=== PATIENT | male | born 1955 | race Asian ===

== ENCOUNTER 2016-10-28 14:32 | Emergency (ER) | payer OTHER ==
[~2016-10-28] VITALS: Ht 160 cm; Wt 61.8 kg
[~2016-10-28 14:32] MED LIST: CLR10 PO; CYCL0.05 OP; CZR50 PO; FLNIN/ NAE; LUTE20CA PO; METO25TA3 PO; MULT-506 PO; OMEP20CA59 PO; ZLF/50 PO
[2016-10-28 14:39] VITALS: TEMP 36.3; O2SAT 100
[2016-10-28] MEDS ORDERED: SODIUM CHLORIDE 0.9% 1000ML 1,000 ML IV SCH (14:42)
[2016-10-28] MEDS ORDERED: SODIUM CHLORIDE 0.9% 1000ML 1,000 ML IV STA (14:42)
[2016-10-28] MEDS ORDERED: SODIUM CHLORIDE 0.9% 500ML 500 ML IV STA (14:42)
[2016-10-28 14:52] VITALS: Ht 160 cm; Wt 61.8 kg
--- NOTE | 2016-10-28 14:59 | DIAGNOSTIC IMAGING REPORT ---
CHEST ONE VIEW PORTABLE HISTORY: Stroke symptoms. COMPARISON: Chest 09/18/2015. FINDINGS: The lungs are clear. Cardiac silhouette is normal in size. No pleural effusions. No pneumothorax. IMPRESSION: No acute process. Electronically signed by: Renard Menendez M.D. 10/28/2016 2:57 PM Dictated Date/Time: 10/28/2016 2:56 PM
--- NOTE | 2016-10-28 15:11 | EMERGENCY ROOM VISIT NOTE ---
History Report prepared by [place]: Anibal Leavitt Under the Supervision of: Dr. Alfredo Day M.D. 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 Per the patient's son, he was shovelling snow with his father and noticed he was face down on the snow. He is not sure if his father fell, and did not notice his father having difficulty shovelling the snow. He tried to help his father up but he could not support himself. He called his mom for her to come, and together they were able to help his father inside. The son notes that his father has progressive aphasia , but seems slower to respond now than at baseline. He did not have any one- sided weakness. The son states that his father has not been recently ill, has not vomited, and adds that it is not unusual for him to shovel snow. They traveled to [facility] yesterday by car, but have not recently travelled outside of the country. The patient is up to date on his tetanus shot. Per the nurse, EMS reported that the patient was sweaty, had a low systolic pressure, and had a poor radial pulse. He did not receive fluids by EMS. 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 Review of Systems See HPI for pertinent positives & negatives. A total of 10 systems reviewed and were otherwise negative. Past Medical & Surgical Medical Problems: (1) Anxiety (2) HTN (hypertension) (3) Hyperlipemia Family History No significant family history Social History Smoking Status: Former Smoker Marital Status: Housing Status: lives with family Occupation Status: employed Current/Historical Medications Scheduled Cyclosporine Oph 0.05% (Restasis Oph 0.05%), 2 DROPS OP DAILY Losartan Potassium (Losartan Potassium), 50 MG PO DAILY Lutein (Lutein), 20 MG PO DAILY Metoprolol Succinate (Toprol Xl), 25 MG PO DAILY Multivitamin (Multivitamin), 1 TABLET PO DAILY Omeprazole (Prilosec), 20 MG PO DAILY Sertraline HCl (Sertraline HCl), 50 MG PO DAILY Allergies Coded Allergies: Penicillins (Verified Allergy, Intermediate, RASH, 10/28/16) Shellfish (Verified Allergy, Intermediate, HIVES, 10/28/16) Physical Exam Vital Signs Date Time Temp Pulse Resp B/P Pulse Ox O2 Delivery O2 Flow Rate FiO2 10/28/16 18:20 65 18 128/68 100 10/28/16 17:45 63 18 137/62 96 Room Air 10/28/16 16:29 64 18 122/61 97 Room Air 10/28/16 15:18 58 16 131/58 98 Room Air 10/28/16 15:01 60 10/28/16 14:39 36.3 60 14 139/58 100 Room Air 10/28/16 14:39 100 Room Air Physical Exam GENERAL: Patient is in no acute distress. HEENT: No acute trauma, normocephalic atraumatic, mucous membranes moist, no nasal congestion, no scleral icterus. Pupils are equal, round, and reactive to light. NECK: No stridor, no adenopathy, no meningismus, trachea is midline. LUNGS: Clear to auscultation bilaterally, no wheeze, no rhonchi, breath sounds equal. HEART: Without murmurs gallops or rubs, regular rate and rhythm. ABDOMEN: Soft, nontender, bowel sounds positive, no hernias, no peritonitis. EXTREMITIES: No cyanosis or edema, full range of motion of all the joints without pain or difficulty, no signs for acute trauma. NEUROLOGIC: Awake, alert, moving all extremities equally, no obvious focal or motor deficits, no facial droop. Patient is nonverbal which is baseline. SKIN: No rash, no jaundice, no diaphoresis. Medical Decision & Procedures ER Provider Diagnostic Interpretation: X ray results and stated below per my interpretation and radiologist interpretation. Other radiology results and stated below per my review and radiologist interpretation: CHEST ONE VIEW PORTABLE FINDINGS: The lungs are clear. Cardiac silhouette is normal in size. No pleural effusions. No pneumothorax. IMPRESSION: No acute process. Electronically signed by: Renard Menendez M.D. 10/28/2016 2:57 PM Dictated Date/Time: 10/28/2016 2:[address] SCAN OF THE BRAIN WITHOUT IV CONTRAST FINDINGS: Brain parenchyma: There is asymmetric frontal lobe atrophy, which has significantly progressed from the sixth 2012 examination. There is only minimal microangiopathic change. There is no hemorrhage, mass effect, or evidence of acute territorial ischemia by CT criteria. Fernandez-white matter is preserved. No extra-axial fluid collection is seen. Ventricles, sulci, cisterns: Prominent secondary to involutional change. Intracranial vasculature: There is atherosclerotic calcification of the cavernous carotid arteries. Calvarium: Unremarkable. Sinuses and mastoids: There is mild mucosal thickening noted throughout the paranasal sinuses. The mastoid air cells are well pneumatized. Orbits: The bony orbits are grossly intact. IMPRESSION: 1. There is no hemorrhage, mass effect, or evidence of acute territorial ischemia by CT criteria. 2. There is asymmetric frontal lobe atrophy, which has significantly progressed from the 04/07/2012 examination. Nonemergent follow-up with neurology is recommended. Electronically signed by: Alfredo Pacheco M.D. 10/28/2016 3:20 PM Dictated Date/Time: 10/28/2016 3:12 PM Laboratory Results 10/28/16 14:39 Red Blood Count 4.56, Mean Corpuscular Volume 87.7, Mean Corpuscular Hemoglobin 30.7, Mean Corpuscular Hemoglobin Concent 35.0, Mean Platelet Volume 10.6, Neutrophils (%) (Auto) 44.1, Lymphocytes (%) (Auto) 42.1, Monocytes (%) (Auto) 8.5, Eosinophils (%) (Auto) 4.1, Basophils (%) (Auto) 0.6, Neutrophils # (Auto) 3.63, Lymphocytes # (Auto) 3.47, Monocytes # (Auto) 0.70, Eosinophils # (Auto) 0.34, Basophils # (Auto) 0.05 10/28/16 14:39 Test 10/28/16 14:39 10/28/16 15:00 10/28/16 16:40 10/28/16 17:10 White Blood Count 8.24 K/uL (4.8-10.8) Red Blood Count 4.56 M/uL (4.7-6.1) Hemoglobin 14.0 g/dL (14.0-18.0) Hematocrit 40.0 % (42-52) Mean Corpuscular Volume 87.7 fL (80-100) Mean Corpuscular Hemoglobin 30.7 pg (25-34) Mean Corpuscular Hemoglobin Concent 35.0 g/dl (32-36) Platelet Count 199 K/uL (130-400) Mean Platelet Volume 10.6 fL (7.4-10.4) Neutrophils (%) (Auto) 44.1 % Lymphocytes (%) (Auto) 42.1 % Monocytes (%) (Auto) 8.5 % Eosinophils (%) (Auto) 4.1 % Basophils (%) (Auto) 0.6 % Neutrophils # (Auto) 3.63 K/uL (1.4-6.5) Lymphocytes # (Auto) 3.47 K/uL (1.2-3.4) Monocytes # (Auto) 0.70 K/uL (0.11-0.59) Eosinophils # (Auto) 0.34 K/uL (0-0.5) Basophils # (Auto) 0.05 K/uL (0-0.2) RDW Standard Deviation 42.2 fL (36.4-46.3) RDW Coefficient of Variation 13.3 % (11.5-14.5) Immature Granulocyte % (Auto) 0.6 % Immature Granulocyte # (Auto) 0.05 K/uL (0.00-0.02) Prothrombin Time 10.5 SECONDS (9.0-12.0) Prothromb Time International Ratio 1.0 (0.9-1.1) Activated Partial Thromboplast Time 20.1 SECONDS (21.0-31.0) Partial Thromboplastin Ratio 0.8 Anion Gap 11.0 mmol/L (3-11) Est Creatinine Clear Calc Drug Dose 47.4 ml/min Estimated GFR () 67.8 Estimated GFR (Non- 58.5 BUN/Creatinine Ratio 12.8 (10-20) Calcium Level 9.0 mg/dl (8.5-10.1) Magnesium Level 2.1 mg/dl (1.8-2.4) Total Bilirubin 0.5 mg/dl (0.2-1) Direct Bilirubin 0.1 mg/dl (0-0.2) Aspartate Amino Transf (AST/SGOT) 20 U/L (15-37) Alanine Aminotransferase (ALT/SGPT) 26 U/L (12-78) Alkaline Phosphatase 58 U/L (45-117) Total Creatine Kinase 120 U/L (39-308) Creatine Kinase MB 1.6 ng/ml (0.5-3.6) Creatine Kinase MB Ratio 1.3 (0-3.0) Troponin I < 0.015 ng/ml (0-0.045) Total Protein 7.4 gm/dl (6.4-8.2) Albumin 4.1 gm/dl (3.4-5.0) Bedside Glucose 113 mg/dl (70-99) Urine Color YELLOW Urine Appearance CLEAR (CLEAR) Urine pH 6.5 (4.5-7.5) Urine Specific [place] 1.015 (1.000-1.030) Urine Protein TRACE (NEG) Urine Glucose (UA) NEG (NEG) Urine Ketones NEG (NEG) Urine Occult Blood NEG (NEG) Urine Nitrite NEG (NEG) Urine Bilirubin NEG (NEG) Urine Urobilinogen NEG (NEG) Urine Leukocyte Esterase NEG (NEG) Urine WBC (Auto) 1-5 /hpf (0-5) Urine RBC (Auto) 0-4 /hpf (0-4) Urine Hyaline Casts (Auto) 10-30 /lpf (0-5) Urine Epithelial Cells (Auto) >30 /lpf (0-5) Urine Bacteria (Auto) NEG (NEG) Urine Renal Epithelial Cells 0-5 /lpf (0-5) Urine Opiates Screen NEG (NEG) Urine Methadone, Qualitative NEG (NEG) Urine Barbiturates NEG (NEG) Urine Phencyclidine (PCP) Level NEG (NEG) Ur Amphetamine/Methamphetamine NEG (NEG) MDMA (Ecstasy) Screen NEG (NEG) Urine Benzodiazepines Screen NEG (NEG) Urine Cocaine Metabolite NEG (NEG) Urine Marijuana (THC) NEG (NEG) Bedside Troponin I 0.000 ng/ml (0-0.045) Laboratory results reviewed by me. Medications Administered Medications (Trade) Dose Ordered Sig/Nikita Route Start Time Stop Time Status Last Admin Dose Admin Sodium Chloride 500 ml @ 999 mls/hr Q31M STAT IV 10/28/16 14:42 10/28/16 15:12 DC 10/28/16 14:42 999 MLS/HR Sodium Chloride (Nss 1000ml) 1,000 ml @ 125 mls/hr Q8H STAT IV 10/28/16 14:42 10/28/16 19:15 DC 10/28/16 14:42 125 MLS/HR ED Course 1436: The patient was evaluated in room C10. A complete history and physical exam was performed. 1442: Ordered NSS 1,000 ml @ 125 mls/hr IV, NSS 500 ml @ 999 mls/hr IV, and NSS 1,000 ml @ 50 mls/hr IV. 1637: The nurses are working on getting a urine sample from the patient. 1654: I updated the patient. His family his happy is back at baseline. 1755: Nurses note he is back to baseline and did well on an ambulation trial. 1800: Reevaluated the patient. Discussed results and discharge instructions: He verbalized understanding and agreement. The patient is ready for discharge. Medical Decision Differentials include stroke, hypotension, dehydration, dysrhythmia, IL, anemia , electrolyte imbalance, and infection. There is no leukocytosis or concerning anemia. No significant electrolyte abnormality, kidney failure or hepatitis. EKG shows a sinus bradycardia, no acute ischemia. Cardiac enzyme testing 2 is not suggestive of acute cardiac injury. Chest x-ray shows no pneumonia or mediastinal widening. Brain CT shows atrophy, no acute bleed or mass effect. Urine tox is negative. Urinalysis does not show evidence for infection. On exam, the patient had no focal neurologic deficits. The patient received IV saline, his blood pressure has remained stable, he has no complaints or concerns. As per family he is back to baseline. The patient was able to walk in the emergency room at baseline without difficulty. The patient is doing well, he has had no recurrence of symptoms. The cause for the the patient's presentation is unclear although he may have just overdone it with the snow shoveling. The family feels this is likely what happened. The patient would like to be discharged home, this seems reasonable. He can return for worsening symptoms. Impression Primary Impression: Syncope Departure Information Dispostion Home / Self-Care Referrals Iglesia Wade M.D. (PCP) Additional Instructions rest fluids follow with your doctor this week do not overdo it with snow shoveling lab testing today was all ok return if worsening
[2016-10-28 15:18] LABS: BASO % 0.6 %; BASO ABS # 0.05 K/uL (0-0.2); COMPLETE YES; EOS % 4.1 %; IG% 0.6 %; LYMPH % 42.1 %; LYMPH ABS # 3.47 K/uL (1.2-3.4); MEAN CELL VOLUME 87.7 fL (80-100); MEAN CORPUSCULAR HEMOGLOBIN 30.7 pg (25-34); MEAN PLATELET VOLUME 10.6 fL (7.4-10.4); MONO % 8.5 %; NEUT % 44.1 %; PLATELET COUNT 199 K/uL (130-400); RED BLOOD COUNT 4.56 M/uL (4.7-6.1); WHITE BLOOD COUNT 8.24 K/uL (4.8-10.8)
--- NOTE | 2016-10-28 15:21 | DIAGNOSTIC IMAGING REPORT ---
CT SCAN OF THE BRAIN WITHOUT IV CONTRAST CLINICAL HISTORY: Generalized weakness. Stroke like symptoms. COMPARISON STUDY: CT of the brain dated 04/07/2012. TECHNIQUE: Unenhanced axial CT scan of the brain is performed from the vertex to the skull base. CT DOSE: 537.48 mGy.cm FINDINGS: Brain parenchyma: There is asymmetric frontal lobe atrophy, which has significantly progressed from the sixth 2012 examination. There is only minimal microangiopathic change. There is no hemorrhage, mass effect, or evidence of acute territorial ischemia by CT criteria. Fernandez-white matter is preserved. No extra-axial fluid collection is seen. Ventricles, sulci, cisterns: Prominent secondary to involutional change. Intracranial vasculature: There is atherosclerotic calcification of the cavernous carotid arteries. Calvarium: Unremarkable. Sinuses and mastoids: There is mild mucosal thickening noted throughout the paranasal sinuses. The mastoid air cells are well pneumatized. Orbits: The bony orbits are grossly intact. IMPRESSION: 1. There is no hemorrhage, mass effect, or evidence of acute territorial ischemia by CT criteria. 2. There is asymmetric frontal lobe atrophy, which has significantly progressed from the 04/07/2012 examination. Nonemergent follow-up with neurology is recommended. Electronically signed by: Alfredo Pacheco M.D. 10/28/2016 3:20 PM Dictated Date/Time: 10/28/2016 3:12 PM
[2016-10-28 15:28] LABS: PARTIAL THROMBOPLASTIN RATIO 0.8; PROTHROMBIN TIME (PATIENT) 10.5 SECONDS (9.0-12.0)
[2016-10-28 15:38] LABS: ALT/SGPT 26 U/L (12-78); AST/SGOT 20 U/L (15-37); BLOOD UREA NITROGEN 17 mg/dl (7-18); BUN/CREATININE RATIO 12.8 (10-20); CARBON DIOXIDE 27 mmol/L (21-32); CHLORIDE 105 mmol/L (98-107); GLUCOSE 105 mg/dl (70-99); MAGNESIUM 2.1 mg/dl (1.8-2.4); POTASSIUM 3.9 mmol/L (3.5-5.1); SODIUM 143 mmol/L (136-145)
[2016-10-28 15:43] LABS: ALKALINE PHOSPHATASE 58 U/L (45-117); CKMB/CK RATIO 1.3 (0-3.0)
[2016-10-28 17:02] LABS: URINE APPEARANCE CLEAR (CLEAR); URINE BILIRUBIN NEG (NEG); URINE COLOR YELLOW; URINE EPITHELIAL CELL AUTO >30 /lpf (0-5); URINE NITRITE NEG (NEG); URINE PH 6.5 (4.5-7.5); URINE SPECIFIC GRAVITY 1.015 (1.000-1.030); UROBILINOGEN NEG (NEG)
[2016-10-28 17:05] LABS: MANUAL MICROSCOPIC REQUIRED? NO; REVIEW REQ? YES
[2016-10-28 17:21] LABS: BENZODIAZEPINE, URINE NEG (NEG); COCAINE,URINE NEG (NEG); PHENCYCLIDINE, URINE NEG (NEG)
[2016-10-28 18:20] VITALS: BP 128/68; PULSE 65; O2SAT 100
== END 2016-10-28 18:21 | disposition home or self-care (01) ==
LOC: EDBD 14:32 → C.EDC 14:33
DX: R55 Syncope and collapse (principal); I10 Essential (primary) hypertension; Z79.899 Other long term (current) drug therapy; Z87.891 Personal history of nicotine dependence

== ENCOUNTER → 2017-06-17 | Outpatient (CLI) | payer OTHER ==
[~2017-06-17] MED LIST changes: -CLR10 PO; -FLNIN/ NAE
--- NOTE | 2017-06-18 06:25 | PAP/PSG TECHNICIAN REPORT ---
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 Name: LIOR BARRAGAN Interpreting Physician: Mehrdad Batista M.D. 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 Sex: Male Age: 61 StudyType: PSG Weight: 125 lbs Height: 61 years, Height 5' 3" Neck Circum: BMI: 22.14 Medications: Flonase 50 MCG/ACT, Cpzaar 50 mg, Aricept 5 mg, Zoloft 50 mg, Zyrtec 10 mg, Prilosec 20 mg, Patient History Study started on room air with no ETCO2 monitoring in room #6. 61 yr old male here tonight for a possible split psg. He has progressive dementia with loud snoring and witnessed apneas. He did not fill out an ESS. His neck circ=13.5inches. His son is staying in the room with him. Parameters Monitored NPSG: E1-M2, E2-M1, Fp1-M2, Fp2-M1, F3-M2, F4-M2, F4-M1, C3-M2, C4-M2, C4-M1, O1-M2, O2-M2, O2-M1, T3-M2, T4-M1, P3-M2, P4-M1, CHIN1, CHIN2, HR, EKG, Legs, PFLOW, SNOR, FLOW, CFLOW, Tidal Volume, THOR, ABDO, SpO2, PLTH, CPRESS, ETCO2 Wave, ETCO2, pH Sleep Architecture Sleep Stages Time at Lights Off 10:04:44 PM STAGES Time (min.) TST (%) Time at Lights On 5:23:14 AM Wake 165.0 -- Total Recording Time (TRT) 439.00 min. N1 64.5 24 Total Sleep Period (TSP) 309.5 min. N2 176.0 64 Total Sleep Time (TST) 273.5min. N3 8.0 3 Awake Time 165.5 min. REM 25.0 9 Wake after Sleep Onset 117.5 min. Sleep Efficiency (SE) 62 % Sleep Onset Latency (PAXTON) 47.5 min. Number of Stage 1 Shifts None Awakenings 28 Stage Changes 124 Number of REM periods 6 REM 25.0 9 REM Latency 92.5 min. NREM 248.5 91 Body Position Analysis Supine Right Left Side Prone Vertical Total Sleep Time (min.) 428.9 0.0 0.0 0.00 0.0 0.0 Total Sleep Time (%) 100% 0% 0% 0 0% N/A% Total Sleep Time REM (min.) 25.0 0.0 0.0 None 0.0 0.0 Total Sleep Time NREM (min.) 248.5 0.0 0.0 None 0.0 0.0 Intermittent Wake (min.) 155.4 9.6 0.0 None 0.0 0.0 Total Sleep Period (%) 100% None None None None None Arousals Myoclonus (PLM) * Events Count Index Events Count Index Spontaneous 31 7 Events Awake (PLMW) 321 116.7 Respiratory 39 10.1 Events Asleep w/ Arousal (PLMA) 31 6.8 PLM 31 7 Events Asleep w/o Arousal (PLMS) 158 34.7 Snoring 5 1 Total Asleep 189 41.5 Total 105 23 Total 510 70 Respiratory Analysis * CA OA MA CH H RERA Total Count 0 43 1 0 79 0 123 Index 0.0 9.4 0.2 0 17.3 0 27.0 Mean Duration 0.0 21.8 27.7 0.00 26.7 0.0 25.0 Longest Duration 0.0 33.9 27.7 0.00 27.7 0.0 57.2 Respiratory Event Summary Total Supine ~Supine Right Left Prone REM NREM Apneas Count 44 44 N/A N/A N/A N/A 10 34 Index 9.7 10 N/A N/A N/A N/A 24 8 Hypopneas (4% Desat) Count 79 79 N/A N/A N/A N/A 9 70 Index 17.3 17.3 N/A N/A N/A N/A 21.6 16.9 Apneas & All Hypopneas Count 123 123 N/A N/A N/A N/A 19 104 Index 27.0 27 N/A N/A N/A N/A 45.6 25.1 Respiratory Events (Car Icer+All Hyp+RERA) Count 123 123 N/A N/A N/A N/A 19 104 Index 27.0 27 N/A N/A N/A N/A 45.6 25.1 Respiratory Related Arousal Count 39 123 N/A N/A N/A N/A 1 45 Index 10.1 10 N/A N/A N/A N/A 2 11 Snoring Analysis Supine Right Left Prone REM NREM Total Snore duration 17.8 min Snores count 802 N/A N/A N/A 48 754 802 Snore mean duration 1.3 Sec Snores index 176 N/A N/A N/A 115.2 182.1 175.9 TST with snoring (%) 6.5% Desaturation Event Summary: Minimum %SpO2 Event Count Mean/Min/Max Duration(sec.) Desaturation Index % Time In Bed > 90 162 26.0 / 0.0 / 59.3 25.6 86.8 86 - 90 12 17.3 / 1.4 / 30.0 13.3 12.4 81 - 85 0 N/A 0.0 0.8 76 - 80 0 N/A 0.0 0.0 71 - 75 0 N/A 0.0 0.0 66 - 70 0 N/A 0.0 0.0 61 - 65 0 N/A 0.0 0.0 56 - 60 0 N/A 0.0 0.0 51 - 55 0 N/A 0.0 0.0 < 50 0 N/A 0.0 0.0 Total REM NREM Awake <50% 0.0 min. 0.0 min. 0.0 min. 0.0 min. 51 - 60% 0.0 min. 0.0 min. 0.0 min. 0.0 min. 61 - 70% 0.0 min. 0.0 min. 0.0 min. 0.0 min. 71 - 80% 0.1 min. 0.0 min. 0.1 min. 0.0 min. 81 - 90% 57.7 min. 5.1 min. 36.9 min. 15.7 min. 91 - 100% 379.6 min. 19.9 min. 211.5 min. 148.2 min. Average 92 92 92 92 Minimum SpO2 79 80 79 82 Desaturation Event Index 22.7 43.2 29.9 10.9 # Desat. 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 Cardiac arrhythmia and PLM's noted, please see print out No bruxism noted. Snoring was noted and scored as a 3 on a scale of 1 through 5. (0=no snoring, 5=snoring loud enough to be heard through a closed door or down the [address] way) He did not use the restroom during the night. He did not qualify for a split night study. The final report will be interpreted and signed by a sleep physician. The completed physician report will then be placed in the patient medical record. Therapy (cm H2O) 0 TIB (min.) 438.5 TST (min.) 273.5 Sleep Onset (min.) 47.5 REM Onset From Sleep (min.) 92.5 Sleep Efficiency % 62 Wakefulness (%) 38 Wakefulness (min.) 165.5 NREM 1 (%) 24 NREM 1 (min.) 64.5 NREM 2 (%) 64 NREM 2 (min.) 176.0 NREM 3 (%) 3 NREM 3 (min.) 8.0 REM (%) 9 REM (min.) 25.0 # Arousals 105 Arousal Index 23 # Snore 802 Snore Index 175.9 AHI 27.0 AHI Supine 27 AHI Non-Supine N/A NREM AHI 25.1 REM AHI 45.6 RDI 27.0 # Obstructive Apnea 43 # Central Apnea 0 # Mixed Apnea 1 # Hypopneas 79 RERAs 0 Total Respiratory Events 139 Time Below SpO2 89% (min.) 12.3 Mean NREM SpO2 (%) 92 Mean REM SpO2 (%) 92 Mean Sleep SpO2 (%) 92 Min NREM SpO2 (%) 79 Min REM SpO2 (%) 80 Position Supine (min.) 428.9 Position Non-supine (min.) 0.0 LM Index Sleep 41.5 LM Index NREM 40.8 LM Index REM 48.0 Mean Heart Rate (bpm) 52 Min Heart Rate (bpm) 33
--- NOTE | 2017-07-03 15:22 | POLYSOMNOGRAPH REPORT ---
REFERRING PERSON: Dr. Dewayne Batista. CLINICAL PSYCHOLOGY PROFESSOR: Susan Valdez. Mr. Kinsey is a 61-year-old male sent for a possible split night sleep study. He has a history of memory loss, loud snoring and witnessed apneas. His Plain Sleepiness Scale score on the evening of this study was not recorded. BMI is 22.14. His son is staying in the room with him tonight. Following the technical and digital specifications of the [employer] [employer] (AASM) a standard diagnostic polysomnogram was performed monitoring EEG, EOG, EMG (chin and leg deviations), oxygen saturation, body position, digital video, respiratory effort and airflow. The sleep Stage and event scoring was based on the AASM Manual for the Scoring of Sleep and Associated Events 2007 edition. Apneas are defined as a drop in the peak thermal sensor excursion by >90% of baseline for at least 10 seconds. Hypopneas were scored using the 4% oxygen desaturation rule (4A-[employer]ic[employer]) and a decrease in the nasal pressure excursions by >30% of baseline for at least 10 seconds. Respiratory effort-related arousal (RERA's) is defined as a sequence of breaths lasting at least 10 seconds characterized by increasing respiratory effort or flattening of the nasal pressure waveform leading to an arousal from sleep when the sequence of breaths does not meet criteria for an apnea or hypopnea. Apnea Hypopnea index (AHI) is defined as the number of apneas and hypopneas occurring in an hour of sleep. Respiratory disturbance index (RDI) is defined as the number of apneas, hypopneas, and RERA's occurring in an hour of sleep. Mr. Kinsey's total sleep period time was 309.5 minutes. Total sleep time was 273.5 minutes. Sleep efficiency was 62%. Latency to sleep onset was 47.5 minutes. Wake after sleep onset was 117.5 minutes. Total non-REM sleep time was 248.5 minutes. He spent 24% of that time in N1 sleep, 64% in N2 sleep and 3% in N3 sleep. REM latency was 92.5 minutes. Total REM sleep time was 25 minutes or 9% of total sleep time. There were 105 cortical arousals from sleep. 31 of these arousals were spontaneous, 39 were due to respiratory events, 31 due to periodic limb movements of sleep and 5 were due to snoring. There was 189 periodic limb movements noted on this test. Limb movement index was 41.5. Limb movement with arousal index was 6.8. There were no central, 43 obstructive and 1 mixed apnea. There were 79 hypopnea. Apnea-hypopnea index was 27.0 consistent with moderately severe sleep apnea. AHI and supine sleep was 27 and REM was 45.6. This patient slept almost supine the entire night. There were 802 snoring events recorded. Total sleep time with snoring was 6.5%. Mean saturation during sleep was 92% with desaturations of 79%. Saturations were less than 89% for 14.3 minutes of recorded time. There were PACs noted on EKG monitoring. Heart rate was low as 33 beats per minute to a high of 75 beats per minute during sleep. IMPRESSION AND PLAN: A 61-year-old male with evidence of moderately severe sleep apnea and significant nocturnal hypoxemia on this sleep study. 1. The patient would likely benefit from positive airway pressure therapy. He should return to sleep lab for a full night titration and then based on those results, be started on equipment at home. A download from his machine can be reviewed in 1 month both to check compliance as well as AHI and further pressure adjustments can occur at that time. 2. Should this patient be unwilling or unable to tolerate CPAP therapy, he could be referred to ear, nose and throat or oral surgery/dental medicine (if appropriate) to discuss alternative treatments for sleep disordered breathing.
== END | disposition home or self-care (01) ==
LOC: C.NEUR 21:00
PROVIDERS: ATTEND Family Medicine
DX: R06.81 Apnea, not elsewhere classified (principal); R06.83 Snoring; G47.33 Obstructive sleep apnea (adult) (pediatric)

== ENCOUNTER → 2017-08-24 | Outpatient (CLI) | payer OTHER ==
--- NOTE | 2017-08-25 05:01 | PAP/PSG TECHNICIAN REPORT ---
[facility] Oil Developer Polysomnogram Report Study name: None Report date: 08/25/2017 Study date: 08/24/2017 Referring Physician: Carolnie Maria Name: LIOR BARRAGAN Interpreting Physician: Elbert Brewer M.D. Date of : 1955 Oil Developer: SHANE Downing. Sex: Male Age: 61 StudyType: PSG PAP Weight: 125 lbs Height: 61 years, Height 5' 3" Neck Circum:13.5inches BMI: 22.14 Medications: Flonase 50mcg/act, Cozaar 50mg, Aricept 5mg, Zoloft 50mg, Zyrtec 10mg, Prilosec 20mg Patient History Study started on room air with 4cwp cpap in room #6 61 yr old male here tonight for a new titration study. His son is staying with him tonight because of his dementia. He had a diagnostic psg done here 06/17/17 that had an AHI of27. His neck circ=13.5inches. Parameters Monitored NPSG: E1-M2, E2-M1, Fp1-M2, Fp2-M1, F3-M2, F4-M2, F4-M1, C3-M2, C4-M2, C4-M1, O1-M2, O2-M2, O2-M1, T3-M2, T4-M1, P3-M2, P4-M1, CHIN1, CHIN2, HR, EKG, Legs, PFLOW, SNOR, FLOW, CFLOW, Tidal Volume, THOR, ABDO, SpO2, PLTH, CPRESS, ETCO2 Wave, ETCO2, pH Sleep Architecture Sleep Stages Time at Lights Off 9:51:02 PM STAGES Time (min.) TST (%) Time at Lights On 4:46:32 AM Wake 115.5 -- Total Recording Time (TRT) 415.50 min. N1 78.0 26 Total Sleep Period (TSP) 371.0 min. N2 135.5 45 Total Sleep Time (TST) 300.0min. N3 27.5 9 Awake Time 115.5 min. REM 59.0 20 Wake after Sleep Onset 99.0 min. Sleep Efficiency (SE) 72 % Sleep Onset Latency (PAXTON) 16.5 min. Number of Stage 1 Shifts None Awakenings 28 Stage Changes 171 Number of REM periods 7 REM 59.0 20 REM Latency 63.0 min. NREM 241.0 80 Body Position Analysis Supine Right Left Side Prone Vertical Total Sleep Time (min.) 361.0 36.0 0.0 36.00 0.0 0.0 Total Sleep Time (%) 88% 12% 0% 12 0% N/A% Total Sleep Time REM (min.) 59.0 0.0 0.0 None 0.0 0.0 Total Sleep Time NREM (min.) 205.0 36.0 0.0 None 0.0 0.0 Intermittent Wake (min.) 97.0 18.5 0.0 None 0.0 0.0 Total Sleep Period (%) 87% None None None None None Arousals Myoclonus (PLM) * Events Count Index Events Count Index Spontaneous 38 8 Events Awake (PLMW) 97 50.4 Respiratory 31 6.4 Events Asleep w/ Arousal (PLMA) 56 11.2 PLM 54 11 Events Asleep w/o Arousal (PLMS) 208 41.6 Snoring 2 0 Total Asleep 264 52.8 Total 125 25 Total 361 52 Respiratory Analysis * CA OA MA CH H RERA Total Count 2 27 0 0 19 3 48 Index 0.4 5.4 0.0 0 3.8 1 10.2 Mean Duration 16.5 21.0 0.0 0.00 28.4 30.7 24.2 Longest Duration 21.2 31.5 0.0 0.00 0.0 38.3 54.7 Respiratory Event Summary Total Supine ~Supine Right Left Prone REM NREM Apneas Count 29 29 0 0 N/A N/A 11 18 Index 5.8 7 0 0.0 N/A N/A 11 4 Hypopneas (4% Desat) Count 19 19 0 0 N/A N/A 6 13 Index 3.8 4.3 0 0.0 N/A N/A 6.1 3.2 Apneas & All Hypopneas Count 48 48 0 0 N/A N/A 17 31 Index 9.6 11 0 0 N/A N/A 17.3 7.7 Respiratory Events (Neuroscientist+All Hyp+RERA) Count 48 51 0 0 N/A N/A 17 31 Index 10.2 12 0 0.0 N/A N/A 18.3 8.2 Respiratory Related Arousal Count 31 51 0 0 N/A N/A 6 26 Index 6.4 7 0 0 N/A N/A 6 6 Snoring Analysis Supine Right Left Prone REM NREM Total Snore duration 3.5 min Snores count 157 4 N/A N/A 65 96 161 Snore mean duration 1.3 Sec Snores index 36 7 N/A N/A 66.1 23.9 32.2 TST with snoring (%) 1.2% Desaturation Event Summary: Minimum %SpO2 Event Count Mean/Min/Max Duration(sec.) Desaturation Index % Time In Bed > 90 27 27.4 / 5.5 / 55.5 4.2 99.3 86 - 90 0 N/A 0.0 0.6 81 - 85 0 N/A 0.0 0.1 76 - 80 0 N/A 0.0 0.0 71 - 75 0 N/A 0.0 0.0 66 - 70 0 N/A 0.0 0.0 61 - 65 0 N/A 0.0 0.0 56 - 60 0 N/A 0.0 0.0 51 - 55 0 N/A 0.0 0.0 < 50 0 N/A 0.0 0.0 Total REM NREM Awake <50% 0.0 min. 0.0 min. 0.0 min. 0.0 min. 51 - 60% 0.0 min. 0.0 min. 0.0 min. 0.0 min. 61 - 70% 0.0 min. 0.0 min. 0.0 min. 0.0 min. 71 - 80% 0.0 min. 0.0 min. 0.0 min. 0.0 min. 81 - 90% 2.6 min. 0.3 min. 1.8 min. 0.5 min. 91 - 100% 381.9 min. 50.2 min. 233.9 min. 97.7 min. Average 94 94 94 94 Minimum SpO2 81 90 86 81 Desaturation Event Index 3.9 7.1 4.7 1.6 # Desat. Events below 89% 1 N/A 1 N/A Time(%) with Saturation below 89% 0.2 0.0 0.0 0.1 Time(min.) with Saturation below 89% 0.6 0.0 0.1 0.5 Time (mins) REM (mins) NREM (mins) % of TST SpO2 Below 90% 12 2 N10 0.2 SpO2 Below 88% 0 0 0 0 Heart Rate Analysis Min (bpm) Max (bpm) Average (bpm) Awake 42 127 60 NREM 33 73 57 REM 43 127 54 Overall 33 127 56 Supplemental O2 Values Minimum O2 level: None Value Start Time End Time Oil Developer Comments Mr. Barragan slept in the right and supine positions. Cardiac arrhythmia and numerous PLM's noted, please see print outs. No bruxism noted. CPAP was initiated at +4 CMH2O and up-titrated to a level of +15 CMH2O. A medium Quattro Air full face mask by [employer] was used during titration. He did not use the restroom during the night. He did awaken around 4:15 am and started pulling off wires and wanted to end study. The final report will be interpreted and signed by a sleep physician. The completed physician report will then be placed in the patient medical record. Therapy Event: Therapy (cm H20) 4 5 6 7 8 9 10 12 14 15 Total Time at Pressure (min.) 104.1 56.7 37.1 56.2 30.6 8.7 2.1 54.2 12.8 53.1 TST at Pressure (min.) 73.1 45.7 26.1 25.2 30.6 8.2 2.1 53.0 10.9 25.1 # Periods 1 1 1 1 1 1 1 1 1 1 Sleep Onset (min.) 16.5 0.0 0.0 0.0 0.0 0.0 0.0 0.0 1.8 0.0 REM Onset (min.) 79.5 N/A N/A N/A 29.9 0.3 N/A 38.0 1.8 0.0 Sleep Efficiency % 70 80 70 44 100 94 100 97 85 47 Wakefulness (%) 29.8 19.4 29.6 55.1 0.0 5.8 0.0 2.1 14.5 52.8 Wakefulness (min.) 31.0 11.0 11.0 31.0 0.0 0.5 0.0 1.2 1.8 28.0 NREM 1 (%) 13.5 47.2 42.1 22.4 5.5 25.2 78.0 6.5 0.0 0.0 NREM 1 (min.) 14.0 26.8 15.6 12.6 1.7 2.2 1.6 3.5 0.0 0.0 NREM 2 (%) 44.8 33.4 28.3 22.4 42.2 0.0 22.0 61.9 0.0 0.0 NREM 2 (min.) 46.6 18.9 10.5 12.6 12.9 0.0 0.5 33.5 0.0 0.0 NREM 3 (%) 11.5 0.0 0.0 0.0 50.7 0.0 0.0 0.0 0.0 0.0 NREM 3 (min.) 12.0 0.0 0.0 0.0 15.5 0.0 0.0 0.0 0.0 0.0 REM (%) 0.5 0.0 0.0 0.0 1.6 69.0 0.0 29.5 85.5 47.2 REM (min.) 0.5 0.0 0.0 0.0 0.5 6.0 0.0 16.0 10.9 25.1 # Arousals 14 48 26 19 3 6 2 6 0 1 Arousal Index 11.5 63.0 59.7 45.2 5.9 44.0 57.5 6.8 0.0 2.4 # Snore 21 27 9 10 9 13 1 47 10 14 Snore Index 17.2 35.5 20.7 23.8 17.7 95.2 28.8 53.2 54.9 33.5 AHI 0.0 7.9 13.8 14.3 2.0 51.3 28.8 18.1 27.5 0.0 AHI Supine 0.0 7.9 13.8 14.3 2.0 51.3 28.8 18.1 27.5 0.0 AHI Non-Supine 0.0 N/A N/A N/A N/A N/A N/A N/A N/A N/A NREM AHI 0.0 7.9 13.8 14.3 2.0 82.2 28.8 13.0 N/A N/A REM AHI 0.0 N/A N/A N/A 0.0 40.0 N/A 30.0 27.5 0.0 RDI 1.6 7.9 13.8 14.3 3.9 51.3 28.8 18.1 27.5 0.0 # Obstructive 0 3 2 3 0 2 0 14 3 0 # Central Ap 0 0 0 1 1 0 0 0 0 0 # Mixed 0 0 0 0 0 0 0 0 0 0 # Hypopneas 0 3 4 2 0 5 1 2 2 0 RERAS 2 0 0 0 1 0 0 0 0 0 Total Respiratory Events 2 6 6 6 2 7 1 16 5 0 Time Below SpO2 89.00% (min.) 0.0 0.0 0.0 0.1 0.0 0.0 0.0 0.0 0.0 0.0 Mean NREM SpO2 (%) 94 94 95 93 94 94 95 94 N/A N/A Mean REM SpO2 (%) 94 N/A N/A N/A 94 94 N/A 94 95 94 Mean Sleep SpO2 (%) 94 94 95 93 94 94 95 94 95 94 Min NREM SpO2 (%) 92 89 90 86 91 89 92 89 N/A N/A Min REM SpO2 (%) 94 N/A N/A N/A 92 90 N/A 91 92 92 Position Supine (min.) 37.1 45.7 26.1 25.2 30.6 8.2 2.1 53.0 10.9 25.1 Position Non-supine (min.) 36.0 0.0 0.0 0.0 0.0 0.0 0.0 0.0 0.0 0.0 LM Index Sleep 51.7 134.0 94.2 14.3 5.9 22.0 0.0 23.8 65.9 31.1 LM Index NREM 52.1 134.0 94.2 14.3 6.0 27.4 0.0 24.3 N/A N/A LM Index REM 0.0 N/A N/A N/A 0.0 20.0 N/A 22.5 65.9 31.1 Mean Heart Rate (bpm) 57 59 59 58 54 56 58 55 54 52 Min Heart Rate (bpm) 54 51 33 52 51 50 53 48 51 43
--- NOTE | 2017-08-27 10:34 | POLYSOMNOGRAPH REPORT ---
CLINICAL DATA: A 61-year-old male with BMI of 22.14 referred by Caroline Maria for CPAP titration study. He does have dementia. His son stayed with him for the titration study. He had a sleep study done on 06/17/2017 which showed moderate EZE with an AHI of 27. SLEEP ARCHITECTURE: Total sleep period was 371 minutes. Total sleep time was 300 minutes divided between 241 minutes of non-REM sleep and 59 minutes of REM sleep. Sleep onset latency was 16.5 minutes. REM latency was 63 minutes. Sleep efficiency was 72%. Wake after sleep onset was 99 minutes. Sleep consisted of stage N1 26%, stage N2 45%, stage N3 9% and REM 20%. AROUSAL DATA: 125 arousals recorded for an index of 25 per hour. RESPIRATORY DATA: Moderate PLMD was noted. There were 264 limb movements during sleep noted for an index of 52.8 per hour with arousal index of 11.2 per hour. RESPIRATORY DATA: AHI was 9.6. There were 2 central and 27 obstructive apneic episodes. The longest duration of apnea was 31.5 seconds. There were 99 hypopneic episodes with a mean duration of 28.4 seconds. OXIMETRY DATA: No significant hypoxemia was seen. Oxygen maria victoria was 86% during non-REM sleep. Mean saturation was 94%. Time below 88% was less than 1 minute. EKG: Heart rates ranged from 33 to 127 beats per minute. Frequent PACs were noted throughout the night. QUALITY ASSURANCE ENGINEER'S COMMENTS AND TREATMENT SUMMARY: The patient slept in the right and supine positions. The patient used the medium Quattro Air full facemask by [employer]. He was titrated up to 15 cm of water pressure. At his final pressure setting, he slept for 25 minutes with an AHI of 0. At 4:15 a.m., he awoke and started pulling off the wires and wanted to end the study. IMPRESSION: Moderate sleep apnea corrected with CPAP at 15 cm water pressure, medium Quattro Air full facemask by [employer]. RECOMMENDATIONS: The patient could be started on the above-noted treatment regimen and seen back in followup within 90 days to document efficacy and compliance. [facility]
== END | disposition home or self-care (01) ==
LOC: C.NEUR 21:00
PROVIDERS: ATTEND Nurse Practitioner Family
DX: R06.81 Apnea, not elsewhere classified (principal); R06.83 Snoring; G47.33 Obstructive sleep apnea (adult) (pediatric)

== ENCOUNTER 2024-02-07 07:27 | Inpatient (IN) ==
--- OUTSIDE RECORDS SUMMARY | 2024-02-07 07:32 | External Medical Summary | Summary of Care ---
Author Name Unknown Organization [facility] Address [address] [facility] [place] [address] Phone [phone] Care Team Providers Care Air Twist Operator Name Role Phone Gregory Arreola DO Primary Care Provider Encounter Details Date Type Department Care Team (Late st Contact Info) Description 08/27/2023 Telephone Pulmonary Medicine, [facility] [address] [place] [phone] Caroline Maria CRNP [address] [place] [id number] Allergies Active Allergy Reactions Criticality Noted Date Comments Cat Dander Allergy test positive Medium 10/15/2011 Dust Allergy test positive Medium 10/15/2011 Penicillins 10/09/1997 rash Ragweed Allergy test positive Medium 10/15/2011 Shellfish 09/02/2006 hives documented as of this encounter (statuses as of 08/27/2023) Medications Medication Sig Dispensed Refills Start Date End Date Status MULTI-VITAMIN PO TABS None Entered 0 Active LUTEIN 20 MG PO TABS None Entered 0 Ac tive cetirizine (ZYRTEC) 10 MG Tablet Take 1 Tablet by mouth in the morning. 0 Active cycloSPORINE 0.05 % Ophthalmic Emulsion Instill 2 Drops into eye. 0 09/18/2015 Active Prevail Adult Brief Large Use as directed 32 Each 5 08/16/2020 Active Disposable Underpads 17"x24" Use as directed. 5 Each 5 08/16/2020 Active Fish Oil 500 MG Oral Capsule Take 1 Capsule by mouth in the morning. 0 Active Diclofenac Sodium 1 % External Gel (Voltaren)Indication s:Osteoarthritis of both knees, unspecified osteoarthritis type Apply topically to affected area 2 times a day as needed for Pain, Moderate. Apply to the affected area of the knees bilaterally twice daily as needed for pain. 350 g 3 04/18/2021 Active Rollator Ultra-LightIndicatio ns:Dementia associated with other underlying disease without behavioral disturbance (HCC),Dementia without behavioral disturbance, unspecified dementia type,Muscle rigidity,Ambulatory dysfunction rollator with seat 1 Each 0 04/28/2022 Active Carbidopa-Levodopa 25-100 MG Oral Tablet (Sinemet) Take 2 tablets three times daily. 180 Tablet 3 02/26/2023 Active Additional Information Patient taking differently: 1 Tablet Oral Daily(AM), Take 2 tablets three times daily., Reported on 08/13/2023 Metoprolol Tartrate 25 MG Oral Tablet (Lopressor) Take one-half tablet by mouth in the morning and one-half tablet before bedtime. 45 Tablet 7 05/19/2023 Active Losartan Potassium 50 MG Oral Tablet (Cozaar) Take 1 Tablet by mouth in the morning. 90 Tablet 3 05/19/2023 Active Atorvastatin Calcium 20 MG Oral Tablet (Lipitor) Take 1 Tablet by mouth in the morning. 90 Tablet 3 05/19/2023 Active Sertraline HCl 50 MG Oral Tablet (Zoloft) Take 1 Tablet by mouth in the morning. 90 Tablet 3 05/19/2023 Active Donepezil HCl 5 MG Oral Tablet (Aricept) Take 1 Tablet by mouth every night at bedtime. Take with largest meal of the day. 90 Tablet 3 05/19/2023 Active Omeprazole 20 MG Oral Capsule Delayed Release (PriLOSEC) Take 1 Capsule by mouth every night at bedtime. 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 Acute pharyngitis 11/06/2012 11/26/2012 Dysfunction of eustachian tube 11/06/2012 07/06/2017 Allergic rhinitis 11/06/2012 11/26/2012 Speech abnormality 10/15/2011 Overview: Primary Progressive Aphasia More specific code in use. Dyslipidemia, goal to be determined 10/04/2009 12/13/2016 Overview: Per Lipid Taxonomy. Backache 06/12/2009 11/26/2012 ADVANCE DIRECTIVE INFORMATION 05/18/2006 01/10/2020 Overview: Pt has booklet. Historical. ROTATOR CUFF SYND NOS 05/17/20042016 Allergic rhinitis 02/13/2004 01/10/2020 Overview: Acute. Conjunctivitis, allergic 02/13/2004 Shellfish allergy 02/13/2004 01/10/2020 Overview: crab, shrimp - hives Historical. Atopic dermatitis 02/13/2004 07/06/2017 CERVICAL DISC DEGEN 03/28/2003 07/06/20 17 Enthesopathy of knee 03/28/2003 014 Chronic sinusitis 07/06/2017 RHINITIS DUE TO POLLEN 11/26 PURE HYPERCHOLESTEROLEM 09/18 Overview: Per Lipid Taxonomy. documented as of this encounter (statuses as of 08/27/2023) Immunizations Name Administration Dates Next Due COVID-19 mRNA, LNP-s, No Pre serve, 2-Dose Series (Metaps) 01/17/2022,09/13/2021,07/19/2021,01/10,12/20/2020,2020 COVID-19, LNP-s, No Preserve , Melquiades-sucrose, Ages 12+ (Pfizer) 02/11/2022 HEP A - Hepatitis A (Adult > 18 yrs) 06/09/2008 Pneumococcal Conjugate Vacc, 13 Valent (Prevnar) 04/26/2019 Pneumococcal Polysaccharide PPV23 (Pneumovax) 08/07/2020 SEASONAL INFLUENZA, PF, 6 M & Above, IM , (FLULAVAL or FLUZONE) 07/28/2018,07/30/2017 Season Influenza, Quad, PF, Adjuvanted, 65+ Yrs, IM (FLUAD) 07/03/2020 Seasonal Influenza, Quadriva lent Hd (Fluzone Hd) 08/03/2023,07/30/2021 Seasonal Influenza, Quadriva lent, No Preserve, IM 07/18/2016 Seasonal Influenza, Split, I IV3, With Preserve, Inj 08/23/2014,06/23/2012,07/16/2011,07/24,07/24/2009 Seasonal Influenza, Trivalen t, Adjuvanted, 65+ yrs 08/23/2019 TDAP (age 10 and older)(Boostrix) 08/03/2023 TDAP (age 11 and older)(Adacel) 08/20/2010 Varicella Zoster Vaccine (Adult) 02/24/2014 Zoster Vaccine Recombinant (Shingrix) 10/16/2020 ,08/14/2020 documented as of this encounter Social History Tobacco Use Types Packs/Day Years Used Date Smoking Tobacco: Former Cigarettes 20 Q uit: 10/19/1991 Smokeless Tobacco: Never Comments:no passive smoke Alcohol Use Standard Drinks/Week Comments Yes 0 (1 standard drink = 0.6 oz pur e alcohol) very rare PHQ-2 Answer Date Recorded PHQ Adult Total Score 0 02/11/2022 Hunger Vital Sign Answer Date Recorded Within the past 12 months, y ou worried that your food would run out before you got the money to buy more. Never true 04/27/20 22 Within the past 12 months, t he food you bought just didn't last and you didn't have money to get more. Never true 04/27/2022 Sex and Gender Information Value Date Recorded Sex Assigned at Male 04/27/2022 2:45 PM EDT Gender Identity Male 04/27/2022 2:45 PM EDT Sexual Orientation Straight 04/27/2022 2: 45 PM EDT Job Start Date Occupation Industry Not on file Not on file Not on file documented as of this encounter Miscellaneous Notes * Telephone Encounter - Maegan Walsh OSA - 08/27/2023 1:34 PM EST CPAP supply order entered in . documented in this encounter Plan of Treatment Upcoming Encounters Date Type Department Care Team (Late st Contact Info) Description 11/02/2023 1:00 PM EST Office Visit Family Practice [facility] [address] [place] [id number] Teodora Enriquez CRNP [address] [place] [phone] 11/18/2023 4:00 PM EST Office Visit Sleep Disorders [facility] [address] [place] [phone] Caroline Maria CRNP [address] [place] [phone] 01/13/2024 12:20 PM EDT Office Visit Nutrition & Weight Management, [facility] [address] [place] [address] Teodora Dey PA-C [address] [place] [phone] 05/23/2024 12:20 PM EDT Office Visit Family Practice [facility] [address] [place] [phone] Gregory Arreola DO [address] [place] [phone] Health Maintenance Due Date Last Done Comments Albumin/Creatinine Ratio 1971 Depression Screening 02/11/2023 02/11/2022 COVID-19 Vaccine (2022- season) 2023 02/11/2022, 01/17/2022, 09/13/2021, Additional history exists GFR 08/03/2024 08/03/2023, 01/18, 02/04/2021, Additional history exists HbA1c 08/03/2024 08/03/2023, 01/18, 02/04/2021, Additional history exists Lipid Panel 02/11/2027 02/11/2022, 01/17, 07/03/2020, Additional history exists DTaP,Tdap,and Td Vaccines (3 - Td or Tdap) 08/03/2033 08/03/2023, 08/20/2010, 03/05/2001 COLONOSCOPY-EVERY 7 YRS AGES 18-100 Discontinued 09/23/2010, 06/19/2004 Pneumococcal Vaccine: 65+ Years Completed 08/07/2020, 04/26/2019 AAA Screening Completed 08/14/2020 Zoster Vaccines Completed 10/16/2020, 07/20, 02/24/2014 Influenza Vaccine (FLU shot) Completed 08/03/2023, 07/30/2021, 07/03/2020, Additional history exists GARDASIL-HPV IMMUNIZATION SERIES Aged Out No longer eligible based on patient's age to complete this topic Hepatitis B Aged Out No longer eligi ble based on patient's age to complete this topic MENINGOCOCCAL (MENACTRA/MENVEO) Aged Out No longer eligible based on patient's age to complete this topic documented as of this encounter Medical Devices Implanted Type Area Equipment Sales Specialist Device Identifier Shelf Expiration Date Model / Serial / Lot Lens Intraoc 27.5 - [id number] - [id number] Implanted:Qty: 1 on 07/07/2017 by Carlos Monterroso MD at [facility] Left: Eye [employer] 10/18/2018 [id number] / [id number] / Lens Intraoc 27.5 - [id number] - [id number] Implanted:Qty: 1 on 07/16/2017 by Carlos Monterroso MD at OR [facility] Right: Eye [employer] 07/18/2021 [id number] / [id number] / [id number] documented as of this encounter Advance Directives Documents on File Type Date Recorded Patient Rn Disease Management Expl anation Power of Press Tool Maker 06/28/2012 POWER OF A TTORNEY Latest Code Status on File Code Status Date Activated Date Inactivated Comments Full Code 07/16/2017 12:45 PM 07/16/2017 7:17 PM This order reflects the patients wishes and were consensually agreed upon. Code Status History Code Status Date Activated Date Inactivated Comments Full Code 07/07/2017 12:21 PM 07/07/2017 6:27 PM This order reflects the patients wishes and were consensually agreed upon. Care Teams Air Twist Operator Relationship Specialty Start Date End Date Gregory Arreola DO [address] [place] [id number] PCP - General Family Medicine 01/24/20 documented as of this encounter
--- OUTSIDE RECORDS SUMMARY | 2024-02-07 07:32 | External Medical Summary | Summary of Care ---
Author Name Unknown Organization [facility] [address] [address] Phone [phone] Care Team Providers Care Floral Designer Name Role Phone Gregory Arreola DO Primary Care Provider Reason for Visit * Reason Comments Weight Management The pt's family stat ed he is here for a follow up related to malnutrition Encounter Details Date Type Department Care Team (Late st Contact Info) Description 01/13/2024 12:20 PM EDT Office Visit Nutrition & Weight Management, [facility] [address] [place] [id number] Teodora Dey PA-C [address] [place] [id number] Moderate protein-calorie malnutrition (HCC)*; Esophageal dysmotility Allergies Active Allergy Reactions Criticality Noted Date Comments Cat Dander Allergy test positive Medium 10/15/2011 Dust Allergy test positive Medium 10/15/2011 Penicillins 10/09/1997 rash Ragweed Allergy test positive Medium 10/15/2011 Shellfish 09/02/2006 hives documented as of this encounter (statuses as of 01/13/2024) Medications Medication Sig Dispensed Refills Start Date End Date Status MULTI-VITAMIN PO TABS None Entered 0 Active LUTEIN 20 MG PO TABS None Entered 0 Active cetirizine (ZYRTEC) 10 MG Tablet Take 1 Tablet by mouth in the morning. 0 Active cycloSPORINE 0.05 % Ophthalmic Emulsion Instill 2 Drops into eye. 0 5 Active Prevail Adult Brief Large Use as directed 32 Each 5 0 Active Disposable Underpads 17"x24" Use as directed. 5 Each 5 0 Active Fish Oil 500 MG Oral Capsule Take 1 Capsule by mouth in the morning. 0 Active Diclofenac Sodium 1 % External Gel (Voltaren)Indicati ons:Osteoarthritis of both knees, unspecified osteoarthritis type Apply topically to affected area 2 times a day as needed for Pain, Moderate. Apply to the affected area of the knees bilaterally twice daily as needed for pain. 350 g 3 1 Active Rollator Ultra-LightIndicat ions:Dementia associated with other underlying disease without behavioral disturbance (HCC),Dementia without behavioral disturbance, unspecified dementia type,Muscle rigidity,Ambulator y dysfunction rollator with seat 1 Each 0 2 Active Carbidopa-Levodopa 25-100 MG Oral Tablet (Sinemet) Take 2 tablets three times daily. 180 Tablet 3 3 Active Additional Information Patient taking differently: 1 Tablet Oral Daily(AM), (No instructions reported), Reported on 11/09/2023 Metoprolol Tartrate 25 MG Oral Tablet (Lopressor) Take one-half tablet by mouth in the morning and one-half tablet before bedtime. 45 Tablet 7 3 Active Losartan Potassium 50 MG Oral Tablet (Cozaar) Take 1 Tablet by mouth in the morning. 90 Tablet 3 3 Active Atorvastatin Calcium 20 MG Oral Tablet (Lipitor) Take 1 Tablet by mouth every day 90 Tablet 3 3 Active Sertraline HCl 50 MG Oral Tablet (Zoloft) Take 1 Tablet by mouth in the morning. 90 Tablet 3 3 Active Donepezil HCl 5 MG Oral Tablet (Aricept) Take 1 Tablet by mouth every night at bedtime. Take with largest meal of the day. 90 Tablet 3 3 Active Gentamicin Sulfate 0.1 % External Ointment apply 1 application topically daily 30 g 0 11/06/202 3 Active Omeprazole 20 MG Oral Capsule Delayed Release (PriLOSEC) Take 1 Capsule by mouth every night at bedtime. 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, with anxiety Esophageal dysmotility 08/04/2023 Dementia without behavioral disturbance 09/18/20 Other dysphagia 09/18/2021 EZE (obstructive sleep apnea) 07/17/2017 Primary progressive aphasia 10/04/2015 Dyslipidemia, goal LDL below 160 05/31/2015 Reflux esophagitis 10/15/2011 Anxiety state 01/10/2010 HTN, goal below 140/90 08/13/2005 documented as of this encounter (statuses as of 01/13/2024) Resolved Problems Problem Noted Date Diagnosed Date Resolved Date Cough 09/18/2021 04/14/2022 Prediabetes 07/30/2020 09/03/2023 Overview: Per Prediabetes protocol Well adult exam 07/29/2018 01/10/2020 Overview: Acute. Acute pharyngitis 11/06/2012 11/26/2012 Dysfunction of eustachian tube 11/06/2012 07/06/2017 Allergic rhinitis 11/06/2012 11/26/2012 Speech abnormality 10/15/2011 0 Overview: Primary Progressive Aphasia More specific code [...] as of this encounter (statuses as of 01/13/2024) Immunizations Name Administration Dates Next Due COVID-19 mRNA, LNP-s, No Pre serve, 2-Dose Series ([employer]) 01/17/2022,09/13/2021,07/19/2021,01/10,12/20/2020,2020 COVID-19, LNP-s, No Preserve , Melquiades-sucrose, Ages 12+ ([employer]) 02/11/2022 HEP A - Hepatitis A (Adult > 18 yrs) 06/09/2008 Pneumococcal Conjugate Vacc, 13 Valent (Prevnar) 04/26/2019 Pneumococcal Polysaccharide PPV23 (Pneumovax) 08/07/2020 Season Influenza, Quad, PF, Adjuvanted, 65+ Yrs, IM (FLUAD) 07/03/2020 Seasonal Influenza, PF, 6 M & above, IM , (FluLaval or Fluzone) 07/28/2018,07/30/2017 Seasonal Influenza, Quadriva lent Hd (Fluzone Hd) [...] Used Date Smoking Tobacco: Former Cigarettes 20 0 10/19/1971 - 10/19/1991 Smokeless Tobacco: Never Comments:no passive smoke [...] on file documented as of this encounter Last Filed Vital Signs Vital Sign Reading Time Taken Comments Blood Pressure 112/62 01/13/2024 12:35 PM EDT Pulse 68 01/13/2024 12:35 PM EDT Temperature 36.6 C (97.9 F) 01/13/2024 1 2:35 PM EDT Respiratory Rate - - Oxygen Saturation - - Inhaled Oxygen Concentration - - Weight 49.4 kg (108 lb 12.8 oz) 024 12:35 PM EDT Height - - Body Mass Index 18.68 11/09/2023 11:51 AM EST documented in this encounter Progress Notes * Teodora Dey PA-C - 01/13/2024 12:33 PM EDT Images from the original note were not included. MALNUTRITION Referring Physician: PCP OFFICE CALLING Source of information: Patient and Family Member - son Available records reviewed: Recent provider visits, Imaging, and Labs Reason for Referral: dysphagia Zachery Kinsey is a 67 year old male with a past medical history for dementia and progressive aphasia, who presents [facility]. HPI: WEIGHT HISTORY: Initial visit 08/13/23 body weight 113 Weight today 108 4.6% body weight loss over 5 months Weight has remained stable over the last 2 months Wt Readings from Last 8 Encounters: 01/13/24 49.4 kg (108 lb 12.8 oz) 11/09/23 49.5 kg (109 lb 3.2 oz) 08/13/23 51.5 kg (113 lb 8 oz) 08/03/23 51.5 kg (113 lb 8 oz) 02/26/23 56.2 kg (124 lb) 11/25/22 58.1 kg (128 lb) 11/13/22 58.5 kg (129 lb) 04/28/22 58.6 kg (129 lb 4 oz) 01/13/2024 -in clinic follow up -weight down -5 pounds since last visit (4.6%) -here with animal care taker and family -gait/walking seems to be more shaky and unstable -eating has stayed about the same Had Swallowing study done 08/17/23 Study reviewed--- speech pathology findings and recommendations were not sent over-- will request Patient's reports that Avril is the speech pathologist and reviewed with them. He can keep doing what he is doing but caution with water as the thin liquids seem to be what he struggles with He is having one boost shake per day He has oatmeal, PB, in the morning Mac and cheese/ham for lunch Dinner like fish, okra, spinach, rice, etc He does well for about 1 hour of eating and then holds the food in his mouth He does well with the protein shake but sometimes seems to cough a little with water 08/13/23 Lowest body weight is 113 pounds in 2022 Highest body weight is 148 pounds in 2020 Usual BW: 140lbs Weight loss: 35lbs in >1yr %weight loss: 23.6% IBW: 131lbs %IBW: 86% Son lives with patient - provides history. He has had progressive slowing and deterioration. He used to follow with speech therapy at [facility] when using a speech aid, but since he no longer uses this, they have not been following with speech therapy. Son reports few choking episodes, most often with water. Reports that patient will often hold food or liquid in his mouth for a long period of time before swallowing it. Seems to forget that he has food in his mouth. Had COVID over the summer and lost about 10 lb during this time. Weight has been stable since then.He is able to get in 1 boost shake per day. Seems to eat meals when presented. Eats most of the meal. Still taking vitamins and medications orally. Son reports that he chews them up and swallows them. Does not typically swallow his medications whole. Past Medical History: Diagnosis Date Allergic rhinitis 02/13/2004 Atopic dermatitis 02/13/2004 Atrial premature beats History of PAT Chronic sinusitis Cough 09/18/2021 Dyslipidemia, goal LDL below 160 H. pylori duodenitis 2011 improved after antibiotic, had hyponatremia at that time that resolved Hypertension Reflux esophagitis 10/15/2011 ROTATOR CUFF SYND NOS 05/17/2004 Shellfish allergy 02/13/2004 Speech abnormality 10/15/2011 Primary Progressive Aphasia Past Surgical History: Procedure Laterality Date COLONOSCOPY 10/19/2003 repeat 10y COLONOSCOPY, DIAGNOSTIC (RECTUM) 09/23/2010 normal colon exam repeat in 7-10 yeras EGD, FLEXIBLE, DIAGNOSTIC 04/27/2012 UPPER GI ENDOSCOPY DIAGNOSTIC performed by Ahsan Ahuja MD at ENDOSCOPY [facility] EGD, FLEXIBLE, DIAGNOSTIC 04/02/2022 Abnormal esophageal motility / [facility] REMOVE CATARACT, INSERT LENS PROSTH Left 07/07/2017 left EXTRACAPSULAR CATARACT REMOVAL WITH INTRAOCULAR LENS performed by Carlos Monterroso MD at [facility] REMOVE CATARACT, INSERT LENS PROSTH Right 07/16/2017 right EXTRACAPSULAR CATARACT REMOVAL WITH INTRAOCULAR LENS performed by Carlos Monterroso MD at [facility] REPAIR INITIAL INGUINAL HERNIA REDUCIBLE AGE 5 OR MORE 10/19/1985 Inguinal Hernia Repair, Left Social History: Alcohol: None Tobacco Use: No Drug Use: No Marital status: Family History Problem Relation Age of Onset Gastro-intestinal disorder Father Dysentary Gastro-intestinal disorder Mother GERD Hypertension Brother Cancer Brother No h/o colon or prostate cancer COPD Brother EDUCATIONAL BARRIERS: The patient is nonverbal Review of patient's allergies indicates: Allergen Reactions Cats [Cat Dander] Allergy test positive Dust Allergy test positive Ragweed Allergy test positive Penicillins rash Shellfish hives Current Outpatient Medications Medication Sig Dispense Refill MULTI-VITAMIN PO TABS None Entered LUTEIN 20 MG PO TABS None Entered cetirizine (ZYRTEC) 10 MG Tablet Take 1 Tablet by mouth in the morning. cycloSPORINE 0.05 % Ophthalmic Emulsion Instill 2 Drops into eye. Prevail Adult Brief Large Use as directed 32 Each 5 Disposable Underpads 17"x24" Use as directed. 5 Each 5 Fish Oil 500 MG Oral Capsule Take 1 Capsule by mouth in the morning. Diclofenac Sodium 1 % External Gel (Voltaren) Apply topically to affected area 2 times a day as needed for Pain, Moderate. Apply to the affected area of the knees bilaterally twice daily as needed for pain. 350 g 3 Rollator Ultra-Light rollator with seat 1 Each 0 Carbidopa-Levodopa 25-100 MG Oral Tablet (Sinemet) Take 2 tablets three times daily. (Patient taking differently: Take 1 Tablet by mouth in the morning.) 180 Tablet 3 Metoprolol Tartrate 25 MG Oral Tablet (Lopressor) Take one-half tablet by mouth in the morning and one-half tablet before bedtime. 45 Tablet 7 Losartan Potassium 50 MG Oral Tablet (Cozaar) Take 1 Tablet by mouth in the morning. 90 Tablet 3 Atorvastatin Calcium 20 MG Oral Tablet (Lipitor) Take 1 Tablet by mouth every day 90 Tablet 3 Sertraline HCl 50 MG Oral Tablet (Zoloft) Take 1 Tablet by mouth in the morning. 90 Tablet 3 Donepezil HCl 5 MG Oral Tablet (Aricept) Take 1 Tablet by mouth every night at bedtime. Take with largest meal of the day. 90 Tablet 3 Omeprazole 20 MG Oral Capsule Delayed Release (PriLOSEC) Take 1 Capsule by mouth every night at bedtime. 1 hour before the first meal of the day (Patient not taking: Reported on 11/09/2023) 90 Capsule3 Gentamicin Sulfate 0.1 % External Ointment apply 1 application topically daily 30 g 0 No current facility-administered medications for this visit. REVIEW OF SYSTEMS: history obtained from and animal care taker -worsening stiffness of the right arm/hand and gait has become more unsteady -sometimes a little cough with water -no vomiting, no fevers PHYSICAL EXAM: BP 112/62 | Pulse 68 | Temp 36.6 C (97.9 F) | Wt 49.4 kg (108 lb 12.8 oz) | BMI 18.68 kg/m | BSA 1.49 m Constitutional: appears malnourished, no signs of apparent distress present, and patient is cooperative Head/Face: normal on inspection Eyes: conjunctivae clear ENT/Mouth: nasal mucosa is clear Neck: normal to inspection Respiratory: regular rate and effort of breathing Cardiovascular: normal rate IMAGING: EGD 04/02/22 - Abnormal esophageal motility. - Normal stomach. - Normal examined duodenum. - No specimens collected. Swallow study reviewed-- impression at top of note ASSESSMENT AND PLAN: Pharyngoesophageal dysphagia (Primary) - reviewed swallowing study ? Aspiration with thin barium -speech therapist note was not available at time of appointment-- will ask for records from [facility] - spoke with Avril-speech therapist and states they were told to keep the diet as is -discussed the possibility of PEG tube -weight is slowly declining but stable over the last week or two -if on review of speech therapist note and with what family reports-- if no significant aspiration or worry for aspiration and he is able to maintain nutrition with supplements and food-- PEG tube may be of limited benefit -family and animal care taker in agreement -will continue to monitor weight, oral intake and for worsening dysphagia/aspiration Esophageal dysmotility Primary progressive aphasia (HCC) Dementia without behavioral disturbance (HCC) Parkinsonism Overall progression of disease Discussed palliative care referral again and discussion of goals of care. Patient's doesn't want to do that right now but maybe at the next visit and when her son is here -discussed palliative medicine as an option MALNUTRITION: Mr. Kinsey is a 67 year old male with a past medical history listed above, who presents to the GI Nutrition department for weight management consult. Nutritional status is stable at this time. ----Continue current PO diet - add high calorie boost shake daily-- am for 2 shakes per day, try adding protein powder to oatmeal, mac and cheese, etc-- add in extra protein wherever possible --could try protein kumari. They report that the water is so plain he doesn't always want it. Again-- will need to review speech pathologist note and recommendations on thin liquids ----discussed possibility of PEG placement and goals of care --- would like to defer at this time ----pt has home health Pt appears to have advanced dementia/aphasia/parkinsons now including dysphagia and weight loss. Agree with recs as noted above but would also add that a discussion about the goals of care [place] [facility] should precede any PEG tube placement as this is unlikely to improve quality of life nor change progression of advanced neurologic pathology. The patient will return to the GI Nutrition department PRN-- would like to see what primary care team says at upcoming visit Time spent: 40 minutes were spent in the care of this patient. More than half of my time was spent counseling the patient or family. Teodora Dey PA-C, [facility] Nutrition and Weight Management [facility] documented in this encounter Nursing Notes * Lul Oconnor LPN - 01/13/2024 12:35 PM EDT Chief Complaint Patient presents with Weight Management The pt's family stated he is here for a follow up related to malnutrition documented in this encounter Plan of Treatment Upcoming Encounters Date Type Department Care Team (Late st Contact Info) Description 03/10/2024 3:30 PM EDT Office Visit [facility] Disorders Ctr [facility] [address] [place] [phone] Caroline Maria CRNP [address] [place] [phone] 05/23/2024 12:20 PM EDT Office Visit Family Practice [facility] [address] [place] [phone] Gregory Arreola DO [address] [place] [phone] Health Maintenance Due Date Last Done Comments Albumin/Creatinine Ratio 1973 Depression Screening 02/11/2023 02/11/2022 COVID-19 Vaccine (24 season) 2023 02/11/2022, 01/17/2022, 09/13/2021, Additional history [...] this encounter Medical Devices Implanted Type Area Clock And Watch Hands Painter Device Identifier Shelf Expiration Date Model / Serial / Lot Lens Intraoc 27.5 - [id number] - [id number] Implanted:Qty: 1 on 07/07/2017 by Carlos Monterroso MD at [facility] Left: Eye [employer] 10/18/2018 [id number] / [id number] / Lens Intraoc 27.5 - [id number] - [id number] Implanted:Qty: 1 on 07/16/2017 by Carlos Monterroso MD at [facility] Right: Eye [employer] 07/18/2021 [id number] / [id number] / [id number] documented as of this encounter Visit Diagnoses Diagnosis Moderate protein-calorie malnutrition (HCC)- Primary Malnutrition of moderate degree Esophageal dysmotility Dyskinesia of esophagus documented in this encounter Advance Directives Documents on File Type Date Recorded Patient Ginner Helper Expl anation Power of Supervisor Finish End 06/28/2012 POWER OF A TTORNEY Latest Code [...] and were consensually agreed upon. Care Teams Floral Designer Relationship Specialty Start Date End Date Gregory Arreola DO [address] [place] [phone] PCP - General Family Medicine 01/24/20 documented as of this encounter
--- OUTSIDE RECORDS SUMMARY | 2024-02-07 07:32 | External Medical Summary | Summary of Care ---
Author Name Unknown Organization [facility] Address [address] [place] [address] Phone [phone] Care Team Providers Care Draw Machine Operator Name Role Phone Gregory Arreola DO Primary Care Provider Reason for Visit * Reason Comments Return Visit 3 month rech Encounter Details Date Type Department Care Team (Late st Contact Info) Description 11/09/2023 11:40 AM EST Office Visit Family [facility] [address] [facility] [place] [address] Teodora Enriquez CRNP 132 [facility] [place] [address] Nasal septal ulcer*; Ambulatory dysfunction; Parkinsonism, unspecified Parkinsonism type; Dementia in other diseases classified elsewhere, unspecified severity, without behavioral disturbance, psychotic disturbance, mood disturbance, and anxiety (HCC); HTN, goal below 140/90; Dyslipidemia, goal LDL below 160; Gastroesophageal reflux disease with esophagitis, unspecified whether hemorrhage; Esophageal dysmotility; Underweight due to inadequate caloric intake Allergies Active Allergy Reactions Criticality Noted Date Comments Cat Dander Allergy test positive Medium 10/15/2011 Dust Allergy test positive Medium 10/15/2011 Penicillins 10/09/1997 rash Ragweed Allergy test positive Medium 10/15/2011 Shellfish 09/02/2006 hives documented as of this encounter (statuses as of 11/17/2023) Medications Medication Sig Dispensed Refills Start Date [...] Underpads 17"x24" Use as directed. 5 Each 08/16/2020 Active Fish Oil 500 MG Oral [...] by mouth every day 90 Tablet 3 05/19/2023 Active Sertraline HCl [...] the day 90 Capsule 3 05/19/2023 Active Additional Information Patient not taking.Reported on 11/09/2023 Gentamicin Sulfate 0.1 % External Ointment apply 1 application topically daily 30 g 0 08/24/2023 Active Mupirocin 2 % External Ointment (Bactroban)Indicatio ns:Nasal septal ulcer Apply topically to affected area 3 times a day for 14 days. To affected area for up to 14 days. 22 g 1 11/09/2023 Active documented as of this encounter (statuses as of 11/17/2023) Active Problems Problem Noted Date Diagnosed Date [...] behavioral disturbance 09/18/20 21 Other dysphagia 09/18/2021 EZE (obstructive sleep apnea) 07/17/2017 Primary progressive aphasia 10/04/2015 Dyslipidemia, goal LDL below 160 05/31/2015 Reflux esophagitis 10/15/2011 Anxiety state 01/10/2010 HTN, goal below 140/90 08/13/2005 documented as of this encounter (statuses as of 11/17/2023) Resolved Problems Problem Noted Date Diagnosed Date [...] as of this encounter (statuses as of 11/17/2023) Immunizations Name Administration Dates Next Due COVID-19 mRNA, LNP-s, No Pre serve, 2-Dose Series ([employer]) 01/17/2022,09/13/2021,07/19/2021,01/10,12/20/2020,2020 COVID-19, LNP-s, No Preserve , Melquiades-sucrose, Ages 12+ ([employer]) 02/11/2022 HEP A - Hepatitis A (Adult [...] Sign Reading Time Taken Comments Blood Pressure 110/58 11/09/2023 11:51 AM EST Pulse 51 11/09/2023 11:51 AM EST Temperature 36.1 C (96.9 F) 11/09/2023 11:[address] Respiratory Rate - - Oxygen Saturation 100% 11/09/2023 11:51 AM EST Inhaled Oxygen Concentration - - Weight 49.5 kg (109 lb 3.2 oz) 11/09/2023 11:51 AM EST Height 162.6 cm (5' 4") 11/09/2023 11:51 AM EST Body Mass Index 18.74 11/09/2023 11:51 AM EST documented in this encounter Progress Notes * Teodora Enriquez CRNP - 11/17/2023 9:57 AM EST Images from the original note were not included. History of Present Illness Zachery Kinsey is a 67 year old male that presents for Return Visit (3 month rech) HPI Here in follow up with , son. Has lost weight since last visit and seems overall weaker. Met with nutrition and trying to incorporate shakes into diet daily. Still managing ok at home but he is less active. Requires wheelchair more often. Pressure ulcer on nose has healed. Has some erythema at the opening on nares. is wondering what would be next if his PO intake continues to decline. Outpatient Medications Marked as Taking for the 11/09/23 encounter (Office Visit) with Teodora Enriquez CRNP Medication Sig Mupirocin 2 % External Ointment (Bactroban) Apply topically to affected area 3 times a day for 14 days. To affected area for up to 14 days. Gentamicin Sulfate 0.1 % External Ointment apply 1 application topically daily Atorvastatin Calcium 20 MG Oral Tablet (Lipitor) Take 1 Tablet by mouth every day Donepezil HCl 5 MG Oral Tablet (Aricept) Take 1 Tablet by mouth every night at bedtime. Take with largest meal of the day. Losartan Potassium 50 MG Oral Tablet (Cozaar) Take 1 Tablet by mouth in the morning. Metoprolol Tartrate 25 MG Oral Tablet (Lopressor) Take one-half tablet by mouth in the morning and one-half tablet before bedtime. Sertraline HCl 50 MG Oral Tablet (Zoloft) Take 1 Tablet by mouth in the morning. Rollator Ultra-Light rollator with seat Diclofenac Sodium 1 % External Gel (Voltaren) Apply topically to affected area 2 times a day as needed for Pain, Moderate. Apply to the affected area of the knees bilaterally twice daily as needed for pain. Fish Oil 500 MG Oral Capsule Take 1 Capsule by mouth in the morning. Disposable Underpads 17"x24" Use as directed. Prevail Adult Brief Large Use as directed cycloSPORINE 0.05 % Ophthalmic Emulsion Instill 2 Drops into eye. cetirizine (ZYRTEC) 10 MG Tablet Take 1 Tablet by mouth in the morning. LUTEIN 20 MG PO TABS None Entered MULTI-VITAMIN PO TABS None Entered Physical Exam Vitals: 11/09/23 1151 Temp: 36.1 C (96.9 F) Pulse: 51 SpO2: 100% BP: 110/58 BMI: 18.73 Physical Exam Vitals reviewed. Constitutional: General: He is not in acute distress. Comments: withdrawn HENT: Head: Normocephalic and atraumatic. Nose: No congestion or rhinorrhea. Comments: Small area of erythema R nose Mouth/Throat: Mouth: Mucous membranes are moist. Eyes: Conjunctiva/sclera: Conjunctivae normal. Pupils: Pupils are equal, round, and reactive to light. Cardiovascular: Rate and Rhythm: Bradycardia present. Heart sounds: Normal heart sounds. Pulmonary: Effort: No respiratory distress. Breath sounds: No wheezing, rhonchi or rales. Comments: Diminished breath sounds at bases bilaterally Abdominal: General: Abdomen is flat. There is no distension. Tenderness: There is no abdominal tenderness. Musculoskeletal: Right lower leg: No edema. Left lower leg: No edema. Skin: General: Skin is warm and dry. Capillary Refill: Capillary refill takes less than 2 seconds. Neurological: Mental Status: He is alert. Mental status is at baseline. Psychiatric: Comments: Withdrawn, aphasic Assessment and Plan Nasal septal ulcer - Mupirocin 2 % External Ointment (Bactroban); Apply topically to affected area 3 times a day for 14 days. To affected area for up to 14 days. Ambulatory dysfunction - DURABLE MEDICAL EQUIPMENT Underweight due to inadequate caloric intake Discussed role of palliative care in goals of care discussion -- family will consider Discussed possibility of feeding tube placement -- keep scheduled follow up with nutrition/GI to monitor weight/intake and discuss this procedure Parkinsonism, unspecified Parkinsonism type Discussed role of palliative care in goals of care discussion -- family will consider Dementia in other diseases classified elsewhere, unspecified severity, without behavioral disturbance, psychotic disturbance, mood disturbance, and anxiety (HCC) HTN, goal below 140/90 Dyslipidemia, goal LDL below 160 Gastroesophageal reflux disease with esophagitis, unspecified whether hemorrhage Esophageal dysmotility Able to tolerate some PO fluids/food per family with minimal coughing/gagging -- follow up if swallowing becomes more difficult or if s/s of pneumonia would develop -- acute mental status change, fever, s/s of systemic illness Wrap-Up Check-out note: Please reschedule sleep medicine follow up Time: I spent a total of 30-39 minutes (exact time 30 mins) on the date of service in preparation, delivery, and documentation of the care provided to Zachery Kinsey excluding any time spent in the performance of separately billed services. documented in this encounter Nursing Notes * Michelle Appiah LPN - 11/09/2023 11:44 AM EST The patient has been properly identified by confirmation of name and date of . Chief Complaint Patient presents with Return Visit 3 month rech Pt has lost some weight. Trying to incorporate more boost shakes in to his diet. BM every 2-3 days. Using the colace to help with BM, less straining. Eating very slow, the choking is better. Drinking from straw. More fatigue in the morning. Ambulating is weak-- has to be held to walk, losing balance. Unable to get up by himself. NO ambulatory devices being used right now, has roller walker at home. Back stiffness makes it difficult to walk. Did not get hospital bed due to monthly charges, got twin bed for him moved down stairs. Did not get stair lift due to moving him down stairs, Can re evaluate later if needed. They are still in need of personal wheel chair-- DME pended. They use [employer] for other DME (CPAP) documented in this encounter Plan of Treatment Upcoming Encounters Date Type Department Care Team (Late st Contact Info) Description 01/13/2024 12:20 PM EDT Office Visit Nutrition & Weight Management, [address] [place] [address] Teodora Dey PA-C [address] [place] [address] 03/10/2024 3:30 PM EDT Office Visit Sleep Disorders Ctr [facility] [address] [place] [phone] Caroline Maria CRNP [address] [place] [address] 05/23/2024 12:20 PM EDT Office Visit Family Practice [facility] [address] [place] [address] Gregory Arreola DO [address] [place] [address] Health Maintenance Due Date Last Done Comments Albumin/Creatinine Ratio 1971 Depression Screening 02/11/2023 02/11/2022 COVID-19 Vaccine (2022-24 season) 2023 02/11/2022, 01/17/2022, 09/13/2021, Additional history [...] this encounter Medical Devices Implanted Type Area Engraver Automatic Device Identifier Shelf Expiration Date Model / Serial / Lot Lens Intraoc 27.5 - [id number] - [id number] Implanted:Qty: 1 on 07/07/2017 by Carlos Monterroso MD at OR [facility] Left: Eye [employer] 10/18/2018 [id number] / [id number] / Lens Intraoc 27.5 - [id number] - [id number] Implanted:Qty: 1 on 07/16/2017 by Carlos Monterroso MD at OR [facility] Right: Eye [employer] 07/18/2021 [id number] / [id number] / [id number] documented as of this encounter Visit Diagnoses Diagnosis Nasal septal ulcer- Primary Other diseases of nasal cavity and sinuses Ambulatory dysfunction Parkinsonism, unspecified Parkinsonism type Dementia in other diseases classified elsewhere, unspecified severity, without behavioral disturbance, psychotic disturbance, mood disturbance, and anxiety (HCC) HTN, goal below 140/90 Unspecified essential hypertension Dyslipidemia, goal LDL below 160 Other and unspecified hyperlipidemia Gastroesophageal reflux disease with esophagitis, unspecified whether hemorrhage Esophageal dysmotility Dyskinesia of esophagus Underweight due to inadequate caloric intake documented in this encounter Advance Directives Documents on File Type Date Recorded Patient Oyster Tonger Expl anation Power of Neonatal Nurse Practitioner 06/28/2012 POWER OF A TTORNEY Latest Code [...] and were consensually agreed upon. Care Teams Draw Machine Operator Relationship Specialty Start Date End Date Gregory Arreola DO [address] [place] [address] PCP - General Family Medicine 01/24/20 documented as of this encounter
--- OUTSIDE RECORDS SUMMARY | 2024-02-07 07:32 | External Medical Summary | Summary of Care ---
Author Name Unknown Organization [facility] Address [address] [place] [address] Phone [phone] Care Team Providers Care Information Security Director Name Role Phone Gregory Arreola DO Primary Care Provider Reason for Visit * Reason Comments dysphagia Increased nasal drg and dysphagia since 01/19/2024. Cough x 6 days, shallow breathing noted per son, no audible wheezing per pt's and son Increase in weakness and decreased appetite. Home Covid test negative on 01/22/24. Encounter Details Date Type Department Care Team (Late st Contact Info) Description 01/25/2024 10:20 AM EDT [facility] [place] [address] Gregory Arreola DO [address] [place] [address] Acute cough*; Dementia in other diseases classified elsewhere, unspecified severity, without behavioral disturbance, psychotic disturbance, mood disturbance, and anxiety (HCC); Primary progressive aphasia (HCC); Pressure ulcer of other site, stage 3 (HCC); Anxiety state Allergies Active Allergy Reactions Criticality Noted Date Comments Cat Dander Allergy test positive Medium 10/15/2011 Dust Allergy test positive Medium 10/15/2011 Penicillins 10/09/1997 rash Ragweed Allergy test positive Medium 10/15/2011 Shellfish 09/02/2006 hives documented as of this encounter (statuses as of 01/25/2024) Medications Medication Sig Dispensed Refills Start Date [...] the day. 90 Tablet 3 05/19/2023 Active Gentamicin Sulfate 0.1 % External Ointment apply 1 application topically daily 30 g 0 08/24/2023 Active Moxifloxacin HCl 400 MG Oral Tablet (Avelox)Indications: Acute cough,Primary progressive aphasia (HCC) Take 1 Tablet by mouth in the morning. until gone.. 10 Tablet 0 01/25/2024 Active Clindamycin Palmitate HCl 75 MG/5ML Oral Solution Reconstituted ([facility] [facility])Indication s:Dementia in other diseases classified elsewhere, unspecified severity, without behavioral disturbance, psychotic disturbance, mood disturbance, and anxiety (HCC),Acute cough,Primary progressive aphasia (HCC) Take 20 mL by mouth in the morning and 20 mL at noon and 20 mL before bedtime. Do all this for 10 days. 600 mL 0 01/25/2024 Active documented as of this encounter (statuses as of 01/25/2024) Active Problems Problem Noted Date Diagnosed Date [...] 10/04/2015 Dyslipidemia, goal LDL below 160 05/31/2015 Anxiety state 01/10/2010 HTN, goal below 140/90 08/13/2005 documented as of this encounter (statuses as of 01/25/2024) Resolved Problems Problem Noted Date Diagnosed Date Resolved Date Cough 09/18/2021 04/14/2022 Prediabetes 07/30/2020 09/03/2023 Overview: Per Prediabetes protocol Well adult exam 07/29/2018 01/10/2020 Overview: Acute. Acute pharyngitis 11/06/2012 11/26/2012 Dysfunction of eustachian tube 11/06/2012 07/06/2017 Allergic rhinitis 11/06/2012 11/26/2012 Reflux esophagitis 10/15/2011 4 Overview: duplicate Speech abnormality 10/15/2011 0 Overview: Primary Progressive [...] as of this encounter (statuses as of 01/25/2024) Immunizations Name Administration Dates Next Due COVID-19 mRNA, LNP-s, No Pre serve, 2-Dose Series ([employer]) 01/17/2022,09/13/2021,07/19/2021,01/10,12/20/2020,2020 COVID-19, LNP-s, No Preserve , Melquiades-sucrose, Ages 12+ ([employer]) 02/11/2022 HEP A - Hepatitis A (Adult [...] 0 10/19/1971 - 10/19/1991 Smokeless Tobacco: Never Tobacco Cessation:Counseling Given: Not Answered Comments:no passive smoke Alcohol Use Standard Drinks/Week [...] Sign Reading Time Taken Comments Blood Pressure 122/70 01/25/2024 10:34 AM EDT Pulse 48 01/25/2024 10:34 AM EDT Temperature - - Respiratory Rate 20 01/25/2024 10:34 AM EDT Oxygen Saturation 90% 01/25/2024 10:34 AM EDT Inhaled Oxygen Concentration - - Weight 46 kg (101 lb 8 oz) 01/25/2024 10:34 AM E DT Height - - Body Mass Index 17.42 11/09/2023 11:51 AM EST documented in this encounter Progress Notes * Gregory Arreola, DO - 01/25/2024 10:26 AM EDT Images from the original note were not included. Assessment and Plan Acute cough Given proclivity for dysphagia And possible currently URI/likely viral Does run a risk of aspiration pneumonia Also seems that swallowing has been getting worse Some weight loss associated - needs ongoing discussion with Family regarding feeding tube vs palliative approach? - XR CHEST 2 VIEWS - Clindamycin Palmitate HCl 75 MG/5ML Oral Solution Reconstituted ([facility]); Take 20 mL by mouth in the morning and 20 mL at noon and 20 mL before bedtime. Do all this for 10 days. Dementia in other diseases classified elsewhere, unspecified severity, without behavioral disturbance, psychotic disturbance, mood disturbance, and anxiety (HCC) - XR CHEST 2 VIEWS - Clindamycin Palmitate HCl 75 MG/5ML Oral Solution Reconstituted ([facility] [facility]); Take 20 mL by mouth in the morning and 20 mL at noon and 20 mL before bedtime. Do all this for 10 days. Primary progressive aphasia (HCC) - Moxifloxacin HCl 400 MG Oral Tablet (Avelox); Take 1 Tablet by mouth in the morning. until gone.. - Clindamycin Palmitate HCl 75 MG/5ML Oral Solution Reconstituted ([facility] [facility]); Take 20 mL by mouth in the morning and 20 mL at noon and 20 mL before bedtime. Do all this for 10 days. Pressure ulcer of other site, stage 3 (HCC) Anxiety state History of Present Illness Zachery Kinsey is a 68 year old male that presents for dysphagia (Increased nasal drg and dysphagiasince 01/19/2024. Cough x 6 days, shallow breathing noted per son, no audible wheezing per pt's and son Increase in weakness and decreased appetite. Home Covid test negative on 01/22/24. ) Presents today for evalution More uRI sx? Cough and congestion Son also has some sx? No fever at home But eating less and less active Physical Exam Vitals: 01/25/24 1034 Pulse: 48 Resp: 20 SpO2: 90% BP: 122/70 Physical Exam Constitutional: Appearance: Normal appearance. HENT: Head: Normocephalic and atraumatic. Cardiovascular: Rate and Rhythm: Regular rhythm. Bradycardia present. Pulmonary: Effort: Pulmonary effort is normal. No respiratory distress. Breath sounds: No wheezing. Neurological: Mental Status: He is alert. Mental status is at baseline. Wrap-Up Time: Total time today was 40 minutes excluding any time spent in the performance of separately billed services. documented in this encounter Plan of Treatment Upcoming Encounters Date Type Department Care Team (Late st Contact Info) Description 03/10/2024 3:30 PM EDT Office Visit Sleep Disorders Ctr [facility] [address] [place] [phone] Caroline Maria CRNP [address] [place] [address] 05/23/2024 12:20 PM EDT Office Visit Family Practice [facility] [address] [place] [address] Gregory Arreola DO [address] [place] [phone] Pending Results Name Type Priority Associated Diagnoses Date /Time XR CHEST 2 VIEWS Medical Imaging STAT Dementia in other diseases classified elsewhere, unspecified severity, without behavioral disturbance, psychotic disturbance, mood disturbance, and anxiety (HCC) Acute cough 01/25/2024 11:29 AM EDT Health Maintenance Due Date Last Done Comments [...] this encounter Medical Devices Implanted Type Area Solar Sales Associate Device Identifier Shelf Expiration Date Model / Serial / Lot Lens Intraoc 27.5 - [id number] - [id number] Implanted:Qty: 1 on 07/07/2017 by Carlos Monterroso MD at OR [facility] Left: Eye [employer] 10/18/2018 [id number] / [id number] / Lens Intraoc 27.5 - [id number] - [id number] Implanted:Qty: 1 on 07/16/2017 by Carlos Monterroso MD at OR [facility] Right: Eye [employer] 07/18/2021 [id number] / [id number] / [id number] documented as of this encounter Visit Diagnoses Diagnosis Acute cough- Primary Dementia in other diseases classified elsewhere, unspecified severity, without behavioral disturbance, psychotic disturbance, mood disturbance, and anxiety (HCC) Primary progressive aphasia (HCC) Aphasia Pressure ulcer of other site, stage 3 (HCC) Anxiety state Anxiety state, unspecified documented in this encounter Advance Directives Documents on File Type Date Recorded Patient 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 Care Teams Information Security Director Relationship Specialty Start Date End Date Gregory Arreola DO [address] [place] [address] PCP - General Family Medicine 01/24/20 documented as of this encounter
--- OUTSIDE RECORDS SUMMARY | 2024-02-07 07:32 | External Medical Summary | Summary of Care ---
Author Name Unknown Organization [facility] Address [address] [facility] [address] Phone [phone] Care Team Providers Care Medical Instructor Name Role Phone Gregory Arreola DO Primary Care Provider Reason for Visit * Reason Onset Date Comments Order Request 11/17/2023 Encounter Details Date Type Department Care Team (Late st Contact Info) Description 11/17/2023 Telephone Family Practice [facility] [address] [facility] [place] [phone] Teodora Enriquez CRNP [address] [place] [phone] Order Request Allergies Active Allergy Reactions Criticality Noted Date [...] mRNA, LNP-s, No Pre serve, 2-Dose Series ([employer]) 01/17/2022,09/13/2021,07/19/2021,01/10,12/20/2020,2020 COVID-19, LNP-s, No Preserve , Melquiades-sucrose, [...] encounter Miscellaneous Notes * Telephone Encounter - Joy Marrero LPN - 11/17/2023 12:30 PM EST Order, demographics, insurance and last OV faxed to [facility]. * Telephone Encounter - Teodora Enriquez CRNP - 11/17/2023 8:40 AM EST DME for wheelchair placed at visit Please send to [facility] to facilitate it getting to appropriate DME supplier documented in this encounter Plan of Treatment Upcoming Encounters Date Type Department Care Team (Late st Contact Info) Description 01/13/2024 12:20 PM EDT Office Visit Nutrition & Weight Management, [facility] [address] [place] [address] Teodora Dey PA-C [address] [place] [address] 03/10/2024 3:30 PM EDT Office Visit Sleep Disorders Ctr [facility] [address] [place] [phone] Caroline Maria CRNP [address] [place] [address] 05/23/2024 12:20 PM EDT Office Visit Family Practice [facility] [address] [place] [address] Gregory Arreola, [address] [place] [address] Health Maintenance Due Date Last Done Comments Albumin/Creatinine Ratio 1973 Depression Screening 02/11/2023 02/11/2022 COVID-19 Vaccine ( season) 2023 02/11/2022, 01/17/2022, 09/13/2021, Additional history [...] this encounter Medical Devices Implanted Type Area Pole Framer Machine Device Identifier Shelf Expiration Date Model / Serial / Lot Lens Intraoc 27.5 - [id number] - [id number] Implanted:Qty: 1 on 07/07/2017 by Carlos Monterroso MD at OR [facility] Left: Eye [employer] 10/18/2018 [id number] / [id number] / Lens Intraoc 27.5 - [id number] - [id number] Implanted:Qty: 1 on 07/16/2017 by Carlos Monterroso MD at OR [facility] Right: Eye [employer] 07/18/2021 [id number] / [id number] / [id number] documented as of this encounter Advance Directives Documents on File Type Date Recorded Patient Friction Saw Operator Expl anation Power of Sales Account Director 06/28/2012 POWER OF A TTORNEY Latest Code [...] and were consensually agreed upon. Care Teams Medical Instructor Relationship Specialty Start Date End Date Gregory Arreola DO [facility] [place] [address] PCP - General Family Medicine 01/24/20 documented as of this encounter
--- OUTSIDE RECORDS SUMMARY | 2024-02-07 07:32 | External Medical Summary | Summary of Care ---
Author Name Unknown Organization [facility] Address [address] [facility] [place] [address] Phone [phone] Care Team Providers Care Supervisor Cooler Service Name Role Phone Gregory Arreola DO Primary Care Provider Encounter Details Date Type Department Care Team (Late st Contact Info) Description 08/24/2023 Telephone Pulmonary Medicine, [facility] [address] [place] [address] Caroline Maria CRNP [address] [place] [address] Allergies Active Allergy Reactions Criticality Noted Date Comments Cat Dander Allergy test positive Medium 10/15/2011 Dust Allergy test positive Medium 10/15/2011 Penicillins 10/09/1997 rash Ragweed Allergy test positive Medium 10/15/2011 Shellfish 09/02/2006 hives documented as of this encounter (statuses as of 08/26/2023) Medications Medication Sig Dispensed Refills Start Date [...] as of this encounter (statuses as of 08/26/2023) Active Problems Problem Noted Date Diagnosed Date [...] as of this encounter (statuses as of 08/26/2023) Resolved Problems Problem Noted Date Diagnosed Date [...] as of this encounter (statuses as of 08/26/2023) Immunizations Name Administration Dates Next Due COVID-19 mRNA, LNP-s, No Pre serve, 2-Dose Series ([facility]) 01/17/2022,09/13/2021,07/19/2021,01/10,12/20/2020,2020 COVID-19, LNP-s, No Preserve , Melquiades-sucrose, [...] encounter Miscellaneous Notes * Telephone Encounter - Ifrah Zapata OSA - 08/24/2023 4:06 PM EST Patient saw wound care and has an infection on top of nose. Pt cannot wear the face mask. Pt needs to know what else he can do or what other item he can wear for now? Please call to advice. [phone] [place], documented in this encounter Plan of Treatment Upcoming Encounters Date Type Department Care Team (Late st Contact Info) Description 11/02/2023 1:00 PM EST Office Visit Family Practice [facility] [address] [place] [address] Teodora Enriquez CRNP [address] [place] [address] 11/18/2023 4:00 PM EST Office Visit [facility] [address] [place] [phone] Caroline Maria CRNP [address] [place] [address] 01/13/2024 12:20 PM EDT Office Visit Nutrition & Weight Management, [facility] [address] [place] [address] Teodora Dey PA-C [address] [place] [address] 05/23/2024 12:20 PM EDT Office Visit Family Practice [facility] [address] [place] [address] Gregory Arreola DO [address] [place] [address] Health Maintenance Due Date Last Done Comments [...] this encounter Medical Devices Implanted Type Area Hardware Test Engineer Device Identifier Shelf Expiration Date Model / Serial / Lot Lens Intraoc 27.5 - [id number] - [id number] Implanted:Qty: 1 on 07/07/2017 by Carlos Monterroso MD at OR [facility] Left: Eye BAUSCH & LOMB 10/18/2018 [id number] / [id number] / Lens Intraoc 27.5 - [id number] - [id number] Implanted:Qty: 1 on 07/16/2017 by Carlos Monterroso MD at OR [facility] Right: Eye BAUSCH & LOMB 07/18/2021 [id number] / [id number] / [id number] documented as of this encounter Advance Directives Documents on File Type Date Recorded Patient Personalized Living Assistant Expl anation Power of Gastrointestinal Technician 06/28/2012 POWER OF A TTORNEY Latest Code [...] and were consensually agreed upon. Care Teams Supervisor Cooler Service Relationship Specialty Start Date End Date Gregory Arreola DO [address] [place] [address] PCP - General Family Medicine 01/24/20 documented as of this encounter
--- OUTSIDE RECORDS SUMMARY | 2024-02-07 07:32 | External Medical Summary | Summary of Care ---
Author Name Unknown Organization [facility] Address [address] [facility] [place] [address] Phone [phone] Care Team Providers Care Automatic Vulcanizing Lead Operator Name Role Phone Gregory Arreola DO Primary Care Provider Encounter Details Date Type Department Care Team (Late st Contact Info) Description 08/24/2023 Telephone Pulmonary Medicine, [facility] [address] [place] [address] Carloine Maria CRNP [address] [place] [address] Allergies Active Allergy Reactions Criticality Noted Date [...] mRNA, LNP-s, No Pre serve, 2-Dose Series ([employer]) 01/17/2022,09/13/2021,07/19/2021,01/10,12/20/2020,2020 COVID-19, LNP-s, No Preserve , Melquiades-sucrose, [...] wear for now? Please call to advice. [phone] [place], documented in this encounter Plan of Treatment Upcoming Encounters Date Type Department Care Team (Late st Contact Info) Description 11/02/2023 1:00 PM EST Office Visit Family Practice [facility] [address] [place] [address] Teodora Enriquez CRNP [address] [place] [address] 11/18/2023 4:00 PM EST Office Visit Sleep Disorders Ctr [facility] [address] [place] [phone] Caroline Maria CRNP [address] [place] [address] [address] 01/13/2024 12:20 PM EDT Office Visit Nutrition & Weight Management, [facility] [address] [place] [address] Teodora Dey PA-C [address] [place] [address] 05/23/2024 12:20 PM EDT Office Visit Family Practice [facility] [address] [place] [address] Gregory Arreola DO [address] [place] [address] Health Maintenance Due Date Last Done Comments [...] this encounter Medical Devices Implanted Type Area Plant Electrical Engineer Device Identifier Shelf Expiration Date Model / Serial / Lot Lens Intraoc 27.5 - [id number] - [id number] Implanted:Qty: 1 on 07/07/2017 by Carlos Monterroso MD at OR [facility] Left: Eye BAUSCH & LOMB 10/18/2018 [id number] / [id number] / Lens Intraoc 27.5 - [id number] - [id number] Implanted:Qty: 1 on 07/16/2017 by Carlos Monterroso MD at OR [facility] Right: Eye BAUSCH & LOMB 07/18/2021 [id number] / [id number] / [id number] documented as of this encounter Advance Directives Documents on File Type Date Recorded Patient Balance Wheel Hand Filer Expl anation Power of Machine Fancy Stitcher 06/28/2012 POWER OF A TTORNEY Latest Code [...] and were consensually agreed upon. Care Teams Automatic Vulcanizing Lead Operator Relationship Specialty Start Date End Date Gregory Arreola DO [address] [place] [address] PCP - General Family Medicine 01/24/20 documented as of this encounter
--- OUTSIDE RECORDS SUMMARY | 2024-02-07 07:32 | External Medical Summary | Summary of Care ---
Author Name Unknown Organization [facility] Address [address] [facility] [place] [address] Phone [phone] Care Team Providers Care Tube Building Machine Operator Name Role Phone Gregory Arreola DO Primary Care Provider Encounter Details Date Type Department Care Team (Late st Contact Info) Description 08/24/2023 Telephone Pulmonary Medicine, [facility] [address] [place] [address] Juan Schmidt CRNP [address] [place] [address] Allergies Active Allergy Reactions Criticality Noted Date [...] mRNA, LNP-s, No Pre serve, 2-Dose Series ([facility]) 01/17/2022,09/13/2021,07/19/2021,01/10,12/20/2020,2020 COVID-19, LNP-s, No Preserve , Melquiades-sucrose, Ages 12+ (Pfizer) 02/11/2022 HEP A - Hepatitis A (Adult > 18 yrs) 06/09/2008, 03/05/2001 Pneumococcal Conjugate Vacc, 13 Valent (Prevnar) 04/26/2019 [...] Influenza, Trivalen t, Adjuvanted, 65+ yrs 08/23/2019 TD - Tetanus/Diptheria (ADULT) 03/05/2001 TDAP (age 10 and older)(Boostrix) 08/03/2023 TDAP (age 11 and older)(Adacel) 08/20/2010 Typhoid Parenteral 03/05/2001 Varicella Zoster Vaccine (Adult) 02/24/2014 Zoster Vaccine [...] as of this encounter Miscellaneous Notes * Addendum Note - Juan Schmidt CRNP - 08/27/2023 1:08 PM ESTAddended by: JUAN SCHMIDT on: 08/27/2023 01:08 PM Modules accepted: Orders * Telephone Encounter - Juan Schmidt CRNP - 08/27/2023 1:04 PM EST Work with [facility] to see if a low profile FFM (vs nasal pillow with chin strap) can be tried. If CPAP is not worn: -Avoid sleeping on his back. -Consider sleeping with HOB elevated or in recliner. * Telephone Encounter - Ifrah Zapata OSA - 08/24/2023 4:06 PM EST Patient saw wound care and has an infection on top of nose. Pt cannot wear the face mask. Pt needs to know what else he can do or what other item he can wear for now? Please call to advice. [phone] [place], documented in this encounter Plan of Treatment Upcoming Encounters Date Type Department Care Team (Late st Contact Info) Description 11/02/2023 1:00 PM EST Office Visit [facility] [address] [place] [address] Teodora Enriquez CRNP [address] [place] [address] 11/18/2023 4:00 PM EST Office Visit Sleep Disorders Ctr [facility] [address] [place] [phone] Juan Schmidt CRNP [address] [place] [address] 01/13/2024 12:20 PM EDT Office Visit Nutrition & Weight Management, [facility] [address] [place] [address] Teodora Dey PA-C [address] [place] [address] 05/23/2024 12:20 PM EDT Office Visit [facility] [address] [place] [address] Gregory Arreola, [address] [place] [address] Health Maintenance Due Date Last Done Comments Albumin/Creatinine Ratio 1971 Depression Screening 02/11/2023 02/11/2022 COVID-19 Vaccine ( season) 2023 02/11/2022, 01/17/2022, 09/13/2021, Additional history exists GFR 08/03/2024 08/03/2023, 0403/2022, 02/04/2021, Additional history exists HbA1c 08/03/2024 08/03/2023, [...] this encounter Medical Devices Implanted Type Area Railroad Crossing Protection Maintainer Device Identifier Shelf Expiration Date Model / Serial / Lot Lens Intraoc 27.5 - [id number] - [id number] Implanted:Qty: 1 on 07/07/2017 by Carlos Monterroso MD at OR [facility] Left: Eye BAUSCH & LOMB 10/18/2018 [id number] / [id number] / Lens Intraoc 27.5 - [id number] - [id number] Implanted:Qty: 1 on 07/16/2017 by Carlos Monterroso MD at OR [facility] Right: Eye BAUSCH & LOMB 07/18/2021 [id number] / [id number] / [id number] documented as of this encounter Visit Diagnoses Diagnosis EZE (obstructive sleep apnea)- Primary Obstructive sleep apnea (adult) (pediatric) documented in this encounter Advance Directives Documents on File Type Date Recorded Patient Quality Review Trainer Expl anation Power of Skid Road Worker 06/28/2012 POWER OF A TTORNEY Latest Code [...] and were consensually agreed upon. Care Teams Tube Building Machine Operator Relationship Specialty Start Date End Date Gregory Arreola DO [address] [place] [address] PCP - General Family Medicine 01/24/20 documented as of this encounter
--- OUTSIDE RECORDS SUMMARY | 2024-02-07 07:32 | External Medical Summary | Summary of Care ---
Author Name Unknown Organization [facility] Address [address] [facility] [place] [address] Phone [phone] Care Team Providers Care Wrist Liner Name Role Phone Gregory Arreola DO Primary Care Provider Encounter Details Date Type Department Care Team (Late st Contact Info) Description 08/24/2023 Telephone Pulmonary Medicine, [facility] [address] [place] [address] Juan Schmidt CRNP [address] [place] [address] Allergies Active Allergy Reactions Criticality Noted Date Comments Cat Dander Allergy test positive Medium 10/15/2011 Dust Allergy test positive Medium 10/15/2011 Penicillins 10/09/1997 rash Ragweed Allergy test positive Medium 10/15/2011 Shellfish 09/02/2006 hives documented as of this encounter (statuses as of 08/28/2023) Medications Medication Sig Dispensed Refills Start Date [...] as of this encounter (statuses as of 08/28/2023) Active Problems Problem Noted Date Diagnosed Date [...] as of this encounter (statuses as of 08/28/2023) Resolved Problems Problem Noted Date Diagnosed Date [...] as of this encounter (statuses as of 08/28/2023) Immunizations Name Administration Dates Next Due COVID-19 mRNA, LNP-s, No Pre serve, 2-Dose Series ([employer]) 01/17/2022,09/13/2021,07/19/2021,01/10,12/20/2020,2020 COVID-19, LNP-s, No Preserve , Melquiades-sucrose, [...] encounter Miscellaneous Notes * Telephone Encounter - Klaudia Cross LPN - 08/28/2023 1:58 PM EST Pt will try nasal pillow and call if still having issues. Will also try elevating the HOB * Addendum Note - Juna Schmidt CRNP - 08/27/2023 1:08 PM ESTAddended by: JUAN SCHMIDT on: 08/27/2023 01:08 PM Modules accepted: Orders * Telephone Encounter - Juan Schmidt CRNP - 08/27/2023 1:04 PM EST Work with [facility] to see if a low profile FFM (vs nasal pillow with chin strap) can be tried. If CPAP is not worn: -Avoid sleeping on his back. -Consider sleeping with HOB elevated or in recliner. * Telephone Encounter - Ifrah Zapata EZE - 08/24/2023 4:06 PM EST Patient saw wound care and has an infection on top of nose. Pt cannot wear the face mask. Pt needs to know what else he can do or what other item he can wear for now? Please call to advice. [phone] [place], documented in this encounter Plan of Treatment Upcoming Encounters Date Type Department Care Team (Late st Contact Info) Description 11/02/2023 1:00 PM EST Office Visit [facility] [address] [place] [address] Teodora Enriquez CRNP [address] [place] [address] 11/18/2023 4:00 PM EST Office Visit Sleep Disorders Ctr [facility] [address] [place] [phone] Juan Schmidt CRNP [address] [place] [address] 01/13/2024 12:20 PM EDT Office Visit Nutrition & Weight Management, [facility] [address] [place] [address] Teodora Dey PA-C [address] [place] [address] 05/23/2024 12:20 PM EDT Office Visit [facility] [address] [place] [address] Gregory Arreola DO [address] [place] [address] Health Maintenance Due Date Last Done Comments [...] this encounter Medical Devices Implanted Type Area Boat Washer Device Identifier Shelf Expiration Date Model / Serial / Lot Lens Intraoc 27.5 - [id number] - [id number] Implanted:Qty: 1 on 07/07/2017 by Carlos Monterroso MD at OR [facility] Left: Eye BAUSCH & LOMB 10/18/2018 [id number] / [id number] / Lens Intraoc 27.5 - [id number] - [id number] Implanted:Qty: 1 on 07/16/2017 by Carlos Monterroso MD at OR [facility] Right: Eye BAUSCH & LOMB 07/18/2021 [id number] / [id number] / [id number] documented as of this encounter Visit Diagnoses Diagnosis EZE (obstructive sleep apnea)- Primary Obstructive sleep apnea (adult) (pediatric) documented in this encounter Advance Directives Documents on File Type Date Recorded Patient Supervisor Pullet Farm Expl anation Power of Newswriter 06/28/2012 POWER OF A TTORNEY Latest Code [...] and were consensually agreed upon. Care Teams Wrist Liner Relationship Specialty Start Date End Date Gregory Arreola DO [address] [place] [address] PCP - General Family Medicine 01/24/20 documented as of this encounter
--- OUTSIDE RECORDS SUMMARY | 2024-02-07 07:33 | External Medical Summary | Summary of Care ---
Author Name Unknown Organization [facility] Address [address] [place] [address] Phone [phone] Care Team Providers Care Chief Deputy Name Role Phone Gregory Arreola DO Primary Care Provider Reason for Visit * Reason Comments Weight Management Weight Loss Still eating by mohayden h. Foods needs to be chopped. Thicker liquids are better. Trying to get an ensure once a day. Ground meats. * Evaluate & Treat - Unlimited Visits (Within 10 days (routine)) - Authorized Specialty Diagnoses / Procedures Referred By Contact Referred To Contact GI NUTRITION/IM / Gastroenterology Diagnoses Underweight due to inadequate caloric intake Teodora Enriquez CRNP [address] [place] [address] Referral ID Status Reason Start Date Expiration Date Visits Requested Visits Authorized [id number] Authorized Specialty Services Required [phone] Encounter Details Date Type Department Care Team (Latest Contact Info) Description 08/13/2023 8:40 AM EDT Office Visit Nutrition & Weight Management, [facility] [address] [place] [address] Adrianne Ball PA-C [address] [place] [address] Pharyngoesophageal dysphagia*; Esophageal dysmotility; Primary progressive aphasia (HCC); Dementia without behavioral disturbance (HCC) Allergies Active Allergy Reactions Criticality Noted Date Comments Cat Dander Allergy test positive Medium 10/15/2011 Dust Allergy test positive Medium 10/15/2011 Penicillins 10/09/1997 rash Ragweed Allergy test positive Medium 10/15/2011 Shellfish 09/02/2006 hives documented as of this encounter (statuses as of 08/17/2023) Medications Medication Sig Dispensed Refills Start Date [...] the day 90 Capsule 3 05/19/2023 Active documented as of this encounter (statuses as of 08/17/2023) Active Problems Problem Noted Date Diagnosed Date [...] as of this encounter (statuses as of 08/17/2023) Resolved Problems Problem Noted Date Diagnosed Date [...] as of this encounter (statuses as of 08/17/2023) Immunizations Name Administration Dates Next Due COVID-19 mRNA, LNP-s, No Pre serve, 2-Dose Series (Pfizer) 01/17/2022,09/13/2021,07/19/2021,01/10,12/20/2020,2020 COVID-19, LNP-s, No Preserve , Melquiades-sucrose, [...] Sign Reading Time Taken Comments Blood Pressure 102/68 08/13/2023 8:41 AM EDT Pulse 76 08/13/2023 8:41 AM EDT Temperature - - Respiratory Rate - - Oxygen Saturation - - Inhaled Oxygen Concentration - - Weight 51.5 kg (113 lb 8 oz) 08/13/2023 8:41 AM EDT Height - - Body Mass Index 19.48 08/03/2023 11:54 AM EDT documented in this encounter Progress Notes * Adrianne Ball PA-C - 08/13/2023 8:52 AM EDT MALNUTRITION CONSULTATION Referring Physician: PCP OFFICE CALLING Source of information: Patient and Family Member - son Available records reviewed: Recent provider visits, Imaging, and Labs Reason for Referral: dysphagia Zachery Kinsey is a 67 year old male with a past medical history for dementia and progressive aphasia, who presents for [facility]. HPI: Son lives with patient - provides history. He has had progressive slowing and deterioration. He used to follow with speech therapy at [facility] when using a speech aid, but since [...] Does not typically swallow his medications whole. WEIGHT HISTORY: The patient's current body weight is Wt Readings from Last 1 Encounters: 08/13/23 51.5 kg (113 lb 8 oz) Lowest body weight is 113 pounds in 2022 Highest body weight is 148 pounds in 2019 Usual BW: 140lbs Weight loss: 35lbs in >1yr %weight loss: 23.6% IBW: 131lbs %IBW: 86% Wt Readings from Last 8 Encounters: 08/13/23 51.5 kg (113 lb 8 oz) 08/03/23 51.5 kg (113 lb 8 oz) 02/26/23 56.2 kg (124 lb) 11/25/22 58.1 kg (128 lb) 11/13/22 58.5 kg (129 lb) 04/28/22 58.6 kg (129 lb 4 oz) 10/28/21 62.8 kg (138 lb 8 oz) 09/18/21 64.9 kg (143 lb) Current Diet: Describes typical diet history/24 hr recall Breakfast: bowl oatmeal with blueberries, banana, PB powder, milk - morning medications Snacks: teacup of milk - doesn't always finish Lunch: salad, egg, parmeasean cheese, olive garden belizean dressing, avocados; and ramen noodles, 2-3 slices deli meat; 1/2 bottle Ensure Snacks: diced fruit OR SF jello parfait, 1/2 bottle Ensure Dinner: 1/3 plate of rice, sauteed veggies, chicken cowan Snacks: 1/2 cup plain yogurt with evening medications Drinks: water, flavored seltzer water Past Medical History: Diagnosis Date Allergic rhinitis [...] performed by Ahsan Ahuja MD at [facility] EGD, FLEXIBLE, DIAGNOSTIC 04/02/2022 Abnormal esophageal motility / [facility] REMOVE CATARACT, INSERT LENS PROSTH Left 07/07/2017 left EXTRACAPSULAR CATARACT REMOVAL WITH INTRAOCULAR LENS performed by Carlos Monterroso MD at OR [facility] REMOVE CATARACT, INSERT LENS PROSTH Right 07/16/2017 right EXTRACAPSULAR CATARACT REMOVAL WITH INTRAOCULAR LENS performed by Carlos Monterroso MD at OR [facility] REPAIR INITIAL INGUINAL HERNIA REDUCIBLE AGE 3 [...] 1 Tablet by mouth in the morning. Prevail Adult Brief Large Use as directed [...] 1 Tablet by mouth in the morning. Take 2 tablets three times daily..) 180 Tablet3 Metoprolol Tartrate 25 MG Oral Tablet (Lopressor) Take one-half tablet by mouth in the morning and one-half tablet before bedtime. 45 Tablet 7 Losartan Potassium 50 MG Oral Tablet (Cozaar) Take 1 Tablet by mouth in the morning. 90 Tablet 3 Atorvastatin Calcium 20 MG Oral Tablet (Lipitor) Take 1 Tablet by mouth in the morning. 90 Tablet 3 Sertraline HCl 50 MG [...] meal of the day 90 Capsule 3 cycloSPORINE 0.05 % Ophthalmic Emulsion Instill 2 Drops into eye. No current facility-administered medications for this visit. REVIEW OF SYSTEMS: history obtained from son Constitutional: reports fatigue Eyes: no complaints ENMT: denies congestion Respiratory: denies shortness of breath with moderate activity and denies wheezing Cardiovascular: denies chest pain GI: denies gastrointestinal complaints : dark urine Musculoskeletal: stiffness Skin: non healing wounds Neuro: reports dementia Psychiatric: denies anxiety, depression, or sleep pattern disturbance Endocrine: denies diabetes Allergy/Immun: denies allergy symptoms PHYSICAL EXAM: BP 102/68 | Pulse 76 | Wt 51.5 kg (113 lb 8 oz) | BMI 19.48 kg/m | BSA 1.53 m Constitutional: appears malnourished, no signs of apparent distress present, and patient is cooperative Head/Face: normal on inspection Eyes: conjunctivae clear ENT/Mouth: nasal mucosa is clear Neck: normal to inspection Respiratory: regular rate and effort of breathing Cardiovascular: regular rate and effort of breathing Abdomen: The abdomen is flat. Lymph Nodes: no palpable or visible regional lymphadenopathy Musculoskeletal: resting comfortably in wheelchair Skin: ulcer on nasal bridge Neuro: no involuntary movement Psychiatric/Mood/Affect: flat affect RECENT LABS: Last Hgb Lab Result: Last HCT Lab Result: Last Basic Metab Panel Lab Result: Results for orders placed or performed in visit on 02/11/22 BASIC METABOLIC PANEL Result Value Ref Range BUN 15 6 - 20 mg/dL Creatinine 1.1 0.6 - 1.2 mg/dL Estimated Glomerular Filtration Rate 71 >=60 mL/min Sodium 141 135 - 146 mmol/L Potassium 4.6 3.5 - 5.1 mmol/L Chloride 103 98 - 107 mmol/L CO2 25 22 - 32 mmol/L Anion Gap 13 7 - 15 mmol/L Glucose 84 70 - 120 mg/dL Calcium 9.5 8.4 - 10.2 mg/dL Last Magnesium Lab Result: Results for orders placed or performed in visit on 07/03/20 MAGNESIUM Result Value Ref Range Magnesium 2.7 (H) 1.5 - 2.6 mg/dL Last Phospherus Lab Result: Lab Results Component Value Date/Time PHOSPHORUS 3.9 12/06/1996 07:11 PM Last Iron Screen Lab Result: Results for orders placed or performed in visit on 08/03/23 IRON SCREEN, INCLUDING TIBC Result Value Ref Range Iron 80 45 - 176 ug/dL Iron Binding Capacity 334 250 - 425 ug/dL Transferrin Saturation Percent 24 15 - 55 % Last HEP Function Lab Panel: Results for orders placed or performed in visit on 05/26/12 HEP FUNCTION PANEL Result Value Ref Range Albumin 4.8 3.8 - 5.0 g/dL AST 27 10 - 50 U/L Alkaline Phosphatase 60 0 - 153 U/L ALT 15 10 - 50 U/L Bilirubin, Total 0.3 0.3 - 1.3 mg/dL Bilirubin, Direct 0.1 0 - 0.3 mg/dL Protein 7.2 6.0 - 8.3 g/dL Last Lipid Panel Lab Result: Results for orders placed or performed in visit on 10/07/17 LIPID PANEL Result Value Ref Range HOURS FASTING 12 hours Triglycerides 181 <200 mg/dL Cholesterol 214 (H) <200 mg/dL HDL Cholesterol 41 >39 mg/dL Cholesterol-HDL Ratio 5.2 LDL Cholesterol 137 (H) 0 - 129 mg/dL Results for orders placed or performed in visit on 02/11/22 LIPID PANEL WITH DIRECT LDL IF TG IS HIGH Result Value Ref Range Triglycerides 134 <=174 mg/dL Cholesterol 127 <200 mg/dL HDL Cholesterol 35 (L) >39 mg/dL Non-HDL Cholesterol 92 <=159 mg/dL LDL Cholesterol 65 <=129 mg/dL Last Vitamin D Lab Result: Last Zinc, Plasma Lab Result: Last PTH, Intact Lab Result: Results for orders placed or performed in visit on 05/26/12 PTH, INTACT Result Value Ref Range PTH 34 15 - 65 pg/mL Last Ionized Calcium Lab Result: Last Vitamin B12 Lab Result: Results for orders placed or performed in visit on 08/03/23 VITAMIN B12 Result Value Ref Range Vitamin B12 885 232 - 1,245 pg/mL Last Vitamin C Lab Result: Last Folic Acid Lab Result: Results for orders placed or performed in visit on 08/03/23 FOLIC ACID Result Value Ref Range Folic Acid >20.0 >4.5 ng/mL Last Copper Serum Lab Result: Last Selenium Level Lab Result: Last Manganese Lab Result: Last Vitamin A Lab Result: Last Vitamin E Lab Result: Last Hemoglobin A1C Lab Result: Results for orders placed or performed in visit on 08/03/23 HEMOGLOBIN A1C Result Value Ref Range Hemoglobin A1C 5.5 4.0 - 5.6 % Estimated Average Glucose 111 <126 mg/dL IMAGING: EGD 04/02/22 - Abnormal esophageal motility. - Normal stomach. - Normal examined duodenum. - No specimens collected. Available records reviewed: Not available ASSESSMENT AND PLAN: Pharyngoesophageal dysphagia (Primary) - FLUORO ESOPHAGRAM ENTIRE - SPEECH THERAPY,HOME,CREW LEAD Esophageal dysmotility Primary progressive aphasia (HCC) Dementia without behavioral disturbance (HCC) MALNUTRITION: Mr. Kinsey is a 67 year old male with a past medical history listed above, who presents to the GI Nutrition department for weight management consult. Nutritional status is stable at this time. ----Continue current PO diet - add high calorie boost shake daily ----Orders were communicated with the pharmacy and/or the patient and son ----will discuss possibility of PEG placement in the future- need goals of care discussion with family ----swallow study and speech therapy evaluation ordered today ----pt has home health referral active The patient will return to the GI Nutrition department in 4 month(s). Time spent: 60 minutes were spent in the care of this patient. More than half of my time was spent counseling the patient or family. Adrianne Ball PA-C [facility] I performed a chart review of the patient on 08/13/2023, including specifically the history and physical as well as assessment and plan as noted above and in more detail below. I have discussed the patient's management with the advanced practitioner. Please refer to their note for the documented findings and plan of care. Pt appears to have advanced dementia/aphasia/parkinsons now including dysphagia and weight loss. Agree with recs as noted above but would also add that a discussion about the goals of care care home should precede any PEG tube placement as this is unlikely to improve quality of life nor change progression of advanced neurologic pathology. Joy Mendoza, Associate Physician Nutrition and Weight Management Department documented in this encounter Nursing Notes * Jasmin Hubbard LPN - 08/13/2023 8:45 AM EDT Pt verified identity by last name and date. Chief Complaint Patient presents with Weight Management Weight Loss Still eating by mouth. Foods needs to be chopped. Thicker liquids are better. Trying to get an ensure once a day. Ground meats. ' documented in this encounter Miscellaneous Notes * Addendum Note - Rosita Keen RN - 08/17/2023 8:07 AM EDTAddended by: ROSITA KEEN on: 08/17/2023 08:07 AM Modules accepted: Orders documented in this encounter Plan of Treatment Upcoming Encounters Date Type Department Care Team (Late st Contact Info) Description 11/02/2023 1:00 PM EST Office Visit [facility] [address] [address] Teodora Enriquez CRNP [address] [place] [address] 11/18/2023 4:00 PM EST Office Visit Sleep Disorders Ctr [facility] [address] [phone] Caroline Maria CRNP [address] [place] [address] 01/13/2024 12:20 PM EDT Office Visit Nutrition & Weight Management, [facility] [address] [address] Teodora Dey PA-C [address] [place] [address] 05/23/2024 12:20 PM EDT Office Visit [facility] [address] [address] Gregory Arreola, [address] [place] [address] Scheduled Orders Name Type Priority Associated Diagnoses Orde r Schedule SPEECH THERAPY,HOME,CREW LEAD Procedures Routine Pharyngoesophageal dysphagia Ordered: 08/13/2023 Health Maintenance Due Date Last Done Comments [...] this encounter Medical Devices Implanted Type Area Tobacco Roller Device Identifier Shelf Expiration Date Model / Serial / Lot Lens Intraoc 27.5 - [id number] - [id number] Implanted:Qty: 1 on 07/07/2017 by Carlos Monterroso MD at OR [facility] Left: Eye [employer]OM[employer] 10/18/2018 [id number] / [id number] / Lens Intraoc 27.5 - [id number] - [id number] Implanted:Qty: 1 on 07/16/2017 by Carlos Monterroso MD at OR [facility] Right: Eye BAUSCH [employer] LOMB 07/18/2021 [id number] / [id number] / [id number] documented as of this encounter Visit Diagnoses Diagnosis Pharyngoesophageal dysphagia- Primary Dysphagia, pharyngoesophageal phase Esophageal dysmotility Dyskinesia of esophagus Primary progressive aphasia (HCC) Aphasia Dementia without behavioral disturbance (HCC) Dementia, unspecified, without behavioral disturbance documented in this encounter Advance Directives Documents on File Type Date Recorded 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 Care Teams Chief Deputy Relationship Specialty Start Date End Date Gregory Arreola DO [address] [place] [address] PCP - General Family Medicine 01/24/20 documented as of this encounter
--- OUTSIDE RECORDS SUMMARY | 2024-02-07 07:33 | External Medical Summary | Summary of Care ---
Author Name Unknown Organization [facility] Address [address] [place] [address] Phone [phone] Care Team Providers Care Letter Of Credit Clerk Name Role Phone Gregory Arreola DO Primary Care Provider Encounter Details Date Type Department Care Team (Late st Contact Info) Description 08/13/2023 Telephone Nutrition & Weight Management, [facility] [address] [place] [address] Talya Ball PA-C [address] [place] [address] Allergies Active Allergy Reactions Criticality Noted Date Comments Cat Dander Allergy test positive Medium 10/15/2011 Dust Allergy test positive Medium 10/15/2011 Penicillins 10/09/1997 rash Ragweed Allergy test positive Medium 10/15/2011 Shellfish 09/02/2006 hives documented as of this encounter (statuses as of 08/21/2023) Medications Medication Sig Dispensed Refills Start Date [...] as of this encounter (statuses as of 08/21/2023) Active Problems Problem Noted Date Diagnosed Date [...] as of this encounter (statuses as of 08/21/2023) Resolved Problems Problem Noted Date Diagnosed Date [...] as of this encounter (statuses as of 08/21/2023) Immunizations Name Administration Dates Next Due COVID-19 mRNA, LNP-s, No Pre serve, 2-Dose Series ([employer]) 01/17/2022,09/13/2021,07/19/2021,01/10,12/20/2020,2020 COVID-19, LNP-s, No Preserve , Melquiades-sucrose, [...] encounter Miscellaneous Notes * Telephone Encounter - Jasmin Hubbard LPN - 08/21/2023 9:36 AM EDT Called [place]. Left message with Speech dept for get speech path and video swallow study reports faxed over. * Telephone Encounter - Rosita Marquis RN - 08/17/2023 8:05 AM EDT [facility] calling in . Reports this patient is at their facility for a barium swallow. Questioning if thisshould be a video swallow. Verified it looks like the order was changed. Faxed video swallow order.They are going to try to have him have the video swallow this am since he is already there. Verified with talya. Canceled barium order. * Telephone Encounter - Jasmin Hubbard LPN - 08/14/2023 2:27 PM EDT Called [place] and left message to call back. * Telephone Encounter - Talya Ball PA-C - 08/13/2023 11:46 AM EDT I changed the order to video swallow. We are concerned about aspiration. He has home health. Does it need a different order for home speech therapy? * Telephone Encounter - Jasmin Hubbard LPN - 08/13/2023 11:36 AM EDT [facility] calling. Stating they are questioning the order. 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 They do not do the the home things. Pt curerntly scheduled for regular barium swallowing but this will not show the Pharyngeal part of things to see if he is aspirating. He would need to have a video flouroscopic study done if worried aspiration. If we are concerned about a swallowing problem only and not the aspiration then the barium swallow is fine and speech is not involved in that. If we want him to have home speech therapy, he would need to have home health for that. They do do in clinic speech therapy though. documented in this encounter Plan of Treatment Upcoming Encounters Date Type Department Care Team (Late st Contact Info) Description 11/02/2023 1:00 PM EST Office Visit Family Practice [facility] [address] [address] Teodora Enriquez CRNP [address] [address] 11/18/2023 4:00 PM EST Office Visit Sleep Disorders Ctr [facility] [address] [phone] Caroline Maria CRNP [address] [address] 01/13/2024 12:20 PM EDT Office Visit Nutrition & Weight Management, [facility] [address] [place] [address] Teodora Dey PA-C [address] [place] [address] 05/23/2024 12:20 PM EDT Office Visit Family Practice [facility] [address] [address] Gregory Arreola DO [address] [place] [address] Health Maintenance Due Date Last Done Comments [...] this encounter Medical Devices Implanted Type Area Aircraft Skin Burnisher Device Identifier Shelf Expiration Date Model / Serial / Lot Lens Intraoc 27.5 - [id number] - [id number] Implanted:Qty: 1 on 07/07/2017 by Carlos Monterroso MD at OR [facility] Left: Eye [employer]OM[employer] 10/18/2018 [id number] / [id number] / Lens Intraoc 27.5 - [id number] - [id number] Implanted:Qty: 1 on 07/16/2017 by Carlos oMnterroso MD at OR [facility] Right: Eye BAUSCH [employer] LOMB 07/18/2021 [id number] / [id number] / [id number] documented as of this encounter Procedures Procedure Name Priority Date/Time Associated Diagnosis Comments FLUORO SWALLOWING FUNCTION W VIDEO CINE Routine 08/17/2023 Esophageal dysmotility documented in this encounter Results * FLUORO SWALLOWING FUNCTION W VIDEO CINE (08/17/2023) Anatomical Region Laterality Modality Esoph, Neck Other 08/17/2023 Talya Hanna DIAZ-Kirit RAD FLUOROSCO PY documented in this encounter Visit Diagnoses Diagnosis Esophageal dysmotility- Primary Dyskinesia of esophagus documented in this encounter Advance Directives Documents on File Type Date Recorded Patient Emergency Specialist Expl anation Power of Healthcare Recruiter 06/28/2012 POWER OF A TTORNEY Latest Code [...] and were consensually agreed upon. Care Teams Letter Of Credit Clerk Relationship Specialty Start Date End Date Gregory Arreola DO [address] [address] PCP - General Family Medicine 01/24/20 documented as of this encounter
--- OUTSIDE RECORDS SUMMARY | 2024-02-07 07:33 | External Medical Summary | Summary of Care ---
Author Name Unknown Organization [facility] Address [address] [place] [address] Phone [phone] Care Team Providers Care Railway Patrol Officer Name Role Phone Gregory Arreola DO Primary Care Provider Encounter Details Date Type Department Care Team (Late st Contact Info) Description 08/13/2023 Telephone Nutrition & Weight Management, [facility] [address] [place] [address] Adrianne Ball PA-C [address] [place] [address] Allergies Active Allergy Reactions Criticality Noted Date Comments Cat Dander Allergy test positive Medium 10/15/2011 Dust Allergy test positive Medium 10/15/2011 Penicillins 10/09/1997 rash Ragweed Allergy test positive Medium 10/15/2011 Shellfish 09/02/2006 hives documented as of this encounter (statuses as of 08/13/2023) Medications Medication Sig Dispensed Refills Start Date [...] as of this encounter (statuses as of 08/13/2023) Active Problems Problem Noted Date Diagnosed Date [...] as of this encounter (statuses as of 08/13/2023) Resolved Problems Problem Noted Date Diagnosed Date [...] as of this encounter (statuses as of 08/13/2023) Immunizations Name Administration Dates Next Due COVID-19 mRNA, LNP-s, No Pre serve, 2-Dose Series ([employer]R) 01/17/2022,09/13/2021,07/19/2021,01/10,12/20/2020,2020 COVID-19, LNP-s, No Preserve , Melquiades-sucrose, [...] encounter Miscellaneous Notes * Telephone Encounter - Adrianne Ball PA-C - 08/13/2023 11:46 AM EDT I changed the order to video swallow. We are concerned about aspiration. He has home health. Does it need a different order for home speech therapy? * Telephone Encounter - Jasmin Hubbard LPN - 08/13/2023 11:36 AM EDT [facility] calling. Stating they are questioning the order. It says home cigar wrapper tender automatic. They do not do the the home [...] Description 11/02/2023 1:00 PM EST Office Visit [facility] [address] [facility] [place] [address] Teodora Enriquez CRNP [address] [place] [address] 11/18/2023 4:00 PM EST Office Visit Sleep Disorders Ctr [facility] [address] [facility] [place] [phone] Caroline Maria CRNP [address] [place] [address] 01/13/2024 12:20 PM EDT Office Visit Nutrition & Weight Management, [facility] [address] [address] Teodora Dey PA-C [address] [place] [address] 05/23/2024 12:20 PM EDT Office Visit [facility] [address] [address] Gregory Arreola, [address] [place] [address] Scheduled Orders Name Type Priority Associated Diagnoses Orde r Schedule FLUORO SWALLOWING FUNCTION W VIDEO CINE Medical Imaging Routine Esophageal dysmotility Ordered: 08/13/2023 Health Maintenance Due Date Last [...] this encounter Medical Devices Implanted Type Area Drying Room Operator Device Identifier Shelf Expiration Date Model / Serial / Lot Lens Intraoc 27.5 - [id number] - [id number] Implanted:Qty: 1 on 07/07/2017 by Carlos Monterroso MD at OR [facility] Left: Eye [employer]OM[employer] 10/18/2018 [id number] / [id number] / Lens Intraoc 27.5 - [id number] - [id number] Implanted:Qty: 1 on 07/16/2017 by Carlos Monterroso MD at OR [facility] Right: Eye BA[employer]CH [employer] LOMB 07/18/2021 [id number] / [id number] / [id number] documented as of this encounter Visit Diagnoses Diagnosis Esophageal dysmotility- Primary Dyskinesia of esophagus documented in this encounter Advance Directives Documents on File Type Date Recorded Patient Quality Control Analyst Expl anation Power of Global Cmo 06/28/2012 POWER OF A TTORNEY Latest Code [...] and were consensually agreed upon. Care Teams Railway Patrol Officer Relationship Specialty Start Date End Date Gregory Arreola DO [address] [address] PCP - General Family Medicine 01/24/20 documented as of this encounter
--- OUTSIDE RECORDS SUMMARY | 2024-02-07 07:33 | External Medical Summary | Summary of Care ---
Author Name Unknown Organization [facility] Address [address] [place] [address] Phone [phone] Care Team Providers Care Lawn Sprinkler Servicer Name Role Phone Gregory Arreola DO Primary Care Provider Encounter Details Date Type Department Care Team (Late st Contact Info) Description 08/13/2023 Telephone Nutrition & Weight Management, [facility] [address] [place] [address] Talya Ball PA-C [address] [place] [address] Allergies Active Allergy Reactions Criticality Noted Date [...] mRNA, LNP-s, No Pre serve, 2-Dose Series ([employer]) 01/17/2022,09/13/2021,07/19/2021,01/10,12/20/2020,2020 COVID-19, LNP-s, No Preserve , Melquiades-sucrose, [...] encounter Miscellaneous Notes * Telephone Encounter - Rosita Marquis RN [...] are questioning the order. 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 They do not do the the home [...] 1:00 PM EST Office Visit Family Practice [facility] [address] [address] Teodora Enriquez CRNP [address] [address] 11/18/2023 4:00 PM EST Office Visit [facility] Disorders [facility]tr [facility] [address] [phone] Caroline Maria CRNP [address] [place] [address] 01/13/2024 12:20 PM EDT Office Visit Nutrition & Weight Management, [facility] [address] [address] Teodora Dey PA-C [address] [place] [address] 05/23/2024 12:20 PM EDT Office Visit Family Practice [facility] [address] [place] [address] Gregory Arreola DO [address] [place] [address] Scheduled Orders Name Type Priority Associated Diagnoses [...] this encounter Medical Devices Implanted Type Area Cyber Reverse Engineer Device Identifier Shelf Expiration Date Model / Serial / Lot Lens Intraoc 27.5 - [id number] - [id number] Implanted:Qty: 1 on 07/07/2017 by Carlos Monterroso MD at OR [facility] Left: Eye BAUSCH & LOMB 10/18/2018 [id number] / [id number] / Lens Intraoc 27.5 - [id number] - [id number] Implanted:Qty: 1 on 07/16/2017 by Carlos Monterroso MD at OR [facility] Right: Eye BAUSCH & LOMB 07/18/2021 [id number] / [id number] / [id number] documented as of this encounter Visit Diagnoses Diagnosis Esophageal dysmotility- Primary Dyskinesia of esophagus documented in this encounter Advance Directives Documents on File Type Date Recorded 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 Care Teams Lawn Sprinkler Servicer Relationship Specialty Start Date End Date Gregory Arreola DO [address] [address] PCP - General Family Medicine 01/24/20 documented as of this encounter
--- OUTSIDE RECORDS SUMMARY | 2024-02-07 07:33 | External Medical Summary | Summary of Care ---
Author Name Unknown Organization [facility] Address [address] [place] [address] Phone [phone] Care Team Providers Care Dialysis Rn Name Role Phone Gregory Arreola DO Primary Care Provider Encounter Details Date Type Department Care Team (Late st Contact Info) Description 08/13/2023 Telephone Nutrition & Weight Management, [facility] [address] [place] [address] Talya Ball PA-C [address] [place] [address] Allergies Active Allergy Reactions Criticality Noted Date [...] mRNA, LNP-s, No Pre serve, 2-Dose Series ([employer]) 01/17/2022,09/13/2021,07/19/2021,01/10,12/20/2020,2020 COVID-19, LNP-s, No Preserve , Melquiades-sucrose, [...] Encounter - Jasmin Hubbard LPN - 08/21/2023 12:54 PM EDT Call received from [place]. Video swallow radiologist report in scanning. Called medical records * Telephone Encounter - Jasmin Hubbard LPN [...] Hubbard LPN - 08/13/2023 11:36 AM EDT [place] calling. Stating they are questioning the order. 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 They do not do the the home [...] 1:00 PM EST Office Visit Family Practice [facility] [address] [place] [address] Teodora Enriquez CRNP [address] [place] [address] 11/18/2023 4:00 PM EST Office Visit Sleep Disorders [facility]tr [facility] [address] [place] [phone] Caroline Maria CRNP [address] [place] [address] 01/13/2024 12:20 PM EDT Office Visit Nutrition & Weight Management, [facility] [address] [place] [address] Teodora Dey PA-C [address] [place] [address] 05/23/2024 12:20 PM EDT Office Visit Family Practice [facility] [address] [place] [address] Gregory Arreola DO [address] [place] [address] Health Maintenance Due Date Last Done Comments [...] this encounter Medical Devices Implanted Type Area Ocean Freight Agent Device Identifier Shelf Expiration Date Model / Serial / Lot Lens Intraoc 27.5 - [id number] - [id number] Implanted:Qty: 1 on 07/07/2017 by Carlos Monterroso MD at OR [facility] Left: Eye BAUSCH & LOMB 10/18/2018 [id number] / [id number] / Lens Intraoc 27.5 - [id number] - [id number] Implanted:Qty: 1 on 07/16/2017 by Carlos Monterroso MD at OR [facility] Right: Eye BAUSCH & LOMB 07/18/2021 [id number] / [id number] / [id number] documented as of this encounter Procedures Procedure Name Priority Date/Time Associated Diagnosis Comments FLUORO SWALLOWING FUNCTION W VIDEO CINE Routine 08/17/2023 Esophageal dysmotility documented in this encounter Results * FLUORO SWALLOWING FUNCTION W VIDEO CINE (08/17/2023) Anatomical Region Laterality Modality Esoph, Neck Other 08/17/2023 Talya Ball PA-C RAD FLUOROSCO PY documented in this encounter Visit Diagnoses Diagnosis Esophageal dysmotility- Primary Dyskinesia of esophagus documented in this encounter Advance Directives Documents on File Type Date Recorded Patient Pharmacy Analyst Expl anation Power of Supply Chain Associate 06/28/2012 POWER OF A TTORNEY Latest Code [...] and were consensually agreed upon. Care Teams Dialysis Rn Relationship Specialty Start Date End Date Gregory Arreola DO [address] [address] PCP - General Family Medicine 01/24/20 documented as of this encounter
--- OUTSIDE RECORDS SUMMARY | 2024-02-07 07:33 | External Medical Summary | Summary of Care ---
Author Name Unknown Organization [facility] Address [address] [facility] [place] [address] Phone [phone] Care Team Providers Care Monomer Recovery Operator Name Role Phone Gregory Arreola DO Primary Care Provider Encounter Details Date Type Department Care Team (Late st Contact Info) Description 08/24/2023 Telephone Pulmonary Medicine, [facility] [address] [place] [address] Caroline Maria CRNP [address] [place] [address] Allergies Active Allergy Reactions Criticality Noted Date Comments Cat Dander Allergy test positive Medium 10/15/2011 Dust Allergy test positive Medium 10/15/2011 Penicillins 10/09/1997 rash Ragweed Allergy test positive Medium 10/15/2011 Shellfish 09/02/2006 hives documented as of this encounter (statuses as of 08/24/2023) Medications Medication Sig Dispensed Refills Start Date [...] as of this encounter (statuses as of 08/24/2023) Active Problems Problem Noted Date Diagnosed Date [...] as of this encounter (statuses as of 08/24/2023) Resolved Problems Problem Noted Date Diagnosed Date [...] as of this encounter (statuses as of 08/24/2023) Immunizations Name Administration Dates Next Due COVID-19 mRNA, LNP-s, No Pre serve, 2-Dose Series ([employer]) 01/17/2022,09/13/2021,07/19/2021,01/10,12/20/2020,2020 COVID-19, LNP-s, No Preserve , Melquiades-sucrose, [...] wear for now? Please call to advice. [phone] [place], documented in this encounter Plan of Treatment Upcoming Encounters Date Type Department Care Team (Late st Contact Info) Description 11/02/2023 1:00 PM EST Office Visit Family Practice [facility] [address] [address] Teodora Enriquez CRNP [address] [address] 11/18/2023 4:00 PM EST Office Visit Sleep Disorders [facility]tr [facility] [address] [phone] Caroline Maria CRNP [address] [address] 01/13/2024 12:20 PM EDT Office Visit Nutrition & Weight Management, [facility] [address] [place] [address] Teodora Dey PA-C [address] [place] [address] 05/23/2024 12:20 PM EDT Office Visit Family Practice [facility] [address] [place] [address] Gregory Arreola DO [address] [place] [address] Health Maintenance Due Date Last Done Comments [...] this encounter Medical Devices Implanted Type Area Sewing Machine Tester Device Identifier Shelf Expiration Date Model / Serial / Lot Lens Intraoc 27.5 - [id number] - [id number] Implanted:Qty: 1 on 07/07/2017 by Carlos Monterroso MD at OR [facility] Left: Eye BAUSCH & LOMB 10/18/2018 [id number] / [id number] / Lens Intraoc 27.5 - [id number] - [id number] Implanted:Qty: 1 on 07/16/2017 by Carlos Monterroso MD at OR [facility] Right: Eye BAUSCH & LOMB 07/18/2021 [id number] / [id number] / [id number] documented as of this encounter Advance Directives Documents on File Type Date Recorded 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 Care Teams Monomer Recovery Operator Relationship Specialty Start Date End Date Gregory Arreola DO [address] [address] PCP - General Family Medicine 01/24/20 documented as of this encounter
--- OUTSIDE RECORDS SUMMARY | 2024-02-07 07:33 | External Medical Summary | Summary of Care ---
Author Name Unknown Organization [facility] Address [address] [place] [address] Phone [phone] Care Team Providers Care Cutter Plastics Rolls Name Role Phone Gregory Arreola DO Primary [...] intake Teodora Enriquez CRNP [address] [place] [address] Referral ID Status Reason Start Date Expiration Date Visits Requested Visits Authorized [id number] Authorized Specialty Services Required [phone] Encounter Details Date Type Department Care Team (Latest Contact Info) Description 08/13/2023 8:40 AM EDT Office Visit Nutrition & Weight Management, [facility] [address] [place] [address] Adrianne Ball PA-C [address] [place] [address] Pharyngoesophageal dysphagia*; Esophageal dysmotility; Primary progressive aphasia [...] mRNA, LNP-s, No Pre serve, 2-Dose Series ([employer] [place]) 01/17/2022,09/13/2021,07/19/2021,01/10,12/20/2020,2020 COVID-19, LNP-s, No Preserve , Melquiades-sucrose, [...] used to follow with speech therapy at [facility] when using a speech aid, but since [...] Lunch: salad, egg, parmeasean cheese, olive garden finnish dressing, avocados; and ramen noodles, 2-3 slices [...] by Ahsan Ahuja MD at [facility] EGD, FLEXIBLE, DIAGNOSTIC 04/02/2022 Abnormal esophageal motility / [facility] REMOVE CATARACT, INSERT LENS PROSTH Left 07/07/2017 left EXTRACAPSULAR CATARACT REMOVAL WITH INTRAOCULAR LENS performed by Carlos Monterroso MD at OR [facility] REMOVE CATARACT, INSERT LENS PROSTH Right 07/16/2017 right EXTRACAPSULAR CATARACT REMOVAL WITH INTRAOCULAR LENS performed by Carlos Monterroso MD at OR [facility] REPAIR INITIAL INGUINAL HERNIA REDUCIBLE AGE [...] (Primary) - FLUORO ESOPHAGRAM ENTIRE - SPEECH THERAPY,HOME,MAIL LIST LIBRARIAN Esophageal dysmotility Primary progressive aphasia (HCC) Dementia [...] the patient or family. Adrianne Ball PA-C [facility] for Nutrition and Weight Management I performed [...] a discussion about the goals of care prison should precede any PEG tube placement as this is unlikely to improve quality of life nor change progression of advanced neurologic pathology. Joy Mendoza DO Associate Physician Nutrition and Weight Management Department [...] Ground meats. ' documented in this encounter Plan of Treatment Upcoming Encounters Date Type Department Care Team (Late st Contact Info) Description 11/02/2023 1:00 PM EST Office Visit Family [facility] [address] [address] Teodora Enriquez CRNP [address] [address] 11/18/2023 4:00 PM EST Office Visit Sleep Disorders Ctr [facility] [address] [place] [phone] Caroline Maria CRNP [address] [place] [address] 01/13/2024 12:20 PM EDT Office Visit Nutrition & Weight Management, [facility] [address] [place] [address] Teodora Dey PA-C [address] [place] [address] 05/23/2024 12:20 PM EDT Office Visit Family Practice [facility] [address] [place] [address] Gregory Arreola DO [address] [place] [address] Scheduled Orders Name Type Priority Associated Diagnoses Orde r Schedule FLUORO ESOPHAGRAM ENTIRE Medical Imaging Routine Pharyngoesophageal dysphagia Ordered: 08/13/2023 SPEECH THERAPY,HOME,MAIL LIST LIBRARIAN Procedures Routine Pharyngoesophageal dysphagia Ordered: 08/13/2023 Health [...] this encounter Medical Devices Implanted Type Area Visual Merchandising Coordinator Device Identifier Shelf Expiration Date Model / Serial / Lot Lens Intraoc 27.5 - [id number] - [id number] Implanted:Qty: 1 on 07/07/2017 by Carlos Monterroso MD at OR [facility] Left: Eye BAUSCH & LOMB 10/18/2018 [id number] / [id number] / Lens Intraoc 27.5 - [id number] - [id number] Implanted:Qty: 1 on 07/16/2017 by Carlos Monterroso MD at OR [facility] Right: Eye BAUSCH & LOMB 07/18/2021 [id number] / [id number] / [id number] documented as of this encounter Visit Diagnoses Diagnosis Pharyngoesophageal dysphagia- Primary Dysphagia, pharyngoesophageal phase Esophageal dysmotility Dyskinesia of esophagus Primary progressive aphasia (HCC) Aphasia Dementia without behavioral disturbance (HCC) Dementia, unspecified, without behavioral disturbance documented in this encounter Advance Directives Documents on File Type Date Recorded Patient Church Business Administrator Expl anation Power of Bull Driver 06/28/2012 POWER OF A TTORNEY Latest Code [...] and were consensually agreed upon. Care Teams Cutter Plastics Rolls Relationship Specialty Start Date End Date Gregory Arreola DO [address] [address] PCP - General Family Medicine 01/24/20 documented as of this encounter
--- OUTSIDE RECORDS SUMMARY | 2024-02-07 07:33 | External Medical Summary | Summary of Care ---
Author Name Unknown Organization [facility] Address [address] [place] [address] Phone [phone] Care Team Providers Care Furniture Sales Consultant Name Role Phone Gregory Arreola DO Primary Care Provider Encounter Details Date Type Department Care Team (Late st Contact Info) Description 08/13/2023 Telephone Nutrition & Weight Management, [facility] [address] [place] [address] Adrianne Ball PA-C [address] [place] [address] Allergies Active Allergy Reactions Criticality Noted Date Comments Cat Dander Allergy test positive Medium 10/15/2011 Dust Allergy test positive Medium 10/15/2011 Penicillins 10/09/1997 rash Ragweed Allergy test positive Medium 10/15/2011 Shellfish 09/02/2006 hives documented as of this encounter (statuses as of 08/14/2023) Medications Medication Sig Dispensed Refills Start Date [...] as of this encounter (statuses as of 08/14/2023) Active Problems Problem Noted Date Diagnosed Date [...] as of this encounter (statuses as of 08/14/2023) Resolved Problems Problem Noted Date Diagnosed Date [...] as of this encounter (statuses as of 08/14/2023) Immunizations Name Administration Dates Next Due COVID-19 mRNA, LNP-s, No Pre serve, 2-Dose Series ([employer]) 01/17/2022,09/13/2021,07/19/2021,01/10,12/20/2020,2020 COVID-19, LNP-s, No Preserve , Melquiades-sucrose, [...] to call back. * Telephone Encounter - Adrianne Ball PA-C - 08/13/2023 11:46 AM EDT I changed the order to video swallow. We are concerned about aspiration. He has home health. Does it need a different order for home speech therapy? * Telephone Encounter - Jasmin Hubbard LPN - 08/13/2023 11:36 AM EDT [place] calling. Stating they are questioning the order. 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 They do not do the the [...] Description 11/02/2023 1:00 PM EST Office Visit [facility] [address] [address] Teodora Enriquez CRNP [address] [address] 11/18/2023 4:00 PM EST Office Visit Sleep Disorders Ctr [facility] [address] [phone] Caroline Maria CRNP [address] [place] [address] 01/13/2024 12:20 PM EDT Office Visit Nutrition & Weight Management, [facility] [address] [address] Teodora Dey PA-C [address] [address] 05/23/2024 12:20 PM EDT Office Visit [facility] [address] [address] Gregory Arreola, [address] [address] Scheduled Orders Name Type Priority Associated Diagnoses [...] this encounter Medical Devices Implanted Type Area Bicycle Messenger Device Identifier Shelf Expiration Date Model / Serial / Lot Lens Intraoc 27.5 - [id number] - [id number] Implanted:Qty: 1 on 07/07/2017 by Carlos Monterroso MD at OR [facility] Left: Eye BAUSCH & LOMB 10/18/2018 [id number] / [id number] / Lens Intraoc 27.5 - [id number] - [id number] Implanted:Qty: 1 on 07/16/2017 by Carlos Monterroso MD at OR [facility] Right: Eye BAUSCH & LOMB 07/18/2021 [id number] / [id number] / [id number] documented as of this encounter Visit Diagnoses Diagnosis Esophageal dysmotility- Primary Dyskinesia of esophagus documented in this encounter Advance Directives Documents on File Type Date Recorded Patient Sand Plant Attendant Expl anation Power of Envelope Maker 06/28/2012 POWER OF A TTORNEY Latest [...] and were consensually agreed upon. Care Teams Furniture Sales Consultant Relationship Specialty Start Date End Date Gregory Arreola DO [address] [place] [address] PCP - General Family Medicine 01/24/20 documented as of this encounter
--- NOTE | 2024-02-07 08:04 | Emergency Department Note ---
History of Present Illness General Chief complaint: Tachycardia Stated complaint: INCREASED HEART RATE Time Seen by Provider: 02/07/24 07:44 Source: family, RN notes reviewed and old records reviewed (08/03/23-outpatient primary care office note for follow-up care for his dementia) Mode of arrival: ambulatory Limitations: no limitations History of Present Illness This patient is 68-year-old male who has baseline dementia and is nonverbal since 2018 comes in after his family is worried about tachycardia and dehydration. He has not been doing well for the last 3 to 4 weeks they were worried he was aspirated and they saw their doctor about 2 weeks ago and everything looked okay at the time over the last week he is got worse with eating he is lost about 5 pounds in the last couple weeks. They have been using boost and trying to feed him that way but he stopped eating yesterday. He urinated this morning and it was yellow and not dark no fall or trauma he is on no blood thinners. He does not act like anything hurts him he does not act like he is any respiratory distress except for sometimes after eating he does cough and they were worried about aspiration. His stool was somewhat slimy his says yesterday and loose but no blood or melena Home Medications Medication Instructions Recorded Confirmed Type atorvastatin 20 mg tablet 20 mg PO QAM 03/28/22 02/07/24 History cetirizine 10 mg tablet 10 mg PO QAM 03/28/22 02/07/24 History cholecalciferol (vitamin D3) 25 25 mcg PO QAM 03/28/22 02/07/24 History mcg (1,000 unit) tablet (Vitamin D3) diclofenac sodium 1 % topical gel 2 g topical BID PRN knee pain 03/28/22 02/07/24 History donepezil 5 mg tablet 5 mg PO HS 03/28/22 02/07/24 History fluticasone propionate 50 2 spray intranasal QAM 03/28/22 02/07/24 History mcg/actuation nasal spray,suspension losartan 50 mg tablet 50 mg PO QAM 03/28/22 02/07/24 History lutein 20 mg tablet 20 mg PO QAM 03/28/22 02/07/24 History metoprolol tartrate 25 mg tablet 12.5 mg PO BID 03/28/22 02/07/24 History multivitamin 1 tab PO QAM 03/28/22 02/07/24 History omega 8-ilk-nhs-fish oil 120 500 cap PO QAM 03/28/22 02/07/24 History mg-180 mg-500 mg capsule (Fish Oil) sertraline 50 mg tablet 50 mg PO QAM 03/28/22 02/07/24 History gentamicin 0.1 % topical ointment 1 applic topical DAILY #15 grams 08/24/23 02/07/24 Rx carbidopa 25 mg-levodopa 100 mg 1 tab PO QAM 02/07/24 02/07/24 History tablet propylene glycol 0.6 % eye drops 1 drp ophthalmic (eye) BID 02/07/24 02/07/24 History (Systane Balance) Allergies Allergy/AdvReac Type Severity Reaction Status Date / Time Penicillins Allergy Intermediate RASH Verified 02/07/24 08:32 shellfish derived Allergy Intermediate HIVES Verified 02/07/24 08:32 Past Med/Surg History Medical History Reflux esophagitis Primary progressive aphasia Prediabetes no meds Dysphagia Dementia Sleep apnea cpap GERD (gastroesophageal reflux disease) Anxiety Hyperlipemia HTN (hypertension) Surgical History History of left inguinal hernia repair History of bilateral cataract extraction History of colonoscopy last 09/2010 History of esophagogastroduodenoscopy (EGD) last 04/2012 @ [facility] Family History Other No family history of adverse response to anesthesia Social History Smoking Status: Never smoker Second Hand Exposure: No; Do You Dip or Chew Tobacco: No; Hx Alcohol Use: No Hx Substance Use: No Preferred Language: Indonesian Communication Ability: Impaired Communication Ability Comment: can not sign own consents--either or son will need to sign consents Grounds Maintenance Supervisor Required: No Beliefs That Will Affect Care: None Current Living Situation: Spouse Current Living Situation Comment: lives with , son, sister in law, nephew--has caregiver during day Feels Safe at Home: Yes Assistive Devices: CPAP and Glasses Review of Systems Unobtainable due to cognitive status Physical Exam Vital Signs Vital Signs - 24 hr 02/07/24 07:34 02/07/24 08:23 02/07/24 08:28 Temperature 36.6 C Temperature Source Temporal Artery Scan Pulse Rate 100 H Pulse Rate [Right Finger] 86 88 Respiratory Rate 16 19 22 Respiratory Effort / Characteristics Non-Labored Non-Labored Non-Labored Spontaneous Respiratory Depth Normal Normal Normal Respiratory Pattern Regular Blood Pressure 137/80 Blood Pressure [Right Arm] 145/82 H 145/82 H Blood Pressure Mean 99 Blood Pressure Mean [Right Arm] 103 103 Blood Pressure Position [Right Arm] Semi-fowlers Pulse Oximetry 97 98 99 Oxygen Delivery Method Room Air Room Air Room Air Sepsis Recent Fever Within 48 Hours No Sepsis New/Unexplained Change in Mental Status No Sepsis Action Taken by Nursing No Action Required 02/07/24 08:30 02/07/24 08:30 02/07/24 10:00 Temperature Temperature Source Pulse Rate Pulse Rate [Right Finger] 86 86 Respiratory Rate 18 18 Respiratory Effort / Characteristics Non-Labored Spontaneous Non-Labored Respiratory Depth Normal Normal Respiratory Pattern Regular Blood Pressure Blood Pressure [Right Arm] 129/74 146/76 H Blood Pressure Mean Blood Pressure Mean [Right Arm] 92 99 Blood Pressure Position [Right Arm] Semi-fowlers Pulse Oximetry 98 98 96 Oxygen Delivery Method Room Air Room Air Room Air Sepsis Recent Fever Within 48 Hours Sepsis New/Unexplained Change in Mental Status Sepsis Action Taken by Nursing General: Cachectic older male who is baseline nonverbal and appears in no acute distress, breathing comfortably on room air. HEENT: Normal cephalic atraumatic. Pupils are equal round and reactive to light. Extraocular movements are intact. Oropharynx is pink with moist mucous membranes. There are some mild redness to the left sclera without discharge. No swelling of the mouth lips or tongue. Neck: Supple with a midline trachea. No meningeal signs or stiffness, no JVD or bruits. No Stridor. Chest: Clear to auscultation bilaterally. No wheezes or rhonchi. No increased work of breathing. Heart: Regular rate and rhythm without murmurs or gallops. Abdomen: Soft nontender, nondistended without rebound guarding or rigidity. Extremities: No cyanosis clubbing or edema. No calf tenderness or assymetry Spine/Back. Non tender to palpation. No CVA tenderness Skin: Good turgor without rashes. Neurologic exam: He has baseline tremor which family says is unchanged she does seem to have tone and movement in all 4 extremities no facial asymmetry or droop Course Administered Medications Dextrose (D5w) 500 mls @ 80 mls/hr IV .Q6H15M FIDELIA Stop: 03/08/24 10:29 Last Admin: 02/07/24 12:02 Dose: 80 mls/hr Documented By: LMM Discontinued Medications Sodium Chloride (Nss) 1,000 mls @ 999 mls/hr IV .Q1H1M ONE Stop: 02/07/24 08:57 Last Infusion: 02/07/24 09:24 Dose: Infused Documented By: Admin: 02/07/24 08:23 Dose: 999 mls/hr Documented By: NRB Medical Decision Making Differential Diagnosis Dehydration, aspiration, tachycardia, sepsis, cardiac disease, anemia/GI bleed, electrolyte or metabolic abnormality, neurologic disease, pneumonia, pain Medical Records Attestation: I reviewed the patient's medical records. Home Medications Current Medication List: was personally reviewed by me Laboratory Data Attestation: I reviewed the patient's lab results. 02/07/24 08:18 02/07/24 08:18 Lab Results 02/07/24 02/07/24 Range/Units 08:18 10:19 WBC 9.20 (4.8-10.8) K/ul RBC 4.44 L (4.70-6.10) M/uL Hgb 13.2 L (14.0-18.0) g/dl Hct 42.2 (42.0-52.0) % MCV 95.0 (80.0-100.0) fL MCH 29.7 (25.0-34.0) pg MCHC 31.3 L (32.0-36.0) g/dL RDW Std Deviation 44.0 (36.4-46.3) fL RDW Coeff of Gisselle 12.7 (11.5-14.5) % Plt Count 218 (130-400) K/uL MPV 10.4 (9.4-12.4) fL Immature Gran % (Auto) 0.4 % Neut % (Auto) 74.5 % Lymph % (Auto) 15.5 % [place] % (Auto) 8.0 % Eos % (Auto) 0.9 % Baso % (Auto) 0.7 % Neut # (Auto) 6.85 H (1.40-6.50) K/uL Lymph # (Auto) 1.43 (1.20-3.40) K/uL [place] # (Auto) 0.74 H (0.11-0.59) K/uL Eos # (Auto) 0.08 (0.00-0.50) K/uL Baso # (Auto) 0.06 (0.00-0.20) K/uL Immature Gran # (Auto) 0.04 (0.01-0.20) K/uL Sodium 154 H (136-145) mmol/L Potassium 4.5 (3.5-5.1) mmol/L Chloride 120 H (98-107) mmol/L Carbon Dioxide 26 (21-32) mmol/L Anion Gap 8 (3-11) BUN 64 H (6-23) mg/dl Creatinine 1.90 H (0.6-1.4) mg/dl Est Cr Clr Drug Dosing 23.3 ml/min Est GFR ( Amer) 40.5 ml/min Est GFR (Non-Af Amer) 34.9 ml/min BUN/Creatinine Ratio 33.7 H (10-20) Glucose 107 H (70-99(Fasting)) mg/dl Lactate 1.6 (0.4-2.0) mmol/L Calcium 10.3 (8.6-10.3) mg/dl Magnesium 2.9 H (1.7-2.4) mg/dl Total Bilirubin 0.8 (0.2-1.0) mg/dl Direct Bilirubin 0.1 (0-0.2) mg/dl AST 30 (13-39) U/L ALT 18 (7-52) U/L Alkaline Phosphatase 56 (34-104) U/L Troponin I High Sens 57.0 H* 47.3 H (0-20) pg/ml Total Protein 8.5 H (6.0-8.3) gm/dl Albumin 4.4 (3.4-5.0) gm/dl Procalcitonin 0.08 (0-0.5) ng/ml Adenovirus (PCR) Not Detected (NotDetected) B. pertussis DNA (PCR) Not Detected (NotDetected) B.parapertussis DNA PCR Not Detected (NotDetected) C. pneumoniae DNA (PCR) Not Detected (NotDetected) Coronavirus OC43 (PCR) Not Detected (NotDetected) Coronavirus HKU1 (PCR) Not Detected (NotDetected) Coronavirus 229E (PCR) Not Detected (NotDetected) SARS-CoV-2 (PCR) Not Detected (NotDetected) Coronavirus NL63 (PCR) Not Detected (NotDetected) Human Metapneumovir PCR Not Detected (NotDetected) Influenza Type A (PCR) Not Detected (NotDetected) Influenza Type B (PCR) Not Detected (NotDetected) M. pneumoniae (PCR) Not Detected (NotDetected) Parainfluenza 1 (PCR) Not Detected (NotDetected) Parainfluenza 2 (PCR) Not Detected (NotDetected) Parainfluenza 3 (PCR) Not Detected (NotDetected) Parainfluenza 4 (PCR) Not Detected (NotDetected) RSV (PCR) Not Detected (NotDetected) Entero/Rhino (PCR) Not Detected (NotDetected) Imaging Data Attestation: I personally reviewed and interpreted this imaging study as follows: My Impression: Chest x-ray-no acute infiltrate, failure, pneumothorax seen. Radiologist's Impression: Chest X-Ray 02/07/24 07:57 XR chest 1V portable CLINICAL HISTORY: Sepsis COMPARISON STUDY: Chest CT February 02, 2015. Chest radiograph October 28, 2016. FINDINGS: Lung volumes are normal. Lungs are clear. There is no pneumothorax or pleural effusion. Cardiac size is normal. Mediastinal contours are normal. There is no evidence for pulmonary edema. IMPRESSION: No acute cardiopulmonary findings. ACT 112: Negative or not required by law. Electronically signed by: Jax Olmedo M.D. 02/07/2024 8:26 AM ECG Data Attestation: I personally reviewed and interpreted this ECG as follows: Indication: + chest pain Rate (beats per minute): 89 Rhythm: + normal sinus and + other (Poor baseline) ECG Intervals/blocks: + Normal QRS, + Normal QT and + Normal TX ECG [facility]: + Normal ECG ST segments: + Nonspecific ST abnormalities ECG Findings: no PACs or no PVCs Comparison ECG Date: from (10/28/16) Change: no significant change MDM Narrative This patient is 68-year-old male has a history of dementia comes in with weight loss, tachycardia and not eating as much is normal. His vitals look okay here he is not severely tachycardic. His differential will be broad as he is noncommunicative there is been no fall. Full sepsis type workup was done and he was placed on a harness tier EKG shows no definite ischemic changes or ectopy. He was hydrated with 1 L IV normal saline bolus. He was reassessed frequently. He has remained hemodynamically stable. His workup does not suggest sepsis/infection. His initial troponin is moderately elevated however the second 1 was slightly lower. His EKG does not suggest ischemic changes. His BUN and creatinine are elevated compared to baseline and I think this is most likely prerenal. His sodium is also elevated at 154. He has been hydrated with IV normal saline will will need further treatment and workup in the hospital. I have discussed the case with Dr. Del Valle in consultation he saw the patient in the ER and will admit/observe the patient for further inpatient treatment and evaluation. The patient's family is happy with this plan Continuous cardiac monitoring: Orders placed in EMR for continuous harness tier call upon my evaluation, he was noted to be in normal sinus rhythm with a rate of 95 Impression & Plan Acute dehydration, Weakness, Hypernatremia, Adult failure to thrive, Dementia Discharge Plan Visit Data Chief Complaint: Tachycardia Stated Complaint: INCREASED HEART RATE ED Provider: Anibal Mathew Discharge Problem: Acute dehydration, Weakness, Hypernatremia, Adult failure to thrive, Dementia Discharge Instructions Interventions: ED Discharge Assessment Last Done: 02/07/24 13:12 Discharge Problem: Dementia Qualifiers: Dementia type: unspecified type Dementia severity: unspecified severity D ementia behavioral or psychological symptom: unspecified whether behavioral, psychotic, or mood disturbance or anxiety Qualified Code(s): F03.90 - Unspecified dementia, unspecified severity, without behavioral disturbance, psychotic disturbance, mood disturbance, and anxiety
[2024-02-07] MEDS: SODIUM CHLORIDE 0.9% 1,000 ML IV ONE (08:23)
--- NOTE | 2024-02-07 08:28 | XRay Report ---
XR chest 1V portable CLINICAL HISTORY: Sepsis COMPARISON STUDY: Chest CT February 02, 2015. Chest radiograph October 28, 2016. FINDINGS: Lung volumes are normal. Lungs are clear. There is no pneumothorax or pleural effusion. Car diac size is normal. Mediastinal contours are normal. There is no evidence for pulmonary edema. IMPRESSION: No acute cardiopulmonary findings. ACT 112: Negative or not required by law. Electronically signed by: Jax Olmedo M.D. 02/07/2024 8:26 AM
[2024-02-07 08:43] LABS: Basophils # (auto) 0.06 K/uL (0.00-0.20); Basophils % (auto) 0.7 %; Eosinophils # (auto) 0.08 K/uL (0.00-0.50); Eosinophils % (auto) 0.9 %; Hematocrit (blood only) 42.2 % (42.0-52.0); Hemoglobin 13.2 g/dl (14.0-18.0); Immature Granulocytes # (auto) 0.04 K/uL (0.01-0.20); Immature Granulocytes % (auto) 0.4 %; Lymphocytes # (auto) 1.43 K/uL (1.20-3.40); Lymphocytes % (auto) 15.5 %; Mean Corpuscular Hemoglobin 29.7 pg (25.0-34.0); Mean Corpuscular Hgb Conc 31.3 g/dL (32.0-36.0); Mean Platelet Volume 10.4 fL (9.4-12.4); Monocytes # (auto) 0.74 K/uL (0.11-0.59); Neutrophils # (auto) 6.85 K/uL (1.40-6.50); Neutrophils % (auto) 74.5 %; Platelet Count 218 K/uL (130-400); RDW Coefficient of Variation 12.7 % (11.5-14.5); Red Blood Count 4.44 M/uL (4.70-6.10)
[2024-02-07 08:51] LABS: Albumin Level 4.4 gm/dl (3.4-5.0); BUN Creatinine Ratio 33.7 (10-20); Bilirubin Direct 0.1 mg/dl (0-0.2); Bilirubin,Total 0.8 mg/dl (0.2-1.0); Calcium 10.3 mg/dl (8.6-10.3); Creatinine Clr Calc Pharmacy 23.3 ml/min; Est GFR (African American) 40.5 ml/min; Est GFR (Non-African American) 34.9 ml/min; Magnesium 2.9 mg/dl (1.7-2.4); Potassium 4.5 mmol/L (3.5-5.1); Total Protein 8.5 gm/dl (6.0-8.3)
[2024-02-07 09:29] LABS: Adenovirus PCR Not Detected (NotDetected); Bordetella parapertussis PCR Not Detected (NotDetected); Bordetella pertussis PCR Not Detected (NotDetected); Chlamydia pneumoniae PCR Not Detected (NotDetected); Coronavirus 229E PCR Not Detected (NotDetected); Coronavirus CoV-2 (COVID19)PCR Not Detected (NotDetected); Coronavirus HKU1 PCR Not Detected (NotDetected); Coronavirus NL63 PCR Not Detected (NotDetected); Coronavirus OC43PCR Not Detected (NotDetected); Human Metapneumovirus PCR Not Detected (NotDetected); Influenza A PCR Not Detected (NotDetected); Influenza B PCR Not Detected (NotDetected); Mycoplasma pneumoniae PCR Not Detected (NotDetected); Parainfluenza Virus 1 PCR Not Detected (NotDetected); Parainfluenza Virus 2 PCR Not Detected (NotDetected); Parainfluenza Virus 3 PCR Not Detected (NotDetected); Parainfluenza Virus 4 PCR Not Detected (NotDetected); Respiratory Syncytial VirusPCR Not Detected (NotDetected); Rhinovirus/Enterovirus PCR Not Detected (NotDetected)
--- NOTE | 2024-02-07 09:38 | Communication Note ---
Date of Service: February 07, 2024 History obtained from chart review and interview with the patient Patient has a history of primary progressive aphasia, dementia, parkinsonism, hypertension, hyperlipidemia was brought to the hospital Recently saw primary care doctor 2 weeks back; was brought due to increasing weakness, decreased appetite and mild shortness of breath. Was prescribed clindamycin for possible pneumonia. Chest x-ray at that time did not show any infiltrates Family history; GI disorder in father and mother Social history; past smoker; quit over 30 years ago. Last endoscopy in March 2022; abnormal esophageal motility was seen.
--- NOTE | 2024-02-07 10:38 | History & Physical Report ---
Date of Service February 07, 2024 Assessment & Plan (1) Hypernatremia: (2) Adult failure to thrive: (3) Acute kidney injury: (4) Demand ischemia: Plan Patient is a 68-year-old male with past medical history of primary progressive aphasia, dementia, parkinsonism, hypertension, hyperlipidemia was brought to the hospital for concern of dehydration. On presentation to the ED, is normotensive, afebrile and saturating well on room air. CBC reviewed; no leukocytosis. BMP reveals sodium of 154, BUN/creatinine of 64/1.9(baseline of 1.0 in July 2022). High sensitive troponin 57 pg/ml. EKG on admission personally reviewed normal sinus rhythm, no significant ST or T wave changes. Chest x-ray personally reviewedno pneumonia Respiratory Viral panel negative Suspect that his progressive dementia/dysphagia led to decreased free water intake leading to GUERRERO/hypernatremia. Will start D5 at 80 cc/h. Rate of fluid to be titrated based on response. Will follow-up on blood cultures; no indication for antibiotic at this time. Obtain swallow evaluation, nutrition evaluation. N.p.o. for now till swallow evaluation Palliative care consulted for goals of care conversation. Patient has a terminal progressive illness(dementia), he requires assistance for all of his ADLs; he will likely have recurrence of dehydration/hypernatremia. It will be beneficial to clarify further goals of care (regarding feeding tube, CODE STATUS and possible hospice referral). Patient's son was agreeable for the consultation. Chronic conditions; Hypertensionhold losartan. Continue metoprolol Hyperlipidemiacontinue Lipitor Dementiacontinue donepezil Parkinson'scontinue Sinemet DNR/DNI DVT prophylaxis heparin I discussed plan of care with his son ( Ceci Kinsey). He is family physician in [place].Phone number [phone] Time spent evaluating patient, direct bedside care, chart review, placing orders, interpretation of diagnostic studies, discussion with consultants, patient, and family members, as well as other required patient management activities is 75-minutes Please note the above document was generated using voice recognition software. It may contain grammatical, syntax or spelling errors. Any formal questions or concerns about the content, text or information contained within the body of this dictation should be directly addressed to the provider for clarification History of Present Illness Chief Complaint: Adult failure to thrive Primary Care Provider: Gregory Arreola DO History obtained from chart review and interview with the patient's son at the bedside Patient has a history of primary progressive aphasia, dementia, parkinsonism, hypertension, hyperlipidemia was brought to the hospital for concern of dehydration. He was noted to be tachycardic overnight by his family. Patient has not been eating well for last few weeks; recently his appetite has significantly decreased in past 2 to 3 days. Patient has history of dementia; is nonverbal at baseline, requires assistance for all ADLs, mostly bedbound. He also has history of dysphagia which has progressively gotten worsen in the last few weeks. He was recently seen primary care doctor 2 weeks back; was brought due to increasing weakness, decreased appetite and mild shortness of breath. Was prescribed clindamycin for possible pneumonia; did not take as chest x-ray at that time did not show any infiltrates. No reported history of fever, chills, shortness of breath or any discomfort noted. Patient lives with his family (with his and younger son). He has caregivers as needed. Family history; GI disorder in father and mother Social history; past smoker; quit over 30 years ago. Last endoscopy in March 2022; abnormal esophageal motility was seen. On presentation to the ED, is normotensive, afebrile and saturating well on room air. CBC reviewed; no leukocytosis. BMP reveals sodium of 154, BUN/creatinine of 64/1.9(baseline of 1.0 in July 2022). High sensitive troponin 57 pg/ml. EKG on admission showed normal sinus rhythm, no significant ST or T wave changes. Chest x-rayno pneumonia Allergies Allergy/AdvReac Type Severity Reaction Status Date / Time Penicillins Allergy Intermediate RASH Verified 02/07/24 08:32 shellfish derived Allergy Intermediate HIVES Verified 02/07/24 08:32 Home Medications Medication Instructions Recorded Confirmed Type atorvastatin 20 mg tablet 20 mg PO QAM 03/28/22 02/07/24 History cetirizine 10 mg tablet 10 mg PO QAM 03/28/22 02/07/24 History cholecalciferol (vitamin D3) 25 25 mcg PO QAM 03/28/22 02/07/24 History mcg (1,000 unit) tablet (Vitamin D3) diclofenac sodium 1 % topical gel 2 g topical BID PRN knee pain 03/28/22 02/07/24 History donepezil 5 mg tablet 5 mg PO HS 03/28/22 02/07/24 History fluticasone propionate 50 2 spray intranasal QAM 03/28/22 02/07/24 History mcg/actuation nasal spray,suspension losartan 50 mg tablet 50 mg PO QAM 03/28/22 02/07/24 History lutein 20 mg tablet 20 mg PO QAM 03/28/22 02/07/24 History metoprolol tartrate 25 mg tablet 12.5 mg PO BID 03/28/22 02/07/24 History multivitamin 1 tab PO QAM 03/28/22 02/07/24 History omega 2-spt-eix-fish oil 120 500 cap PO QAM 03/28/22 02/07/24 History mg-180 mg-500 mg capsule (Fish Oil) sertraline 50 mg tablet 50 mg PO QAM 03/28/22 02/07/24 History gentamicin 0.1 % topical ointment 1 applic topical DAILY #15 grams 08/24/23 02/07/24 Rx carbidopa 25 mg-levodopa 100 mg 1 tab PO QAM 02/07/24 02/07/24 History tablet propylene glycol 0.6 % eye drops 1 drp ophthalmic (eye) BID 02/07/24 02/07/24 History (Systane Balance) Past Med/Surg History Medical History Reflux esophagitis Primary progressive aphasia Prediabetes no meds Dysphagia Dementia Sleep apnea cpap GERD (gastroesophageal reflux disease) Anxiety Hyperlipemia HTN (hypertension) Surgical History History of left inguinal hernia repair History of bilateral cataract extraction History of colonoscopy last 09/2010 History of esophagogastroduodenoscopy (EGD) last 04/2012 @ [facility] Family History Other No family history of adverse response to anesthesia Social History Smoking Status: Never smoker Second Hand Exposure: No; Do You Dip or Chew Tobacco: No; Hx Alcohol Use: No Hx Substance Use: No Preferred Language: Divehi Communication Ability: Impaired Communication Ability Comment: can not sign own consents--either or son will need to sign consents Pipe Racker Required: No Beliefs That Will Affect Care: None Current Living Situation: Spouse Current Living Situation Comment: lives with , son, sister in law, nephew--has caregiver during day Feels Safe at Home: Yes Assistive Devices: CPAP and Glasses Review of Systems Review of Systems: Unobtainable due to cognitive status Physical Exam Physical Exam: Constitutional: Awake, nonverbal. Does not appear to be in any distress Respiratory: Bilateral vesicular breath sound Cardiovascular: RRR, no murmur, no edema Vessels: no JVD or carotid bruit Chest: normal inspection of chest Abdomen: Soft, nontender Musculoskeletal: no cyanosis or clubbing, extremities motor strength 5/5 Skin: no rashes, warm and dry normal turgor Neurologic: PERRL, EOMI, accommodation nl, no face palsy. He does not follow commands. Tremors noted on left hand Results & Data Results & Data Vital Signs (Past 12 Hours) Vital Signs Temp Pulse Pulse Resp BP BP Pulse Ox 02/07/24 08:30 98 02/07/24 08:30 86 18 129/74 98 02/07/24 08:28 88 22 145/82 H 99 02/07/24 08:23 86 19 145/82 H 98 02/07/24 07:34 36.6 C 100 H 16 137/80 97 O2 Del Method 02/07/24 08:30 Room Air 02/07/24 08:30 Room Air 02/07/24 08:28 Room Air 02/07/24 08:23 Room Air 02/07/24 07:34 Room Air Code Status & VTE Plan VTE Prophylaxis Plan VTE Prophylaxis will be ordered: Yes
--- NOTE | 2024-02-07 11:39 | Ultrasound Report ---
RENAL ULTRASOUND CLINICAL HISTORY: Acute kidney injury. COMPARISON STUDY: None. TECHNIQUE: Sonography of the kidneys and the urinary bladder was performed. FINDINGS: The right kidney measures 8.7 cm in maximal dimension and the left measures 9.9 cm. Kidneys are mildly echogenic. There is no hydronephrosis. Both ureteral jets were identified. There is bladd er wall thickening. No renal calculi or masses are identified. Renal cortical thickness and size are normal. IMPRESSION: 1. No hydronephrosis. 2. Mild nonspecific bladder wall thickening. 3. Mild increased renal echogenicity. ACT 112: Negative or not required by law. Electronically signed by: Jax Olmedo M.D. 02/07/2024 11:38 AM
[2024-02-07] MEDS: DEXTROSE 5% 500 ML IV SCH (12:02)
[2024-02-07] MEDS ORDERED: POLYETHYLENE (MIRALAX) 17 GM PACK PO PRN (13:12)
[2024-02-07] MEDS ORDERED: ALUMINUM/MAGNESIUM SUSP 30 ML UDC PO PRN (13:12)
[2024-02-07] MEDS ORDERED: ACETAMINOPHEN 325 MG TAB PO PRN (13:12)
[2024-02-07 16:41] LABS: BUN Creatinine Ratio 35.7 (10-20); Calcium 9.3 mg/dl (8.6-10.3); Est GFR (African American) 57.1 ml/min; Est GFR (Non-African American) 49.3 ml/min; Potassium 4.1 mmol/L (3.5-5.1)
[2024-02-07] MEDS: HEPARIN SOD 5,000 UNIT/0.5 ML VIAL SQ SCH (19:18)
[2024-02-07] MEDS: METOPROLOL TARTRATE 25 MG TAB PO SCH (19:18)
[2024-02-07] MEDS: DONEPEZIL HCL 5 MG TAB PO SCH (19:18)
[2024-02-07] MEDS ORDERED: NON-FORMULARY MEDICATION (Propylene Glycol [Systane Balance] 0.6 % Drops) OP SCH (21:00)
[2024-02-08] MEDS: METOPROLOL TARTRATE 1 MG/ML VIAL IV STA (00:22)
[2024-02-08] MEDS: LORazepam 0.25 MG in SYRINGE 0.125 ML IV STA (00:32)
[2024-02-08] MEDS ORDERED: ACETAMINOPHEN 1,000 MG/100 ML VIAL IV PRN (04:26)
[2024-02-08] MEDS: METOPROLOL TARTRATE 1 MG/ML VIAL IV SCH (04:42)
[2024-02-08] MEDS: ACETAMINOPHEN 1000 MG/100 ML IV IV ONE (04:42)
[2024-02-08 05:17] LABS: Appearance Urine Turbid (Clear); Bacteria Urine Automated 4+ (None Seen); Bilirubin Urine Negative (Negative); Blood Urine 2+ (Negative); Color Urine Yellow; Epithelial Cell Urine Auto 0-2 /hpf (0-2); Glucose Urine UA Negative (Negative); Ketones Urine Negative (Negative); Leukocyte Esterase Urine 3+ (Negative); Nitrite Urine Positive (Negative); Protein Urine 1+ (Negative); Urobilinogen Urine Negative (Negative); WBC Urine Automated >50 /hpf (0-5); pH Urine 5.5 (4.5-7.5)
--- NOTE | 2024-02-08 05:57 | Electrocardiogram Report ---
Test Reason : Blood Pressure : / mmHG Vent. Rate : 089 BPM Atrial Rate : 089 BPM P-R Int : 126 ms QRS Dur : 068 ms QT Int : 342 ms P-R-T Axes : 096 066 028 degrees QTc Int : 416 ms Poor data quality, interpretation may be adversely affected Normal sinus rhythm Probably normal When compared with ECG of 28-OCT-2016 14:39, Vent. rate has increased BY 33 BPM Early repolarization is no longer Present Confirmed by Saman Norris ([id number]) on 02/08/2024 5:57:26 AM Referred By: Confirmed By:Saman Norris
[2024-02-08 06:50] LABS: Basophils # (auto) 0.03 K/uL (0.00-0.20); Basophils % (auto) 0.2 %; Eosinophils # (auto) 0.01 K/uL (0.00-0.50); Eosinophils % (auto) 0.1 %; Hematocrit (blood only) 33.8 % (42.0-52.0); Immature Granulocytes # (auto) 0.04 K/uL (0.01-0.20); Immature Granulocytes % (auto) 0.3 %; Lymphocytes # (auto) 1.06 K/uL (1.20-3.40); Lymphocytes % (auto) 8.6 %; Mean Corpuscular Hemoglobin 30.5 pg (25.0-34.0); Mean Corpuscular Hgb Conc 32.5 g/dL (32.0-36.0); Mean Corpuscular Volume 93.6 fL (80.0-100.0); Mean Platelet Volume 10.9 fL (9.4-12.4); Monocytes # (auto) 0.92 K/uL (0.11-0.59); Monocytes % (auto) 7.4 %; Neutrophils # (auto) 10.31 K/uL (1.40-6.50); Neutrophils % (auto) 83.4 %; Platelet Count 174 K/uL (130-400); RDW Coefficient of Variation 12.6 % (11.5-14.5); RDW Standard Deviation 43.7 fL (36.4-46.3); Red Blood Count 3.61 M/uL (4.70-6.10); White Blood Count 12.37 K/ul (4.8-10.8)
[2024-02-08 07:25] LABS: BUN Creatinine Ratio 27.3 (10-20); Calcium 9.2 mg/dl (8.6-10.3); Est GFR (African American) 57.1 ml/min; Est GFR (Non-African American) 49.3 ml/min; Magnesium 2.2 mg/dl (1.7-2.4)
[2024-02-08] MEDS ORDERED: NON-FORMULARY MEDICATION (Lutein 20 mg Tablet) PO SCH (09:00)
[2024-02-08] MEDS: CARBIDOPA/LEVODOPA 25/100MG TAB PO SCH (10:02)
[2024-02-08] MEDS: ATORVASTATIN 20 MG TAB PO SCH (10:02)
[2024-02-08] MEDS: CETIRIZINE HCL 10 MG TABLET PO SCH (10:03)
[2024-02-08] MEDS: CHOLECALCIFEROL 25 MCG (1000 UNITS) TAB PO SCH (10:03)
[2024-02-08] MEDS: SERTRALINE HCL 50 MG TABLET PO SCH (10:04)
[2024-02-08] MEDS: OMEGA-3 (PURIFIED FISH OIL) 1 GM CAP PO SCH (10:04)
[2024-02-08] MEDS: MULTIVITAMIN TAB PO SCH (10:04)
[2024-02-08] MEDS: cefTRIAXone SODIUM 1,000 MG in DEXTROSE 5 % MINI-B 50 ML IV SCH (10:12)
--- NOTE | 2024-02-08 11:07 | Hospitalist Progress Note ---
Date of Service February 08, 2024 Assessment & Plan (1) Hypernatremia: (2) Adult failure to thrive: (3) Acute kidney injury: (4) Demand ischemia: Plan Patient is a 68-year-old male with past medical history of primary progressive aphasia, dementia, parkinsonism, hypertension, hyperlipidemia was brought to the hospital for concern of dehydration. On presentation to the ED, is normotensive, afebrile and saturating well on room air. CBC minimal leukocytosis, BMP with hypernatremia sodium of 154, and GUERRERO creatinine of 1.9 Hypernatremia-due to dehydration/decreased fluid intake-sodium improving on D5W. 154->148. Will recheck later today. GUERRERO-prerenal due to dehydration. Creatinine improving from 1.9 on admission to 1.4. Continue IVF. Recheck in AM. Abnormal UA suggestive of UTI-on empiric ceftriaxone pending final culture results. Mild leukocytosis noted Progressive dementia/dysphagia-n.p.o. for now. 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 Palliative consulted for goals of care discussion HypertensionBP stable off of home losartan. Continue metoprolol. Hyperlipidemiacontinue Lipitor Dementiacontinue donepezil Parkinson'scontinue Sinemet DVT prophylaxis- sc heparin Disposition- TBD. continue current level of care. Continue IVF. Palliative evaluation pending. Updated family at bedside. Time spent-approximately 35 minutes Admission and Anticipated Discharge Date Admission Date: February 07, 2024 Subjective Patient was seen and examined at bedside in presence of family. He remains lethargic, not responding to verbal stimuli. Not in any distress and on room air. No fever, shortness of breath.. Review of Systems Review of Systems: Unobtainable due to reduced consciousness Physical Exam Physical Exam: General: Lying comfortably in bed, not in acute distress, on room air Chest: Clear breath sounds bilaterally, no wheezes or crackles CVS: Regular rate and rhythm, normal heart sounds, no murmur Abdomen: Soft, non tender, not distended, normal bowel sounds Neuro: Awake, nonverbal, not following commands Extremities: No edema Results & Data Results & Data Vital Signs (Past 12 Hours) Vital Signs Temp Pulse Pulse Resp BP BP Pulse Ox 02/08/24 07:42 36.6 C 70 16 115/64 98 02/08/24 05:47 37.7 C H 02/08/24 04:51 82 133/58 L 02/08/24 04:15 38.8 C H 102 H 20 148/74 H 94 02/08/24 00:34 87 141/68 H 02/08/24 00:28 88 152/68 H 02/07/24 23:25 37.2 C 117 H 18 182/77 H 99 O2 Del Method 02/08/24 07:42 Room Air, CPAP 02/08/24 05:47 02/08/24 04:51 02/08/24 04:15 Room Air, CPAP 02/08/24 00:34 02/08/24 00:28 02/07/24 23:25 Room Air, CPAP Laboratory Results Short CBC 02/08/24 Range/Units 05:25 WBC 12.37 H (4.8-10.8) K/ul Hgb 11.0 L (14.0-18.0) g/dl Hct 33.8 L (42.0-52.0) % Plt Count 174 (130-400) K/uL BMP 02/07/24 02/08/24 16:11 05:25 Sodium 153 H 148 H Potassium 4.1 4.0 Chloride 123 H 117 H Carbon Dioxide 26 23 BUN 51 H 39 H Creatinine 1.43 H D 1.43 H Glucose 114 H 125 H Calcium 9.3 9.2 Urine 02/07/24 Range/Units 04:30 Urine Color Yellow Urine Appearance Turbid A (Clear) Urine pH 5.5 (4.5-7.5) Ur Specific [place] 1.020 (1.000-1.030) Urine Protein 1+ H (Negative) Urine Glucose (UA) Negative (Negative)
[2024-02-08] MEDS ORDERED: hydrALAZINE HCL 20 MG/ML VIAL IV PRN (13:32)
[2024-02-08] MEDS: ACETAMINOPHEN 10MG/ML Custom 650 MG in EMPTY BAG 0 ML IV PRN (14:47)
[2024-02-08 15:28] LABS: BUN Creatinine Ratio 24.2 (10-20); Calcium 8.8 mg/dl (8.6-10.3); Creatinine Clr Calc Pharmacy 33.6 ml/min; Est GFR (African American) 62.9 ml/min; Est GFR (Non-African American) 54.3 ml/min; Potassium 3.8 mmol/L (3.5-5.1)
[2024-02-08] MEDS: D5W AND 1/2NSS 1,000 ML IV SCH (15:46)
[2024-02-08] MEDS: CEFEPIME 2,000 MG in SYRINGE 0 ML IV SCH (16:53)
--- NOTE | 2024-02-08 19:26 | Palliative Care Consultation ---
Date of Consultation February 08, 2024 Assessment & Plan (1) Weakness generalized: (2) Myoclonus: (3) Frontotemporal dementia: (4) Discussion about advance care planning held with family member: A very detailed and extensive 60min face to face ACP meeting with pt's Lakisha, son Kristopher and son Ceci who is a physician in [place] joining by Sarikaijeoma Bingham and his Lakisha are from [facility] by . 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 She is a corporate tax manager at [employer] where she has worked for over 23 years. Ceci is a family med physician and Kristopher is completing his Masters and applying to med school which he has placed on hold due to pt illness. Patient has been declining steadily for past few years, more dramatically over past one year and very sharp decline this past month with worsening aspiration events, little to no PO intake. They have a private caregiver who comes daily for 7-8 hours, allowing family to work during the day. They care for all his needs the rest of the time. We reviewed the following facts about dementia: * Dementia is a terminal illness. Aggressive medical treatment for residents with advanced dementia is often inappropriate for medical reasons, has a low rate of success, and can have negative outcomes that hasten functional decline and . ([place] Ger[employer]s Society Ethics Committee and Clinical Practice and Models of Care Committee. J Am Geriatr Soc. 2014 Aug;62(8):1590-3 and Primitivo SL, Salo JM, Norman SC, Alexi V. A national study of the location of for older persons with dementia. J Am Geriatr Soc 2005; 53(2):299-305 .) * Tube feeding in residents with advanced dementia does not increase survival. It does not prevent aspiration pneumonia, malnutrition or pressure ulcers. It does not reduce the risk of infections or improve functional status or comfort of the patient. (from: Kiet LEON, Shiela T Percutaneous endoscopic gastrostomy does not prolong survival in patients with dementia. Arch Content Coordinator Med 2003; 163(11):4018-3722 AND Ivone DE, Lindy JESSE, Gregorio Chan, Dru S, Den RS. High short-term mortality in hospitalized patients with advanced dementia - Lack of benefit of tube feeding. Arch Content Coordinator Med 2001; 161(4):594- 599.) * Simple strategies involving hands-on care by well-trained staff such as massage, oral hygiene, changes in diet, and hand-feeding -- can prevent infection and manage feeding problems without resort to tube-feeding. * Tube feeding does not prevent aspiration pneumonia and might actually increase its incidence, and does not prevent the consequences of malnutrition * Hand feeding can be provided until the beginning of the dying process when all physiological processes shut down, note that cognitively intact cancer patients indicate that dying residents do not feel hunger and thirst. * Voluntary refusal of food and liquids is often initiated by hospice patients and does not result in discomfort * The majority of older Americans whose underlying cause of is attributable to dementia on their certificate in nursing homes. State-level factors, including the availability of hospital and care home beds and the age of decedents in the population, explain, in part, the wide [id number] variability in the proportion of dementia-related deaths occurring in the hospital. * Older adults with dementia frequently receive acute care in their last year of life although Hospice care was more common for home/[facility] residents. Overall time in hospice remains short due to the underutilization of the hospice benefit for terminal dementia (Braulio MM, Neva JM, Guadarrama KM, Thomas DE, Candace PY. Dementia Care in the Last Year of Life: Experiences in a Community Practice and in Group Home Facilities. J Palliat Care. 2022;38( 2):135-142. doi:10.1177/[id number]) * Home Hospice is a valuable option for terminal dementia who desire to have peaceful EOL at home. Home hospice care for advanced dementia can improve symptom management and caregiver satisfaction, while decreasing caregiver burden, preventing hospitalizations and discontinuing unnecessary medications (Salvador GREENBERG, Bc R, Philip G, et al. Home hospice for older people with advanced dementia: a bar pilot project [published correction appears in Isr J Health Policy Res. 2019 Apr 18;8(1):56]. Isr J Health Policy Res. 2019;8(1):42. Published 2018February 21. doi:10.1186/x83729-516-0310-u) * If the plan if for SNF placement, I recommend hospice at SNF: Hospice is a valuable service for persons with advanced dementia, particularly in management of pain, continuous involvement of the primary physician, and avoidance of hospitalization. Social support provided to caregivers is also important given their high levels of depressive symptoms and anxiety. The goal of care for residents with advanced dementia is primarily maintenance of function and patient should not be transferred to an acute care setting because hospitalization results in decline of functional abilities that do not recover after discharge back into care home. If this is desired, then Care Mgt follow up is needed to determine if pt is eligible for hospice at SNF/deferred to CM and primary team. * Multiple organizations, including the [place] Academy of Hospice and Palliative Medicine and the [place] Geriatrics Society, have released statements endorsing the following approach to nutritional support in advanced dementia: Dont recommend percutaneous feeding tubes in patients with advanced dementia; instead, offer oral assisted feeding. * We discussed the goals of hospice as a patient service and the goals of care; we discussed EOL trajectories and transitions mónica the emotional impact of realizing mortality as a concrete reality from prior abstract considerations. Pt was reassured that no matter where they are along this trajectory, they are not alone - their medical team will remain by their side through their gonzalez urney. Discussed the pros/cons of accepting help when especially weakened and distressed by pain-which would also help provide relief/decrease caregiver burden/strain. * I provided education about the hospice benefit: an interdisciplinary program offered by nurses, nurses aides, social workers, chaplains and a medical staff services manager for patients with a terminal condition and a life expectancy of less than 6 months. This is covered by Medicare at 100%/no out of pocket expense to patient and all meds/supplies needed by patient for the reason they are on hospice are paid for/covered by hospice. The goal is assure quality of life of the patient in their home setting (home, care home, inpatient hospice setting) by providing symptoms management, psychosocial and spiritual support. However, they cannot offer 24 hours care and if the family is unable to provide that care, they will have to consider personal care with out of pocket cost vs. care home placement. We discussed the goals of hospice as a patient service and the goals of care; we discussed EOL trajectories and transitions mónica the emotional impact of realizing mortality as a concrete reality from prior abstract considerations. Pt was reassured that no matter where they are along this trajectory, they are not alone - their medical team will remain by their side through their journey. Discussed the pros/cons of accepting help when especially weakened and distressed by pain-which would also help provide relief/decrease caregiver burden/strain. * Lakisha and Kristopher are leaning toward home with hospice after this acute admission is treated. There is some reservation from Ceci who notes Lakisha was not agreeable to hospice during a recent family discussion they had a few days ago. She replied that she now better understands what hospice would entail and how they will provide caregiver support. She is clear in her desire to keep pt at home and continue being his caregiver. She is already looking into hiring a second private caregiver to extend daily hours of coverage to allow some breaks for her and Kristopher. Kristopher produced patient's Advance directive, which very clearly delineates desire for comfort driven care with no aggressive measures, no CPR, no surgery, no HD, no SHENG, no chemo etc. His Lakisha is SDM and his AD stipulates his SDM should abide by his wishes and no override them. This has been copied and sent for scanning. Ceci said there may be a role for SHENG at this time. I reviewed the AD and specifically read the directions re SHENG. We discussed pt completed his AD in 2011 when he had no problems with his cognition. He very thoughtfully considered his options and made selections aligning with his wishes, preferences and goals. in agreement, adding she did not feel she could in good janet override his wishes mónica now that his dementia is reaching later/terminal stages. (5) Palliative care by specialist: Met with family. Provided overview of Palliative Medicine, a subspecialty that provides specialized medical care for people living with a serious illness by offering a focus on quality of life. Palliative Medicine is often conflated with hospice: I advised patient/family that Palliative and hospice can be partners but we are not the same. It is important to understand the difference so that we may be informed, and not afraid. Palliative Medicine works to improve QOL through reduction of symptom burden/more control over their illness, for both the patient and family. Palliative medicine clinicians are board certified, specially-trained and another member of the patient's medical care team. We often provide an extra layer of support because our care is based on the needs of the patient, not the prognosis; as such, it's appropriate at any age/advancing stage of a serious illness and can be provided along with curative treatment. Palliative Medicine clinicians are also trained in advanced communication methodologies, to facilitate complex discussions about advanced illness planning, which are needed to help assure that the treatment choices match the patient's goals, aka delivering Goal Concordant care. Finally, we discussed that hospice is a visiting nurse service that focuses on care delivered at the very end of life for patients with terminal illness, with life expectancy less than 6 month. Plan * Continue tx for UTI * Kristopher and Ceci asking for imaging to rule out stroke, I have shared this with primary team. * Likely home with hospice when ready for dc, they are going to speak about this more as a family tonight and connect with friends/community to get reccs for hospice agency. Thank you for allowing us to participate in the ongoing care of this patient. Please don't hesitate to call or page with any additional concerns. Dr. Candace Denis DNP Director, Palliative Care History of Present Illness Reason for Consultation: goc, dementia, family requesting Attending Physician: Steven Clement MD History of Present Illness 68 yo gentleman with frontotemporal dementia worsening since 2018 when he became non verbal. Initial diagnosis a few years prior. 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 Pt is seen with his Lakisha and son Kristopher. He is not verbal He is intermittently opening eyes but cannot follow commands, blink on request or signal an affirmative answer. He has not acute resp distress He is resting in bed, glasses in place Allergies Allergy/AdvReac Type Severity Reaction Status Date / Time Penicillins Allergy Intermediate RASH Verified 02/07/24 08:32 shellfish derived Allergy Intermediate HIVES Verified 02/07/24 08:32 Home Medications Medication Instructions Recorded Confirmed Type atorvastatin 20 mg tablet 20 mg PO QAM 03/28/22 02/07/24 History cetirizine 10 mg tablet 10 mg PO QAM 03/28/22 02/07/24 History cholecalciferol (vitamin D3) 25 25 mcg PO QAM 03/28/22 02/07/24 History mcg (1,000 unit) tablet (Vitamin D3) diclofenac sodium 1 % topical gel 2 g topical BID PRN knee pain 03/28/22 02/07/24 History donepezil 5 mg tablet 5 mg PO HS 03/28/22 02/07/24 History fluticasone propionate 50 2 spray intranasal QAM 03/28/22 02/07/24 History mcg/actuation nasal spray,suspension losartan 50 mg tablet 50 mg PO QAM 03/28/22 02/07/24 History lutein 20 mg tablet 20 mg PO QAM 03/28/22 02/07/24 History metoprolol tartrate 25 mg tablet 12.5 mg PO BID 03/28/22 02/07/24 History multivitamin 1 tab PO QAM 03/28/22 02/07/24 History omega 8-bbe-hnu-fish oil 120 500 cap PO QAM 03/28/22 02/07/24 History mg-180 mg-500 mg capsule (Fish Oil) sertraline 50 mg tablet 50 mg PO QAM 03/28/22 02/07/24 History gentamicin 0.1 % topical ointment 1 applic topical DAILY #15 grams 08/24/2301/18 Rx carbidopa 25 mg-levodopa 100 mg 1 tab PO QAM 02/07/24 02/07/24 History tablet propylene glycol 0.6 % eye drops 1 drp ophthalmic (eye) BID 02/07/24 02/07/24 History (Systane Balance) Patient History Medical History (Updated 02/08/24 @ 19:38 by Candace Denis DNP) Palliative care by specialist Discussion about advance care planning held with family member Frontotemporal dementia Myoclonus Weakness generalized Reflux esophagitis Primary progressive aphasia Prediabetes no meds Dysphagia Dementia Sleep apnea cpap GERD (gastroesophageal reflux disease) Anxiety Hyperlipemia HTN (hypertension) Surgical History History of left inguinal hernia repair History of bilateral cataract extraction History of colonoscopy last 09/2010 History of esophagogastroduodenoscopy (EGD) last 04/2012 @ [facility] Family History Other No family history of adverse response to anesthesia Social History Smoking Status: Never smoker Second Hand Exposure: No; Do You Dip or Chew Tobacco: No; Hx Alcohol Use: No Hx Substance Use: No Preferred Language: Amharic Communication Ability: Unable Communication Ability Comment: can not sign own consents--either or son will need to sign consents 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 Current Living Situation: Spouse and Family Current Living Situation Comment: pt lives with his son and his . pt is nonverbal. Other Information That Helps Us Care for You: No Feels Safe at Home: Yes Safety Concerns: Feels Safe At This Time Assistive Devices: CPAP and Wheelchair Review of Systems Review of Systems: All systems reviewed & are unremarkable except as noted in Subjective Physical Exam Constitutional: + cachectic and + frail appearing Eyes: PERRL ENMT: Mouth: + dry oral mucous membranes Neck: trachea midline Respiratory: normal respiratory effort Auscultation: + diminished lung sounds Cardiovascular: Rate/Rhythm: regular rate and regular rhythm Gastrointestinal (Abdomen): Inspection/Auscultation: + scaphoid Percussion/Palpation: + guarding and abdomen soft Musculoskeletal: generalized weakness Skin: + turgor decreased, + skin tightening, + skin atrophy and + pallor Neurologic: non verbal Results & Data Vital Signs (Past 12 Hours) Vital Signs Temp Pulse Pulse Resp BP BP Pulse Ox 02/08/24 19:05 68 136/62 02/08/24 18:27 61 114/57 L 02/08/24 18:23 36.7 C 61 114/57 L 02/08/24 18:04 37.9 C H 72 16 102/59 L 97 02/08/24 15:53 38.6 C H 70 16 113/61 97 02/08/24 15:52 02/08/24 14:05 68 123/58 L 02/08/24 14:02 38.2 C H 68 16 123/58 L 96 02/08/24 13:58 69 02/08/24 12:02 37.9 C H 70 16 175/65 H 100 02/08/24 07:42 36.6 C 70 16 115/64 98 O2 Del Method 02/08/24 19:05 02/08/24 18:27 02/08/24 18:23 02/08/24 18:04 Room Air 02/08/24 15:53 Room Air 02/08/24 15:52 Room Air 02/08/24 14:05 02/08/24 14:02 Room Air 02/08/24 13:58 02/08/24 12:02 Room Air 02/08/24 07:42 Room Air, CPAP Laboratory Results Most recent lab results Calcium 8.8 mg/dl (8.6-10.3) 02/08/24 14:58 Magnesium 2.2 mg/dl (1.7-2.4) 02/08/24 05:25 Diagnostic Findings Chest X-Ray 02/07/24 07:57 XR chest 1V portable CLINICAL HISTORY: Sepsis COMPARISON STUDY: Chest CT February 02, 2015. Chest radiograph October 28, 2016. FINDINGS: Lung volumes are normal. Lungs are clear. There is no pneumothorax or pleural effusion. Cardiac size is normal. Mediastinal contours are normal. There is no evidence for pulmonary edema. IMPRESSION: No acute cardiopulmonary findings. ACT 112: Negative or not required by law. Electronically signed by: Jax Olmedo M.D. 02/07/2024 8:26 AM Renal Ultrasound 02/07/24 10:35 RENAL ULTRASOUND CLINICAL HISTORY: Acute kidney injury. COMPARISON STUDY: None. TECHNIQUE: Sonography of the kidneys and the urinary bladder was performed. FINDINGS: The right kidney measures 8.7 cm in maximal dimension and the left measures 9.9 cm. Kidneys are mildly echogenic. There is no hydronephrosis. Both ureteral jets were identified. There is bladder wall thickening. No renal calculi or masses are identified. Renal cortical thickness and size are normal. IMPRESSION: 1. No hydronephrosis. 2. Mild nonspecific bladder wall thickening. 3. Mild increased renal echogenicity. ACT 112: Negative or not required by law. Electronically signed by: Jax Olmedo M.D. 02/07/2024 11:38 AM PG Care Time/CCT Total # of Minutes Spent Total Time Spent with Patient: Total time spent is greater than 50% in coordination of care (as documented) at patient's floor/unit and/or counseling patient: I spent 120 minutes overall addressing this complex case: 15 min in medical data review/discussion with referring provi melody(s) and/or preparation for the visit 15 min in direct interaction with the patient/exam 60 min in Advance Care Planning/Goals of Care discussions as detailed above in note (must be >16min) 15 min in subsequent review and synthesis of assessment and plan 15 min communicating with other providers regarding the patient's case: nursing, primary Prolonged Care Time Prolonged Care Time: Yes Advanced Care Planning 37735 Advanced Care Planning 30 Min 44862 Advanced Care Planning Additional 30 [place] [address] IN/OBS CONSULT LVL 5,80M Patient Type New History Comprehensive Exam Comprehensive Medical Decision Making High Complexity Diagnoses Weakness generalized R53.1 Myoclonus G25.3 Frontotemporal dementia G31.09; F02.80 Discussion about advance care planning held with family member Z71.0 Palliative care by specialist Z51.5 Additional Codes Advanced Care Planning - 56955 Advanced Care Planning 30 Min: 67884 Advanced Care Planning 30 Min ([id number]) Advanced Care Planning - 56470 Advanced Care Planning Additional 30 Min: 80337 Advanced Care Planning Additional 30 Min ([id number]) Prolonged Care Time - Prolonged Care Time: Yes ([id number])
[2024-02-09 06:36] LABS: Hematocrit (blood only) 31.9 % (42.0-52.0); Hemoglobin 10.2 g/dl (14.0-18.0); Mean Corpuscular Hemoglobin 30.4 pg (25.0-34.0); Mean Corpuscular Volume 94.9 fL (80.0-100.0); Mean Platelet Volume 11.1 fL (9.4-12.4); Platelet Count 136 K/uL (130-400); RDW Coefficient of Variation 12.3 % (11.5-14.5); RDW Standard Deviation 42.8 fL (36.4-46.3); Red Blood Count 3.36 M/uL (4.70-6.10)
[2024-02-09 06:47] LABS: BUN Creatinine Ratio 19.8 (10-20); Calcium 8.6 mg/dl (8.6-10.3); Creatinine Clr Calc Pharmacy 36.6 ml/min; Est GFR (African American) 69.9 ml/min; Est GFR (Non-African American) 60.3 ml/min; Phosphorus 2.8 mg/dl (2.5-4.9); Potassium 3.6 mmol/L (3.5-5.1)
--- NOTE | 2024-02-09 11:46 | Hospitalist Progress Note ---
Date of Service February 09, 2024 Assessment & Plan (1) Hypernatremia: (2) Adult failure to thrive: (3) Acute kidney injury: (4) Demand ischemia: Plan Patient is a 68-year-old male with past medical history of primary progressive aphasia, dementia, parkinsonism, hypertension, hyperlipidemia was brought to the hospital for concern of dehydration. On presentation to the ED, is normotensive, afebrile and saturating well on room air. CBC minimal leukocytosis, BMP with hypernatremia sodium of 154, and GUERRERO creatinine of 1.9 Hypernatremia-due to dehydration/decreased fluid intake-sodium improving on D5W. 154->148->42. Hypernatremia resolved GUERRERO-prerenal due to dehydration. Creatinine improving from 1.9 on admission to 1.2. GUERRERO resolved with Ivf. Continue IVF. Avoid nephrotoxics. Renal ultrasound noted. UTI- Urine clx with GNB, remains on cefepime. Will follow final culture results. Blood culture negative. Follow on the fever and WBC trend. Progressive dementia/dysphagia- [facility] evaluation. Palliative following HypertensionBP stable off of home losartan. Continue metoprolol. Hyperlipidemiacontinue Lipitor Dementiacontinue donepezil Parkinson'scontinue Sinemet DVT prophylaxis- sc heparin Disposition- TBD. On iv ABx pending final urine clx results. Still with fever and on ivf. Palliative following for [facility] discussion. Family leaning towards home hospice. Updated family at bedside Time spent-approximately 35 minutes Admission and Anticipated Discharge Date Admission Date: February 07, 2024 Subjective Patient was seen and examined at bedside. He is awake with eyes open but not responding. Per caregiver of 2 years who was at bedside, he seems to be at baseline today. Still with intermittent fever. No acute distress. No respiratory distress. No vomiting. Does not seem to be in any pain or discomfort. Review of Systems Review of Systems: All systems reviewed & are unremarkable except as noted in Subjective Physical Exam Physical Exam: General: Lying comfortably in bed, not in acute distress, on room air Chest: Clear breath sounds bilaterally, no wheezes or crackles CVS: Regular rate and rhythm, normal heart sounds, no murmur Abdomen: Soft, non tender, not distended, normal bowel sounds Neuro: Awake, nonverbal, not following commands Extremities: No edema Results & Data Results & Data Vital Signs (Past 12 Hours) Vital Signs Temp Pulse Pulse Resp BP BP Pulse Ox 02/09/24 11:11 38.0 C H 70 20 128/53 L 98 02/09/24 08:00 63 02/09/24 07:41 36.8 C 61 18 131/57 L 96 02/09/24 06:18 61 145/55 H 02/09/24 03:53 37.2 C 56 L 18 130/56 L 100 02/09/24 00:57 64 114/50 L 02/08/24 23:42 37.8 C H 68 18 126/55 L 99 O2 Del Method 02/09/24 11:11 Room Air 02/09/24 08:00 02/09/24 07:41 Room Air 02/09/24 06:18 02/09/24 03:53 Room Air, CPAP 02/09/24 00:57 02/08/24 23:42 Room Air, CPAP Laboratory Results Short CBC 02/09/24 Range/Units 05:21 WBC 16.10 H (4.8-10.8) K/ul Hgb 10.2 L (14.0-18.0) g/dl Hct 31.9 L (42.0-52.0) % Plt Count 136 (130-400) K/uL BMP 02/08/24 02/09/24 14:58 05:21 Sodium 144 142 Potassium 3.8 3.6 Chloride 113 H 113 H Carbon Dioxide 23 23 BUN 32 H 24 H Creatinine 1.32 1.21 Glucose 137 H 151 H Calcium 8.8 8.6
--- NOTE | 2024-02-09 19:30 | Palliative Care Progress Note ---
Date of Service February 09, 2024 Assessment & Plan (1) Weakness generalized: (2) Myoclonus: (3) Adult failure to thrive: (4) Frontotemporal dementia: (5) Palliative care by specialist: Plan Patient appears to be somewhat improved today with a more awake appearance and improved ability to take p.o. His swallow does appear to be somewhat more coordinated today and per private caregiver at the bedside, he is consumed approximately 50% of his meals. Will continue treatment for his UTI. On my return visit this afternoon, his son and primary caregiver at the bedside. Family is still discussing the option of returning home with the addition of hospice noting that it would certainly give them more caregiving and caregiver resources and support. In addition, having a service to call 11/05 for urgent issues and being able to avoid returns to the hospital has a significant appeal to the family as patient is not easy to transport. It is unclear at this time how much of his mobility he will be able to regain and he has not yet been evaluated by physical therapy. Thank you for allowing us to participate in the ongoing care of this patient. Please don't hesitate to call or page with any additional concerns. Dr. Candace Denis DNP Director, Palliative Care Admission and Anticipated Discharge Date Admission Date: February 07, 2024 Subjective Patient is seen this morning and again this afternoon. Both times he appeared more awake and somewhat alert. On my return visit this afternoon, his son and primary caregiver were at the bedside. Both reports that he was able to take more p.o. today eating approximately 50% of everything offered and his swallow did seem to be a coordinated and reflexive swallow. They did not notice any sp uttering or coughing. They are encouraged that perhaps he is responding to the antibiotic and may return closer to his prior to baseline status. Review of Systems Review of Systems: Unobtainable due to cognitive status Physical Exam Constitutional: + cachectic and + frail appearing Patient is seen lying in bed, eyes open but he does not respond to verbal. There is minimal tracking. He is unable to blink in response to questions or indicate an affirmative or negative answer. He has bilateral contractures of the upper extremities. Eyes: PERRL ENMT: Mouth: + dry oral mucous membranes Neck: trachea midline Respiratory: normal respiratory effort Auscultation: + diminished lung sounds Cardiovascular: Rate/Rhythm: regular rate and regular rhythm Gastrointestinal (Abdomen): Inspection/Auscultation: + scaphoid Percussion/Palpation: + guarding and abdomen soft Musculoskeletal: generalized weakness Skin: + turgor decreased, + skin tightening, + skin atrophy and + pallor Neurologic: non verbal Results & Data Vital Signs (Past 12 Hours) Vital Signs Temp Pulse Pulse Resp BP BP Pulse Ox 02/09/24 18:17 69 161/56 H 02/09/24 18:00 71 170/71 H 02/09/24 15:41 37.5 C 74 18 133/61 99 02/09/24 15:11 64 02/09/24 13:33 63 158/68 H 02/09/24 13:08 69 116/53 L 02/09/24 13:06 69 116/53 L 02/09/24 11:11 38.0 C H 70 20 128/53 L 98 02/09/24 08:00 63 02/09/24 07:41 36.8 C 61 18 131/57 L 96 O2 Del Method 02/09/24 18:17 02/09/24 18:00 02/09/24 15:41 Room Air 02/09/24 15:11 02/09/24 13:33 02/09/24 13:08 02/09/24 13:06 02/09/24 11:11 Room Air 02/09/24 08:00 02/09/24 07:41 Room Air Laboratory Results Abnormal lab results 02/09/24 Range/Units 05:21 WBC 16.10 H (4.8-10.8) K/ul RBC 3.36 L (4.70-6.10) M/uL Hgb 10.2 L (14.0-18.0) g/dl Hct 31.9 L (42.0-52.0) % Chloride 113 H (98-107) mmol/L BUN 24 H (6-23) mg/dl Glucose 151 H (70-99(Fasting)) mg/dl Diagnostic Findings Chest X-Ray 02/07/24 07:57 XR chest 1V portable CLINICAL HISTORY: Sepsis COMPARISON STUDY: Chest CT February 02, 2015. Chest radiograph October 28, 2016. FINDINGS: Lung volumes are normal. Lungs are clear. There is no pneumothorax or pleural effusion. Cardiac size is normal. Mediastinal contours are normal. There is no evidence for pulmonary edema. IMPRESSION: No acute cardiopulmonary findings. ACT 112: Negative or not required by law. Electronically signed by: Jax Olmedo M.D. 02/07/2024 8:26 AM Renal Ultrasound 02/07/24 10:35 RENAL ULTRASOUND CLINICAL HISTORY: Acute kidney injury. COMPARISON STUDY: None. TECHNIQUE: Sonography of the kidneys and the urinary bladder was performed. FINDINGS: The right kidney measures 8.7 cm in maximal dimension and the left measures 9.9 cm. Kidneys are mildly echogenic. There is no hydronephrosis. Both ureteral jets were identified. There is bladder wall thickening. No renal calculi or masses are identified. Renal cortical thickness and size are normal. IMPRESSION: 1. No hydronephrosis. 2. Mild nonspecific bladder wall thickening. 3. Mild increased renal echogenicity. ACT 112: Negative or not required by law. Electronically signed by: Jax Olmedo M.D. 02/07/2024 11:38 AM PG Care Time/CCT Total # of Minutes Spent Total Time Spent with Patient: Total time spent is greater than 50% in coordination of care (as documented) at patient's floor/unit and/or counseling patient: I spent 50 minutes overall addressing this case: 10 min in medical data review/discussion with referring provider(s) and/or preparation for the visit 20 min in direct interaction with the patient/exam 00 min in Advance Care Planning/Goals of Care discussions as detailed above in note (must be >16min) 10 min in subsequent review and synthesis of assessment and plan 10 min communicating with other providers regarding the patient's case: C[place] [address] SUB INP/OBS CARE 3/50MIN Patient Type Established History Comprehensive Exam Comprehensive Medical Decision Making High Complexity Diagnoses Weakness generalized R53.1 Myoclonus G25.3 Adult failure to thrive R62.7 Frontotemporal dementia G31.09; F02.80 Palliative care by specialist Z51.5
[2024-02-09 21:56] LABS: Appearance Urine Cloudy (Clear); Bacteria Urine Automated None Seen (None Seen); Bilirubin Urine Negative (Negative); Blood Urine 1+ (Negative); Color Urine Yellow; Epithelial Cell Urine Auto 0-2 /hpf (0-2); Glucose Urine UA Negative (Negative); Ketones Urine Trace (Negative); Leukocyte Esterase Urine 2+ (Negative); Nitrite Urine Negative (Negative); Protein Urine 1+ (Negative); Specific Gravity Urine 1.029 (1.000-1.030); Urobilinogen Urine Negative (Negative); WBC Urine Automated >50 /hpf (0-5); pH Urine 5.5 (4.5-7.5)
[2024-02-10 07:23] LABS: Basophils # (auto) 0.04 K/uL (0.00-0.20); Basophils % (auto) 0.3 %; Eosinophils # (auto) 0.23 K/uL (0.00-0.50); Eosinophils % (auto) 1.8 %; Immature Granulocytes # (auto) 0.07 K/uL (0.01-0.20); Immature Granulocytes % (auto) 0.5 %; Lymphocytes # (auto) 1.55 K/uL (1.20-3.40); Lymphocytes % (auto) 11.8 %; Mean Corpuscular Hemoglobin 29.7 pg (25.0-34.0); Mean Corpuscular Hgb Conc 31.3 g/dL (32.0-36.0); Mean Platelet Volume 10.6 fL (9.4-12.4); Monocytes # (auto) 0.96 K/uL (0.11-0.59); Monocytes % (auto) 7.3 %; Neutrophils # (auto) 10.26 K/uL (1.40-6.50); Neutrophils % (auto) 78.3 %; Platelet Count 128 K/uL (130-400); RDW Coefficient of Variation 12.5 % (11.5-14.5); RDW Standard Deviation 43.4 fL (36.4-46.3); Red Blood Count 3.37 M/uL (4.70-6.10); White Blood Count 13.11 K/ul (4.8-10.8)
[2024-02-10 07:46] LABS: BUN Creatinine Ratio 15.4 (10-20); Calcium 8.6 mg/dl (8.6-10.3); Creatinine Clr Calc Pharmacy 42.2 ml/min; Est GFR (African American) 83.9 ml/min; Est GFR (Non-African American) 72.4 ml/min; Potassium 3.6 mmol/L (3.5-5.1)
--- NOTE | 2024-02-10 12:04 | Hospitalist Progress Note ---
Date of Service February 10, 2024 Assessment & Plan (1) Hypernatremia: (2) Adult failure to thrive: (3) Acute kidney injury: (4) Demand ischemia: Plan Mr. Kinsey is a 68-year-old male with past medical history of primary progressive aphasia, dementia, parkinsonism, hypertension, hyperlipidemia was brought to the hospital for concern of dehydration. On presentation to the ED, is normotensive, afebrile and saturating well on room air. Leukocytosis improving. Repeat CBC in am. BMP to monitor NA in am. #Hypernatremia-due to dehydration/decreased fluid intake-sodium improving on D5W. 154->148->42. Hypernatremia resolved -d/c continue fluids [place]oke pathway not pursued as hypernatremia and uti likely contributing to symptoms #GUERRERO-prerenal due to dehydration. resolved Creatinine improving from 1.9 on admission to 1.02 Avoid nephrotoxics. #Urinary retention Discuss ch with family, renal function stable, no signs of further infection, stable fever curve #UTI- Urine clx with GNB, treated with cefepime on 02/07, powers sensitive e coli; transiton to Cefidnir 300mg BID, EOT 02/14 afebrile, no WBC #Primary progressive aphasia #Parkinsonism #Functional quadriplegia 2/2 advanced dementia #Dysphagia #Severe protein calorie malnutrition Diagnosed in 2011 after 2 year history of language problems. Followed historically by [facility] On On Aricept 5mg. Neuro eval 11/25/22 exam was suggestive of parkinsonism. Prescribed Sinemet 25/100 TID. Continue above Palliative following: undecided about hospice at this time Aspiration and reflux precautions Pureed diet, po as tolerated #HypertensionBP stable off of home losartan. Continue metoprolol. #Hyperlipidemiacontinue Lipitor DVT prophylaxis- sc heparin Disposition- TBD. On iv ABx pending final urine clx results. Still with fever and on ivf. Palliative following for C discussion. Family leaning towards home hospice. Time spent-approximately 35 minutes Admission and Anticipated Discharge Date Admission Date: February 07, 2024 Subjective no acute events overnight Nurse notes urinary retention Ua collected last evening without bacteria Patient contracted, nonverbal Caregiver mentions patient with good intake this morning Physical Exam Constitutional: ill, cachectic gentleman with contracted left upper extremity Respiratory: normal respiratory effort, lungs clear to auscultation Cardiovascular: RRR, no murmur, no edema Results & Data Results & Data Vital Signs (Past 12 Hours) Vital Signs Temp Pulse Pulse Resp BP BP Pulse Ox 02/10/24 11:35 36.5 C 58 L 16 126/64 100 02/10/24 08:39 56 L 02/10/24 07:35 36.6 C 77 16 118/59 L 95 02/10/24 06:19 55 L 02/10/24 04:11 54 L 119/58 L 02/10/24 03:29 37.3 C 54 L 16 119/58 L 99 02/09/24 23:59 71 117/56 L O2 Del Method 02/10/24 11:35 Room Air 02/10/24 08:39 02/10/24 07:35 BiPAP 02/10/24 06:19 02/10/24 04:11 02/10/24 03:29 BiPAP 02/09/24 23:59 Laboratory Results Short CBC 02/10/24 Range/Units 06:50 WBC 13.11 H (4.8-10.8) K/ul Hgb 10.0 L (14.0-18.0) g/dl Hct 32.0 L (42.0-52.0) % Plt Count 128 L (130-400) K/uL BMP 02/10/24 06:50 Sodium 140 Potassium 3.6 Chloride 112 H Carbon Dioxide 22 BUN 16 Creatinine 1.04 Glucose 148 H Calcium 8.6 Urine 02/09/24 Range/Units 21:34 Urine Color Yellow Urine Appearance Cloudy A (Clear) Urine pH 5.5 (4.5-7.5) Ur Specific [place] 1.029 (1.000-1.030) Urine Protein 1+ H (Negative) Urine Glucose (UA) Negative (Negative) Medications Administered Home Medications Medication Instructions Recorded Confirmed Last Taken atorvastatin 20 mg tablet 20 mg PO QAM 03/28/22 02/07/24 02/05/24 cetirizine 10 mg tablet 10 mg PO QAM 03/28/22 02/07/24 02/05/24 cholecalciferol (vitamin D3) 25 25 mcg PO QAM 03/28/22 02/07/24 02/05/24 mcg (1,000 unit) tablet (Vitamin D3) diclofenac sodium 1 % topical gel 2 g topical BID PRN knee pain 03/28/22 02/07/24 02/05/24 donepezil 5 mg tablet 5 mg PO HS 03/28/22 02/07/24 02/05/24 fluticasone propionate 50 2 spray intranasal QA 03/28/22 02/07/24 02/05/24 mcg/actuation nasal spray,suspension losartan 50 mg tablet 50 mg PO QAM 03/28/22 02/07/24 02/05/24 lutein 20 mg tablet 20 mg PO QAM 03/28/22 02/07/24 02/05/24 metoprolol tartrate 25 mg tablet 12.5 mg PO BID 03/28/22 02/07/24 02/05/24 multivitamin 1 tab PO QAM 03/28/22 02/07/24 02/05/24 omega 6-vka-nzv-fish oil 120 500 cap PO QAM 03/28/22 02/07/24 02/05/24 mg-180 mg-500 mg capsule (Fish Oil) sertraline 50 mg tablet 50 mg PO QA 03/28/22 02/07/24 02/05/24 gentamicin 0.1 % topical ointment 1 applic topical DAILY #15 grams 08/24/23 02/07/24 02/05/24 carbidopa 25 mg-levodopa 100 mg 1 tab PO QAM 02/07/24 02/07/24 02/05/24 tablet propylene glycol 0.6 % eye drops 1 drp ophthalmic (eye) BID 02/07/24 02/07/24 02/05/24 (Systane Balance) Active Medications Generic Name Dose Route Start Last Admin Trade Name Liliana PRN Reason Stop Dose Admin Atorvastatin Calcium 20 mg 02/08/24 09:00 02/10/24 08:43 Atorvastatin 20 Mg Tab PO 03/09/24 08:59 20 mg QAM FIDELIA Administration Carbidopa/Levodopa 1 tab 02/08/24 09:00 02/10/24 08:42 Carbidopa/Levodopa 25/100mg Tab PO 03/09/24 08:59 1 tab QAM FIDELIA Administration Cetirizine HCl 10 mg 02/08/24 09:00 02/10/24 08:42 Cetirizine Hcl 10 Mg Tablet PO 03/09/24 08:59 10 mg QAM FIDELIA Administration Donepezil HCl 5 mg 02/07/24 21:00 02/09/24 20:10 Donepezil Hcl 5 Mg Tab PO 03/08/24 20:59 5 mg HS FIDELIA Administration Fish Oil 1 gm 02/08/24 09:00 02/10/24 08:43 [place]-3 (Purified Fish Oil) 1 Gm Cap PO 03/09/24 08:59 Not Given QAM FIDELIA Heparin Sodium (Porcine) 5,000 units 02/07/24 21:00 02/10/24 08:43 Heparin Sod 5,000 Unit/0.5 Ml Vial SQ 03/08/24 20:59 5,000 units Q12 FIDELIA Administration Acetaminophen 650 mg/ EMPTY 65 mls @ 260 mls/hr 02/08/24 04:45 02/10/24 00:13 BAG IV 03/09/24 04:44 Infused Q8H PRN Infusion Pain/Fever Protocol Metoprolol Tartrate 12.5 mg 02/07/24 21:00 02/07/24 19:18 Metoprolol Tartrate 25 Mg Tab PO 03/08/24 20:59 Not Given BID FIDELIA Metoprolol Tartrate 2.5 mg 02/08/24 06:00 02/10/24 06:19 Metoprolol Tartrate 1 Mg/Ml Vial IV 03/09/24 05:59 Not Given Q6H FIDELIA Multivitamins 1 tab 02/08/24 09:00 02/10/24 08:43 Multivitamin Tab PO 03/09/24 08:59 1 tab QAM FIDELIA Administration Sertraline HCl 50 mg 02/08/24 09:00 02/10/24 08:42 Sertraline Hcl 50 Mg Tablet PO 03/09/24 08:59 50 mg QAM FIDELIA Administration Vitamin D 25 mcg 02/08/24 09:00 02/10/24 08:43 Cholecalciferol 25 Mcg (1000 Units) Tab PO 03/09/24 08:59 25 mcg QAM FIDELIA Administration
[2024-02-10] MEDS: LIDOCAINE 2% JELLY 5 ML TUBE EXT STA (14:53)
[2024-02-10] MEDS: CEFDINIR 300 MG CAP PO SCH (16:46)
--- NOTE | 2024-02-11 00:04 | Palliative Care Progress Note ---
Date of Service February 10, 2024 Assessment & Plan (1) Weakness generalized: (2) Myoclonus: (3) Adult failure to thrive: (4) Frontotemporal dementia: (5) Palliative care by specialist: Plan Hermes is taking PO but output has declined and a Ch is planned for today. ACP: I spoke with his by phone 135-155pm/20min. She is optimistic with his return to taking PO and is hopeful to bring him back home "when he is back to normal." She is reluctant to consider there is a new normal evolving and feels for now maybe he will not need hospice, though caregiver and sons have indicated having the additional support/resources and guidance would be beneficial to everyone. Will continue treatment for his UTI. I will have a follow up meeting with Thursday at 1pm, at bedside. and family aware I am in outpatient clinic on and therefore not in the hospital. I am available by [employer] [employer] for urgent issues. Thank you for allowing us to participate in the ongoing care of this patient. Please don't hesitate to call or page with any additional concerns. Dr. Candace Denis DNP Director, Palliative Care Admission and Anticipated Discharge Date Admission Date: February 07, 2024 Subjective Hermes is seen bedside with his caregiver no family present but is coming this afternoon He is taking PO but output decreased and a ch will be trialed no other acute issues no resp distress he remains non verbal Review of Systems Review of Systems: Unobtainable due to cognitive status Physical Exam Constitutional: + cachectic and + frail appearing semi reclined in bed, eyes open but do not track. no response to verbal. He is unable to blink in response to questions or indicate an affirmative or negative answer. He has bilateral contractures of the upper extremities. Eyes: PERRL ENMT: Mouth: + dry oral mucous membranes Neck: trachea midline Respiratory: normal respiratory effort Auscultation: + diminished lung sounds Cardiovascular: Rate/Rhythm: regular rate and regular rhythm Gastrointestinal (Abdomen): Inspection/Auscultation: + scaphoid Percussion/Palpation: + guarding and abdomen soft Musculoskeletal: generalized weakness Skin: + turgor decreased, + skin tightening, + skin atrophy and + pallor Neurologic: non verbal Results & Data Vital Signs (Past 12 Hours) Vital Signs Temp Pulse Pulse Resp BP BP Pulse Ox 02/10/24 23:40 37.8 C H 57 L 16 125/62 99 02/10/24 23:35 58 L 02/10/24 23:13 64 131/58 L 02/10/24 22:09 02/10/24 21:58 63 02/10/24 20:07 36.8 C 64 14 131/58 L 98 02/10/24 17:40 58 L 131/58 L 02/10/24 17:39 58 L 131/58 L 02/10/24 15:55 37.3 C 60 16 127/56 L 97 02/10/24 15:41 61 02/10/24 12:57 58 L O2 Del Method 02/10/24 23:40 CPAP 02/10/24 23:35 02/10/24 23:13 02/10/24 22:09 CPAP 02/10/24 21:58 02/10/24 20:07 Room Air 02/10/24 17:40 02/10/24 17:39 02/10/24 15:55 Room Air 02/10/24 15:41 02/10/24 12:57 Laboratory Results Abnormal lab results 02/10/24 Range/Units 06:50 WBC 13.11 H (4.8-10.8) K/ul RBC 3.37 L (4.70-6.10) M/uL Hgb 10.0 L (14.0-18.0) g/dl Hct 32.0 L (42.0-52.0) % MCHC 31.3 L (32.0-36.0) g/dL Plt Count 128 L (130-400) K/uL Neut # (Auto) 10.26 H (1.40-6.50) K/uL [place] # (Auto) 0.96 H (0.11-0.59) K/uL Chloride 112 H (98-107) mmol/L Glucose 148 H (70-99(Fasting)) mg/dl PG Care Time/CCT Total # of Minutes Spent Total Time Spent with Patient: Total time spent is greater than 50% in coordination of care (as documented) at patient's floor/unit and/or counseling patient: I spent 65 minutes overall addressing this case: 5 min in medical data review/discussion with referring provider(s) and/or preparation for the visit 15 min in direct interaction with the patient/exam 20 min in Advance Care Planning/Goals of Care discussions as detailed above in note (must be >16min) 10 min in subsequent review and synthesis of assessment and plan 15 min communicating with other providers regarding the alejandro ent's case: Advanced Care Planning 82339 Advanced Care Planning 30 Min [place] [address] SUB INP/OBS CARE 3/50MIN Patient Type Established History Comprehensive Exam Comprehensive Medical Decision Making High Complexity Diagnoses Weakness generalized R53.1 Myoclonus G25.3 Adult failure to thrive R62.7 Frontotemporal dementia G31.09; F02.80 Palliative care by specialist Z51.5 Additional Codes Advanced Care Planning - 68198 Advanced Care Planning 30 Min: [id number] Advanced Care Planning 30 Min ([id number])
[2024-02-11 06:54] LABS: Hematocrit (blood only) 28.8 % (42.0-52.0); Hemoglobin 9.3 g/dl (14.0-18.0); Mean Corpuscular Hemoglobin 29.9 pg (25.0-34.0); Mean Corpuscular Hgb Conc 32.3 g/dL (32.0-36.0); Mean Corpuscular Volume 92.6 fL (80.0-100.0); Mean Platelet Volume 11.1 fL (9.4-12.4); Platelet Count 149 K/uL (130-400); RDW Coefficient of Variation 12.3 % (11.5-14.5); RDW Standard Deviation 41.9 fL (36.4-46.3); Red Blood Count 3.11 M/uL (4.70-6.10); White Blood Count 9.19 K/ul (4.8-10.8)
[2024-02-11 07:26] LABS: BUN Creatinine Ratio 17.4 (10-20); Calcium 8.6 mg/dl (8.6-10.3); Creatinine Clr Calc Pharmacy 52.5 ml/min; Est GFR (African American) 101.8 ml/min; Est GFR (Non-African American) 87.9 ml/min; Potassium 3.8 mmol/L (3.5-5.1)
--- NOTE | 2024-02-11 14:11 | Hospitalist Progress Note ---
Date of Service February 11, 2024 Assessment & Plan (1) Hypernatremia: (2) Adult failure to thrive: (3) Acute kidney injury: (4) Demand ischemia: Plan Mr. Kinsey is a 68-year-old male with past medical history of primary progressive aphasia, dementia, parkinsonism, hypertension, hyperlipidemia was brought to the hospital for concern of dehydration. On presentation to the ED, is normotensive, afebrile and saturating well on room air. Leukocytosis resolved. Will start QOD blood draw now that WBC has resolved. #Hypernatremia-due to dehydration/decreased fluid intake-sodium improving on D5W. 154->148->42. Hypernatremia resolved -d/c continue fluids Stoke pathway not pursued as hypernatremia and uti likely contributing to symptoms CTM, eating well, encourage PO intake #GUERRERO-prerenal due to dehydration. resolved Creatinine improving from 1.9 on admission to 1.02 Avoid nephrotoxics. #Urinary retention Discuss ch with family, renal function stable, no signs of further infection, stable fever curve Trial doxasin this evening with plan for void trial #UTI- Urine clx with GNB, treated with cefepime on 02/07, powers sensitive e coli; Continue Cefidnir 300mg BID, EOT 02/14 afebrile, no WBC #Primary progressive aphasia #Parkinsonism #Functional quadriplegia 2/2 advanced dementia #Dysphagia #Severe protein calorie malnutrition Diagnosed in 2011 after 2 year history of language problems. Followed historically by [facility] On On Aricept 5mg. Neuro eval 11/25/22 exam was suggestive of parkinsonism. Prescribed Sinemet 25/100 TID. Continue above Palliative following: undecided about hospice at this time Aspiration and reflux precautions Pureed diet, po as tolerated #HypertensionBP stable off of home losartan. Continue metoprolol, transition off of IV to PO #Hyperlipidemiacontinue Lipitor DVT prophylaxis- sc heparin Disposition- TBD. Urine culture: E coli, pansensitive. Palliative following for GOC discussion. May not transition to hospice given patient with increased appetite and more awake Time spent-approximately 35 minutes Admission and Anticipated Discharge Date Admission Date: February 07, 2024 Subjective No acute events overnight at bedside, initially worried about lethargy of patient this morning, but seems to have improved by lunch time as patient ate entire lunch tray and nearly a container of boost. Physical Exam Constitutional: WD/WN, vitals as above nonverbal, eyes open and awake, eating when food and liquid near mouth, seems responsive to verbal stimuli Respiratory: normal respiratory effort, lungs clear to auscultation Cardiovascular: RRR, no murmur, no edema Results & Data Results & Data Vital Signs (Past 12 Hours) Vital Signs Temp Pulse Pulse Resp BP BP Pulse Ox 02/11/24 12:25 57 L 116/54 L 02/11/24 12:10 62 119/60 02/11/24 11:44 36.7 C 61 16 138/51 L 100 02/11/24 10:11 58 L 02/11/24 07:51 37.6 C H 61 16 137/58 L 99 02/11/24 06:13 56 L 02/11/24 05:50 65 129/64 02/11/24 02:56 37 C 60 16 129/64 100 O2 Del Method 02/11/24 12:25 02/11/24 12:10 02/11/24 11:44 Room Air 02/11/24 10:11 02/11/24 07:51 BiPAP 02/11/24 06:13 02/11/24 05:50 02/11/24 02:56 CPAP Laboratory Results Short CBC 02/11/24 Range/Units 05:18 WBC 9.19 (4.8-10.8) K/ul Hgb 9.3 L (14.0-18.0) g/dl Hct 28.8 L (42.0-52.0) % Plt Count 149 (130-400) K/uL BMP 02/11/24 05:18 Sodium 142 Potassium 3.8 Chloride 114 H Carbon Dioxide 23 BUN 15 Creatinine 0.86 Glucose 99 Calcium 8.6 Medications Administered Home Medications Medication Instructions Recorded Confirmed Last Taken atorvastatin 20 mg tablet 20 mg PO QAM 03/28/22 02/07/24 02/05/24 cetirizine 10 mg tablet 10 mg PO QAM 03/28/22 02/07/24 02/05/24 cholecalciferol (vitamin D3) 25 25 mcg PO QAM 03/28/22 02/07/24 02/05/24 mcg (1,000 unit) tablet (Vitamin D3) diclofenac sodium 1 % topical gel 2 g topical BID PRN knee pain 06/08/0902/07/24 02/05/24 donepezil 5 mg tablet 5 mg PO HS 03/28/22 02/07/24 02/05/24 fluticasone propionate 50 2 spray intranasal [facility] 03/28/22 02/07/24 02/05/24 mcg/actuation nasal spray,suspension losartan 50 mg tablet 50 mg PO QAM 03/28/22 02/07/24 02/05/24 lutein 20 mg tablet 20 mg PO QA 03/28/22 02/07/24 02/05/24 metoprolol tartrate 25 mg tablet 12.5 mg PO BID 03/28/22 02/07/24 02/05/24 multivitamin 1 tab PO QA 03/28/22 02/07/24 02/05/24 omega 4-api-smr-fish oil 120 500 cap PO QA 03/28/22 02/07/24 02/05/24 mg-180 mg-500 mg capsule (Fish Oil) sertraline 50 mg tablet 50 mg PO [facility] 03/28/22 02/07/24 02/05/24 gentamicin 0.1 % topical ointment 1 applic topical DAILY #15 grams 08/24/23 02/07/24 02/05/24 carbidopa 25 mg-levodopa 100 mg 1 tab PO QAM 02/07/24 02/07/24 02/05/24 tablet propylene glycol 0.6 % eye drops 1 drp ophthalmic (eye) BID 02/07/24 02/07/24 02/05/24 (Systane Balance) Active Medications Generic Name Dose Route Start Last Admin Trade Name Liliana PRN Reason Stop Dose Admin Atorvastatin Calcium 20 mg 02/08/24 09:00 02/11/24 08:33 Atorvastatin 20 Mg Tab PO 03/09/24 08:59 20 mg QAM FIDELIA Administration Carbidopa/Levodopa 1 tab 02/08/24 09:00 02/11/24 08:33 Carbidopa/Levodopa 25/100mg Tab PO 03/09/24 08:59 1 tab QAM FIDELIA Administration Cefdinir 300 mg 02/10/24 16:00 02/11/24 05:50 Cefdinir 300 Mg Cap PO 02/15/24 15:59 300 mg Q12H FIDELIA Administration Protocol Cetirizine HCl 10 mg 02/08/24 09:00 02/11/24 08:33 Cetirizine Hcl 10 Mg Tablet PO 03/09/24 08:59 10 mg QAM FIDELIA Administration Donepezil HCl 5 mg 02/07/24 21:00 02/10/24 20:51 Donepezil Hcl 5 Mg Tab PO 03/08/24 20:59 5 mg HS FIDELIA Administration Fish Oil 1 gm 02/08/24 09:00 02/11/24 08:33 Holt-3 (Purified Fish Oil) 1 Gm Cap PO 03/09/24 08:59 Not Given QAM FIDELIA Heparin Sodium (Porcine) 5,000 units 02/07/24 21:00 02/11/24 08:33 Heparin Sod 5,000 Unit/0.5 Ml Vial SQ 03/08/24 20:59 5,000 units Q12 FIDELIA Administration Acetaminophen 650 mg/ EMPTY 65 mls @ 260 mls/hr 02/08/24 04:45 02/10/24 00:13 BAG IV 03/09/24 04:44 Infused Q8H PRN Infusion Pain/Fever Protocol Metoprolol Tartrate 12.5 mg 02/07/24 21:00 02/07/24 19:18 Metoprolol Tartrate 25 Mg Tab PO 03/08/24 20:59 Not Given BID FIDELIA Multivitamins 1 tab 02/08/24 09:00 02/11/24 08:33 Multivitamin Tab PO 03/09/24 08:59 1 tab QAM FIDELIA Administration Sertraline HCl 50 mg 02/08/24 09:00 02/11/24 08:33 Sertraline Hcl 50 Mg Tablet PO 03/09/24 08:59 50 mg QAM FIDELIA Administration Vitamin D 25 mcg 02/08/24 09:00 02/11/24 08:33 Cholecalciferol 25 Mcg (1000 Units) Tab PO 03/09/24 08:59 25 mcg QAM FIDELIA Administration
[2024-02-11] MEDS: DOXAZosin MESYLATE TAB 2 MG TAB PO SCH (20:50)
[2024-02-12 08:45] LABS: Albumin Globulin Ratio 0.9 (0.9-2); Albumin Level 2.9 gm/dl (3.4-5.0); BUN Creatinine Ratio 19.8 (10-20); Bilirubin,Total 0.3 mg/dl (0.2-1.0); Creatinine Clr Calc Pharmacy 52.5 ml/min; Est GFR (African American) 101.8 ml/min; Est GFR (Non-African American) 87.9 ml/min; Globulin 3.4 gm/dl (2.5-4.0); Potassium 3.8 mmol/L (3.5-5.1); Total Protein 6.3 gm/dl (6.0-8.3)
[2024-02-12 09:04] LABS: Hematocrit (blood only) 27.2 % (42.0-52.0); Hemoglobin 8.9 g/dl (14.0-18.0); Mean Corpuscular Hemoglobin 29.8 pg (25.0-34.0); Mean Corpuscular Hgb Conc 32.7 g/dL (32.0-36.0); Mean Platelet Volume 10.4 fL (9.4-12.4); Platelet Count 162 K/uL (130-400); RDW Coefficient of Variation 12.3 % (11.5-14.5); RDW Standard Deviation 40.9 fL (36.4-46.3); Red Blood Count 2.99 M/uL (4.70-6.10); White Blood Count 6.94 K/ul (4.8-10.8)
--- NOTE | 2024-02-12 13:04 | CT Scan Report ---
CT OF THE HEAD WITHOUT CONTRAST CLINICAL HISTORY: Altered mental status. COMPARISON STUDY: Head CT October 28, 2016. TECHNIQUE: Helical axial images of the head were obtained without IV contrast. Automated exposure con trol was utilized for the study. A dose lowering technique was utilized adhering to the principles o f ALARA. FINDINGS: No acute intracranial hemorrhage, midline shift or mass effect is present. Severe bilateral frontotemporal volume loss has progressed since CT of October 28, 2016. Associated marked dilatation of the frontal and temporal horns of the lateral ventricles has also progressed. Basal cisterns are patent. There are no intra-axial collections. White matter hypodensities are chronic. There are no fi ndings to suggest acute dural sinus thrombosis or acute territorial infarct. There are no calvarial f ractures. Sphenoid sinuses are largely opacified. Posterior ethmoid sinuses are also opacified. IMPRESSION: 1. No acute intracranial findings. 2. Progression of severe bilateral frontotemporal volume loss/encephalomalacia with associated marked dilatation of the frontal and temporal horns since CT of October 28, 2016. The CT appearance favors frontotemporal dementia. 3. Sphenoid and posterior ethmoid sinusitis, possibly acute. ACT 112: Negative or not required by law. Electronically signed by: Jax Olmedo M.D. 02/12/2024 1:03 PM
--- NOTE | 2024-02-12 13:20 | CT Scan Report ---
CT OF THE ABDOMEN AND PELVIS WITHOUT CONTRAST CLINICAL HISTORY: unclear ? infection COMPARISON STUDY: Renal ultrasound February 07, 2024. TECHNIQUE: Axial images of the abdomen and pelvis were obtained without IV contrast. Images were revi ewed in the axial, sagittal, and coronal planes. Automated exposure control was utilized for the malik dy. A dose lowering technique was utilized adhering to the principles of ALARA. FINDINGS: Lung bases are unremarkable. No renal, ureteral or bladder calculi are present. A Hanley bal loon and gas within the bladder present. There is moderate bladder wall thickening. There is adjacent stranding and a small amount of fluid within the pelvis. No significant perinephric stranding is pre sent. Evaluation of the remainder of the abdomen and pelvis is suboptimal on this unenhanced exam. Li bal, spleen, adrenal glands and pancreas are unremarkable. There is no evidence for a bowel obstructi on. There is a moderate amount of stool within the rectum. There is mild adjacent stranding and mild rectal wall thickening. There is no evidence for acute appendicitis. No fluid collections are present . There is no lymphadenopathy. Right acetabulum is shallow with chronic deformity right femoral head and severe right hip osteoarthritis. The findings are chronic. No acute fractures are identified. IMPRESSION: 1. No urinary calculi or hydronephrosis. 2. Moderate bladder wall thickening with adjacent stranding. This suggests cystitis. Hanley balloon an d gas within the bladder. 3. Moderate amount of stool within the colon. Mild rectal wall thickening. Adjacent stranding may be due to volume overload or cystitis. Stercoral colitis is considered less likely but could appear sherry lar. 4. No bowel obstruction. 5. Small amount of fluid within the pelvis. ACT 112: Negative or not required by law. Electronically signed by: Jax Olmedo M.D. 02/12/2024 1:18 PM
[2024-02-12] MEDS: bisacodyL 10 MG SUPP PR STA (14:13)
--- NOTE | 2024-02-12 15:10 | Hospitalist Progress Note ---
Date of Service February 12, 2024 Assessment & Plan (1) Hypernatremia: (2) Adult failure to thrive: (3) Acute kidney injury: (4) Demand ischemia: Plan Mr. Kinsey is a 68-year-old male with past medical history of primary progressive aphasia, dementia, parkinsonism, hypertension, hyperlipidemia was brought to the hospital for concern of dehydration. On presentation to the ED, is normotensive, afebrile and saturating well on room air. Leukocytosis resolved for 48 hours. Intermittent fevers with no clear infectious source--skin clear, urine looks clear and repeat UA without growth, CTABD with stool burden (potentially contributing to urinary retention, delirium) Family wishes for home services. Will work to optimize bowel regimen, void trial, and PT/OT evls for home services to be established. #Hypernatremia-due to dehydration/decreased fluid intake-sodium improving on D5W. 154->148->42. Hypernatremia resolved -d/c continue fluids Stoke pathway not pursued as hypernatremia and uti likely contributing to symptoms CTM, eating well, encourage PO intake #GUERRERO-prerenal due to dehydration. resolved Creatinine improving from 1.9 on admission to 1.02 Avoid nephrotoxics. #Urinary retention Discuss ch with family, renal function stable, no signs of further infection, stable fever curve Trial doxasin this evening with plan for void trial today -Bowel regimen as constipation likely contributing -scheduled sennakot #UTI- Urine clx with GNB, treated with cefepime on 02/07, powers sensitive e coli; Continue Cefidnir 300mg BID, EOT 02/14 afebrile, no WBC #Primary progressive aphasia #Parkinsonism #Functional quadriplegia 2/2 advanced dementia #Dysphagia #Severe protein calorie malnutrition Diagnosed in 2011 after 2 year history of language problems. Followed historically by [facility] On On Aricept 5mg. Neuro eval 11/25/22 exam was suggestive of parkinsonism. Prescribed Sinemet 25/100 TID. Continue above Palliative following: undecided about hospice at this time Aspiration and reflux precautions Pureed diet, po as tolerated #HypertensionBP stable off of home losartan. Continue metoprolol PO #Hyperlipidemiacontinue Lipitor DVT prophylaxis- sc heparin Disposition- TBD. Urine culture: E coli, pansensitive. Palliative following for GOC discussion. Plan to discharge home with [facility] home health on 02/14 Time spent-approximately 60 minutes Admission and Anticipated Discharge Date Admission Date: February 07, 2024 Subjective NAEO Family concerned for hypoactivity noted in the mornings Family meeting (35 minutes) held with , Lakisha and son. Discussed course of patient's care and progression. Discussed that the level of encephalomalacia seen in CT of head would explain the degree of delirium and decline noted from this hospitalization Family wishing for PT/OT eval for referral for home services as patient was able to (with notable assistance and prompting) walk and move. Family hoping to bring patient home with home service, but not ready for hospice at this time Physical Exam Constitutional: awake, will look and make eye contact with verbal stimuli Respiratory: normal respiratory effort, lungs clear to auscultation Cardiovascular: RRR, no murmur, no edema Gastrointestinal (Abdomen): normal bowel sounds, soft, nontender, no hepatosplenomegaly Musculoskeletal: extremely rigid, retropulsion noted with log roll, requires priming to move limbs Skin: full skin review performed, no signs of pressure wounds noted, hyperpigmentation on midback--reportedly chronic per caregiver Results & Data Results & Data Vital Signs (Past 12 Hours) Vital Signs Temp Pulse Pulse Resp BP Pulse Ox O2 Del Method 02/12/24 11:15 36.7 C 53 L 18 118/63 100 Room Air 02/12/24 09:42 58 L 02/12/24 07:55 36.1 C L 63 18 100 Room Air 02/12/24 07:34 BiPAP 02/12/24 03:03 37.9 C H 74 18 129/61 99 Room Air, CPAP Laboratory Results Short CBC 02/12/24 Range/Units 07:57 WBC 6.94 (4.8-10.8) K/ul Hgb 8.9 L (14.0-18.0) g/dl Hct 27.2 L (42.0-52.0) % Plt Count 162 (130-400) K/uL BMP 02/12/24 07:57 Sodium 139 Potassium 3.8 Chloride 109 H Carbon Dioxide 25 BUN 17 Creatinine 0.86 Glucose 99 Calcium 8.0 L Liver Function 02/12/24 Range/Units 07:57 Total Bilirubin 0.3 (0.2-1.0) mg/dl AST 29 (13-39) U/L ALT 16 (7-52) U/L Alkaline Phosphatase 43 (34-104) U/L Albumin 2.9 L (3.4-5.0) gm/dl Diagnostic Findings Abdomen/Pelvis CT 02/12/24 10:49 CT OF THE ABDOMEN AND PELVIS WITHOUT CONTRAST CLINICAL HISTORY: unclear ? infection COMPARISON STUDY: Renal ultrasound February 07, 2024. TECHNIQUE: Axial images of the abdomen and pelvis were obtained without IV contrast. Images were reviewed in the axial, sagittal, and coronal planes. Automated exposure control was utilized for the study. A dose lowering technique was utilized adhering to the principles of ALARA. FINDINGS: Lung bases are unremarkable. No renal, ureteral or bladder calculi are present. A Ch balloon and gas within the bladder present. There is moderate bladder wall thickening. There is adjacent stranding and a small amount of fluid within the pelvis. No significant perinephric stranding is present. Evaluation of the remainder of the abdomen and pelvis is suboptimal on this unenhanced exam. Liver, spleen, adrenal glands and pancreas are unremarkable. There is no evidence for a bowel obstruction. There is a moderate amount of stool within the rectum. There is mild adjacent stranding and mild rectal wall thickening. There is no evidence for acute appendicitis. No fluid collections are present. There is no lymphadenopathy. Right acetabulum is shallow with chronic deformity right femoral head and severe right hip osteoarthritis. The findings are chronic. No acute fractures are identified. IMPRESSION: 1. No urinary calculi or hydronephrosis. 2. Moderate bladder wall thickening with adjacent stranding. This suggests cystitis. Ch balloon and gas within the bladder. 3. Moderate amount of stool within the colon. Mild rectal wall thickening. Adjacent stranding may be due to volume overload or cystitis. Stercoral colitis is considered less likely but could appear similar. 4. No bowel obstruction. 5. Small amount of fluid within the pelvis. ACT 112: Negative or not required by law. Electronically signed by: Jax Olmedo M.D. 02/12/2024 1:[address] 02/12/24 10:51 CT OF THE HEAD WITHOUT CONTRAST CLINICAL HISTORY: Altered mental status. COMPARISON STUDY: Head CT October 28, 2016. TECHNIQUE: Helical axial images of the head were obtained without IV contrast. Automated exposure control was utilized for the study. A dose lowering technique was utilized adhering to the principles of ALARA. FINDINGS: No acute intracranial hemorrhage, midline shift or mass effect is present. Severe bilateral frontotemporal volume loss has progressed since CT of October 28, 2016. Associated marked dilatation of the frontal and temporal horns of the lateral ventricles has also progressed. Basal cisterns are patent. There are no intra-axial collections. White matter hypodensities are chronic. There are no findings to suggest acute dural sinus thrombosis or acute territorial infarct. There are no calvarial fractures. Sphenoid sinuses are largely opacified. Posterior ethmoid sinuses are also opacified. IMPRESSION: 1. No acute intracranial findings. 2. Progression of severe bilateral frontotemporal volume loss/encephalomalacia with associated marked dilatation of the frontal and temporal horns since CT of October 28, 2016. The CT appearance favors frontotemporal dementia. 3. Sphenoid and posterior ethmoid sinusitis, possibly acute. ACT 112: Negative or not required by law. Electronically signed by: Jax Olmedo M.D. 02/12/2024 1:03 PM Medications Administered Home Medications Medication Instructions Recorded Confirmed Last Taken atorvastatin 20 mg tablet 20 mg PO QAM 03/28/22 02/07/24 02/05/24 cetirizine 10 mg tablet 10 mg PO QAM 03/28/22 02/07/24 02/05/24 cholecalciferol (vitamin D3) 25 25 mcg PO QAM 03/28/22 02/07/24 02/05/24 mcg (1,000 unit) tablet (Vitamin D3) diclofenac sodium 1 % topical gel 2 g topical BID PRN knee pain 03/28/22 02/07/24 02/05/24 donepezil 5 mg tablet 5 mg PO HS 03/28/22 02/07/24 02/05/24 fluticasone propionate 50 2 spray intranasal QAM 03/28/22 02/07/24 02/05/24 mcg/actuation nasal spray,suspension losartan 50 mg tablet 50 mg PO QAM 03/28/22 02/07/24 02/05/24 lutein 20 mg tablet 20 mg PO QAM 03/28/22 02/07/24 02/05/24 metoprolol tartrate 25 mg tablet 12.5 mg PO BID 03/28/22 02/07/24 02/05/24 multivitamin 1 tab PO QAM 03/28/22 02/07/24 02/05/24 omega 7-kmi-afu-fish oil 120 500 cap PO QAM 03/28/22 02/07/24 02/05/24 mg-180 mg-500 mg capsule (Fish Oil) sertraline 50 mg tablet 50 mg PO QAM 03/28/22 02/07/24 02/05/24 gentamicin 0.1 % topical ointment 1 applic topical DAILY #15 grams 08/24/23 02/07/24 02/05/24 carbidopa 25 mg-levodopa 100 mg 1 tab PO QAM 02/07/24 02/07/24 02/05/24 tablet propylene glycol 0.6 % eye drops 1 drp ophthalmic (eye) BID 02/07/24 02/07/24 02/05/24 (Systane Balance) Active Medications Generic Name Dose Route Start Last Admin Trade Name Freq PRN Reason Stop Dose Admin Atorvastatin Calcium 20 mg 02/08/24 09:00 02/12/24 08:18 Atorvastatin 20 Mg Tab PO 03/09/24 08:59 20 mg QAM FIDELIA Administration Carbidopa/Levodopa 1 tab 02/08/24 09:00 02/12/24 08:18 Carbidopa/Levodopa 25/100mg Tab PO 03/09/24 08:59 1 tab QAM FIDELIA Administration Cefdinir 300 mg 02/10/24 16:00 02/12/24 04:27 Cefdinir 300 Mg Cap PO 02/15/24 15:59 300 mg Q12H FIDELIA Administration Protocol Cetirizine HCl 10 mg 02/08/24 09:00 02/11/24 08:33 Cetirizine Hcl 10 Mg Tablet PO 03/09/24 08:59 10 mg QAM FIDELIA Administration Donepezil HCl 5 mg 02/07/24 21:00 02/11/24 20:50 Donepezil Hcl 5 Mg Tab PO 03/08/24 20:59 5 mg HS FIDELIA Administration Doxazosin Mesylate 2 mg 02/11/24 21:00 02/11/24 20:50 Doxazosin Mesylate Tab 2 Mg Tab PO 03/12/24 20:59 2 mg HS FIDELIA Administration Heparin Sodium (Porcine) 5,000 units 02/07/24 21:00 02/12/24 08:18 Heparin Sod 5,000 Unit/0.5 Ml Vial SQ 03/08/24 20:59 5,000 units Q12 FIDELIA Administration Acetaminophen 650 mg/ EMPTY 65 mls @ 260 mls/hr 02/08/24 04:45 02/10/24 00:13 BAG IV 03/09/24 04:44 Infused Q8H PRN Infusion Pain/Fever Protocol Metoprolol Tartrate 12.5 mg 02/07/24 21:00 02/12/24 09:28 Metoprolol Tartrate 25 Mg Tab PO 03/08/24 20:59 12.5 mg BID FIDELIA Administration Multivitamins 1 tab 02/08/24 09:00 02/12/24 08:18 Multivitamin Tab PO 03/09/24 08:59 1 tab QAM FIDELIA Administration Sertraline HCl 50 mg 02/08/24 09:00 02/12/24 08:18 Sertraline Hcl 50 Mg Tablet PO 03/09/24 08:59 50 mg QAM FIDELIA Administration Vitamin D 25 mcg 02/08/24 09:00 02/12/24 08:18 Cholecalciferol 25 Mcg (1000 Units) Tab PO 03/09/24 08:59 25 mcg QAM FIDELIA Administration
[2024-02-12] MEDS: DOCUSATE SODIUM/SENNA 50/8.6MG TAB PO SCH (15:58)
--- NOTE | 2024-02-12 22:21 | Palliative Care Progress Note ---
Date of Service February 12, 2024 Assessment & Plan (1) Weakness generalized: (2) Myoclonus: (3) Adult failure to thrive: (4) Discussion about advance care planning held with family member: Plan: Face to face ACP with Lakisha and son Kristopher along with Dr Aponte for 40min in family waiting room. Lakisha is very worried about: He looks tired, she feels he is not sleeping welel due to a very disruptive new roommates, he has not been out of bed, he needs to stay here for rehab/physical therapy till he is strong enough to walk around again before coming home. Kristopher shares they spoke as a family last night and are not ready for hospice, but would like VNS with ongoing f/u in [facility] clinic. We reviewed clinical events to date. We went over the CT Head which reported progression of severe bilateral frontotemporal volume loss/encephalomalacia with associated marked dilatation of the frontal and temporal horns since CT of October 28, 2016. I reviewed the findings and we discussed how encephalomalaciais the softening orlossof brain tissue. We know that frontotemporal dementia tends todevelop slowly and get gradually worse over several years and that patients with FTD typically livesix to eight yearswith their condition, sometimes longer, sometimes less. Most people of problems related to advanced disease. What we are seeing evolve is the progression of his very severe, nearing end stage dementia. We spoke about how FTD degeneration pr ogresses more rapidly than Alzheimer disease. Pneumonia is the most common cause of , with FTD. People are also at increased risk for infections and fall- related injuries. Insomnia and excessive daytime sleepiness commonly occur in patients with FTD and significantly contribute to caregiver burden and burnout. Dr. Aponte reviewed that there are no acute issues at this time that need escalated interventions to try and correct. She ran additional labs and imaging to see if she could find anything acute and treatable and those tests have not found more than the CT demonstrating progressive dementia. Findings are consistent with FTD progression and worsening, expected changes in the course of this terminal neurologic disease. Although Lakisha expressed understanding, she would through this conversation return to asking for PT to make him stronger, fixing the strength issues and asking what we will do to make him better and improve [employer] baseline. Gently reiterated findings and their meanings. Reviewed FTD progression and how that "looks" on a patient. Discussed options for improving in home support. They have arranged for [employer] caregivers in 3 eight hour shifts. The family do not want hospice at this time but they would like VNS with home PT, Lakisha is determined to see how much "better" patient can get. She is encouraged that he has been able to take PO and is swallowing food during feedings. Lakisha's devotion and advocacy for pt is noted. SHe is in denial about the severity of his illness and what "better" means to her now is not an achievable "better" given his very advanced illness. It is noted that caregivers/family members can be in denial and find a dementia diagnosis difficult to accept. Denial in carers has been associated with mental health problems such as de pression. Denial may also cause problems between other members of the persons family or their friends. There may be disagreements between those who do accept the diagnosis and those who dont about whether (or how much) care the person needs. Caregiver support was reinforced and encouraged. (5) Frontotemporal dementia: (6) Palliative care by specialist: Plan Home with VNS and home PT Thursday, care mgt to assist They will need transport home for pt They would like PT to see pt and assist with OOB and trial of ambulation Recc asking nursing as well to have pt OOB for meals. Thank you for allowing us to participate in the ongoing care of this patient. Please don't hesitate to call or page with any additional concerns. Dr. Candace Denis DNP Director, Palliative Care Admission and Anticipated Discharge Date Admission Date: February 07, 2024 Subjective Hermes is about the same caregiver at bedside he is taking more po but not getting OOB bladder issues noted, ch was trialed but hoping to day for voiding trial family meeting planned for 1pm Review of Systems Review of Systems: Unobtainable due to cognitive status Physical Exam Constitutional: + cachectic and + frail appearing semi reclined in bed, eyes open but do not track. no response to verbal. He is unable to blink in response to questions or indicate an affirmative or negative answer. He has bilateral contractures of the upper extremities. Eyes: PERRL ENMT: Mouth: + dry oral mucous membranes Neck: trachea midline Respiratory: normal respiratory effort Auscultation: + diminished lung sounds Cardiovascular: Rate/Rhythm: regular rate and regular rhythm Gastrointestinal (Abdomen): Inspection/Auscultation: + scaphoid Percussion/Palpation: + guarding and abdomen soft Musculoskeletal: generalized weakness Skin: + turgor decreased, + skin tightening, + skin atrophy and + pallor Neurologic: non verbal Results & Data Vital Signs (Past 12 Hours) Vital Signs Temp Pulse Pulse Resp BP Pulse Ox O2 Del Method 02/12/24 20:36 37.2 C 69 20 150/66 H 96 Room Air 02/12/24 17:47 58 L 02/12/24 15:01 36.5 C 62 18 113/53 L 100 Room Air 02/12/24 11:15 36.7 C 53 L 18 118/63 100 Room Air Laboratory Results Abnormal lab results 02/12/24 Range/Units 07:57 RBC 2.99 L (4.70-6.10) M/uL Hgb 8.9 L (14.0-18.0) g/dl Hct 27.2 L (42.0-52.0) % Chloride 109 H (98-107) mmol/L Calcium 8.0 L (8.6-10.3) mg/dl Albumin 2.9 L (3.4-5.0) gm/dl Diagnostic Findings Chest X-Ray 02/07/24 07:57 XR chest 1V portable CLINICAL HISTORY: Sepsis COMPARISON STUDY: Chest CT February 02, 2015. Chest radiograph October 28, 2016. FINDINGS: Lung volumes are normal. Lungs are clear. There is no pneumothorax or pleural effusion. Cardiac size is normal. Mediastinal contours are normal. There is no evidence for pulmonary edema. IMPRESSION: No acute cardiopulmonary findings. ACT 112: Negative or not required by law. Electronically signed by: Jax Olmedo M.D. 02/07/2024 8:26 AM Renal Ultrasound 02/07/24 10:35 RENAL ULTRASOUND CLINICAL HISTORY: Acute kidney injury. COMPARISON STUDY: None. TECHNIQUE: Sonography of the kidneys and the urinary bladder was performed. FINDINGS: The right kidney measures 8.7 cm in maximal dimension and the left measures 9.9 cm. Kidneys are mildly echogenic. There is no hydronephrosis. Both ureteral jets were identified. There is bladder wall thickening. No renal calculi or masses are identified. Renal cortical thickness and size are normal. IMPRESSION: 1. No hydronephrosis. 2. Mild nonspecific bladder wall thickening. 3. Mild increased renal echogenicity. ACT 112: Negative or not required by law. Electronically signed by: Jax Olmedo M.D. 02/07/2024 11:38 AM Abdomen/Pelvis CT 02/12/24 10:49 CT OF THE ABDOMEN AND PELVIS WITHOUT CONTRAST CLINICAL HISTORY: unclear ? infection COMPARISON STUDY: Renal ultrasound February 07, 2024. TECHNIQUE: Axial images of the abdomen and pelvis were obtained without IV contrast. Images were reviewed in the axial, sagittal, and coronal planes. Automated exposure control was utilized for the study. A dose lowering technique was utilized adhering to the principles of ALARA. FINDINGS: Lung bases are unremarkable. No renal, ureteral or bladder calculi are present. A Ch balloon and gas within the bladder present. There is moderate bladder wall thickening. There is adjacent stranding and a small amount of fluid within the pelvis. No significant perinephric stranding is present. Evaluation of the remainder of the abdomen and pelvis is suboptimal on this unenhanced exam. Liver, spleen, adrenal glands and pancreas are unremarkable. There is no evidence for a bowel obstruction. There is a moderate amount of stool within the rectum. There is mild adjacent stranding and mild rectal wall thickening. There is no evidence for acute appendicitis. No fluid collections are present. There is no lymphadenopathy. Right acetabulum is shallow with chronic deformity right femoral head and severe right hip osteoarthritis. The findings are chronic. No acute fractures are identified. IMPRESSION: 1. No urinary calculi or hydronephrosis. 2. Moderate bladder wall thickening with adjacent stranding. This suggests cystitis. Ch balloon and gas within the bladder. 3. Moderate amount of stool within the colon. Mild rectal wall thickening. Adjacent stranding may be due to volume overload or cystitis. Stercoral colitis is considered less likely but could appear similar. 4. No bowel obstruction. 5. Small amount of fluid within the pelvis. ACT 112: Negative or not required by law. Electronically signed by: Jax Olmedo M.D. 02/12/2024 1:[address] 02/12/24 10:51 CT OF THE HEAD WITHOUT CONTRAST CLINICAL HISTORY: Altered mental status. COMPARISON STUDY: Head CT October 28, 2016. TECHNIQUE: Helical axial images of the head were obtained without IV contrast. Automated exposure control was utilized for the study. A dose lowering technique was utilized adhering to the principles of ALARA. FINDINGS: No acute intracranial hemorrhage, midline shift or mass effect is present. Severe bilateral frontotemporal volume loss has progressed since CT of October 28, 2016. Associated marked dilatation of the frontal and temporal horns of the lateral ventricles has also progressed. Basal cisterns are patent. There are no intra-axial collections. White matter hypodensities are chronic. There are no findings to suggest acute dural sinus thrombosis or acute territorial infarct. There are no calvarial fractures. Sphenoid sinuses are largely opa cified. Posterior ethmoid sinuses are also opacified. IMPRESSION: 1. No acute intracranial findings. 2. Progression of severe bilateral frontotemporal volume loss/encephalomalacia with associated marked dilatation of the frontal and temporal horns since CT of October 28, 2016. The CT appearance favors frontotemporal dementia. 3. Sphenoid and posterior ethmoid sinusitis, possibly acute. ACT 112: Negative or not required by law. Electronically signed by: Jax Olmedo M.D. 02/12/2024 1:03 PM PG Care Time/CCT Total # of Minutes Spent Total Time Spent with Patient: Total time spent is greater than 50% in coordination of care (as documented) at patient's floor/unit and/or counseling patient: I spent 95 minutes overall addressing this case: 15 min in medical data review/discussion with referring provider(s) and/or preparation for the visit 10 min in direct interaction with the patient/exam 40 min in Advance Care Planning/Goals of Care discussions as detailed above in note (must be >16min) 15 min in subsequent review and synthesis of assessment and plan 15 min communicating with other providers regarding the patient's case: Advanced Care Planning 14783 Advanced Care Planning 30 Min 15593 Advanced Care Planning Additional 30 Min [place] [address] SUB INP/OBS CARE 3/50MIN Patient Type Established History Comprehensive Exam Comprehensive Medical Decision Making High Complexity Diagnoses Weakness generalized R53.1 Myoclonus G25.3 Adult failure to thrive R62.7 Discussion about advance care planning held with family member Z71.0 Frontotemporal dementia G31.09; F02.80 Palliative care by specialist Z51.5 Additional Codes Advanced Care Planning - 28637 Advanced Care Planning 30 Min: 21315 Advanced Care Planning 30 Min ([id number]) Advanced Care Planning - 90211 Advanced Care Planning Additional 30 Min: 14053 Advanced Care Planning Additional 30 Min ([id number])
[2024-02-13] MEDS: POLYETHYLENE (MIRALAX) 17 GM PACK PO SCH (08:38)
--- NOTE | 2024-02-13 09:50 | Hospitalist Progress Note ---
Date of Service February 13, 2024 Assessment & Plan (1) Hypernatremia: (2) Adult failure to thrive: (3) Acute kidney injury: (4) Demand ischemia: Plan Mr. Kinsey is a 68-year-old male with past medical history of primary progressive aphasia, dementia, parkinsonism, hypertension, hyperlipidemia was brought to the hospital for concern of dehydration. On presentation to the ED, is normotensive, afebrile and saturating well on room air. Leukocytosis resolved for 48 hours. Intermittent fevers with no clear infectious source--skin clear, urine looks clear and repeat UA without growth, CTABD with stool burden (potentially contributing to urinary retention, delirium) Patient will likely discharge home on 02/14 with [facility] home services. goal for weekend is to aid in movement and optimize bowel regimen, as well as ensure proper/full voiding. PT/OT consult placed, await eval. #Hypernatremia-due to dehydration/decreased fluid intake-sodium improving on D5W. 154->148->42. Hypernatremia resolved -d/c continue fluids Stoke pathway not pursued as hypernatremia and uti likely contributing to symptoms CTM, eating well, encourage PO intake #GUERRERO-prerenal due to dehydration. resolved Creatinine improving from 1.9 on admission to 1.02 Avoid nephrotoxics. 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 Followed historically by [facility] On On Aricept 5mg. Neuro eval 11/25/22 exam was suggestive of parkinsonism. Prescribed Sinemet 25/100 TID. Continue above Palliative following: plan for trial of home health prior to discussing hospice PT/OT to eval for home PT/OT services Aspiration and reflux precautions Pureed diet, po as tolerated #HypertensionBP stable off of home losartan. Continue metoprolol PO #Hyperlipidemiacontinue Lipitor DVT prophylaxis- sc heparin Disposition- TBD. Urine culture: E coli, pansensitive. Palliative following for GOC discussion. Plan to discharge home with [facility] home health on 02/14 Time spent-approximately 60 minutes Admission and Anticipated Discharge Date Admission Date: February 07, 2024 Subjective NAEO Afebrile, multiple large bowel movements (consistent with burden noted on CT) Void trial successful Patient's at bedside--discussed plan today and course of weekend. Physical Exam Constitutional: thin, frail gentleman; working to wake up this morning Respiratory: normal respiratory effort, lungs clear to auscultation Cardiovascular: RRR, no murmur, no edema Gastrointestinal (Abdomen): normal bowel sounds, soft, nontender, no hepatosplenomegaly Musculoskeletal: rigid extremities, requires gentle manipulation to flex/extend arms and legs Results & Data Results & Data Vital Signs (Past 12 Hours) Vital Signs Temp Pulse Pulse Resp BP Pulse Ox O2 Del Method 02/13/24 07:43 59 L 02/13/24 07:42 36.9 C 60 20 111/61 98 Room Air 02/13/24 07:42 59 L 02/13/24 07:30 CPAP 02/13/24 04:04 36.5 C 60 20 108/60 98 CPAP 02/13/24 00:42 36.7 C 66 20 118/64 98 CPAP 02/12/24 23:00 64 02/12/24 22:01 CPAP Medications Administered Home Medications Medication Instructions Recorded Confirmed Last Taken atorvastatin 20 mg tablet 20 mg PO QAM 03/28/22 02/07/24 02/05/24 cetirizine 10 mg tablet 10 mg PO QAM 03/28/22 02/07/24 02/05/24 cholecalciferol (vitamin D3) 25 25 mcg PO QAM 03/28/22 02/07/24 02/05/24 mcg (1,000 unit) tablet (Vitamin D3) diclofenac sodium 1 % topical gel 2 g topical BID PRN knee pain 03/28/22 02/07/24 02/05/24 donepezil 5 mg tablet 5 mg PO HS 03/28/22 02/07/24 02/05/24 fluticasone propionate 50 2 spray intranasal QAM 03/28/22 02/07/2424 mcg/actuation nasal spray,suspension losartan 50 mg tablet 50 mg PO QAM 03/28/22 02/07/24 02/05/24 lutein 20 mg tablet 20 mg PO QAM 03/28/22 02/07/24 02/05/24 metoprolol tartrate 25 mg tablet 12.5 mg PO BID 03/28/22 02/07/24 02/05/24 multivitamin 1 tab PO QAM 03/28/22 02/07/24 02/05/24 omega 1-zyy-zxv-fish oil 120 500 cap PO QAM 03/28/22 02/07/24 02/05/24 mg-180 mg-500 mg capsule (Fish Oil) sertraline 50 mg tablet 50 mg PO QAM 03/28/22 02/07/24 02/05/24 gentamicin 0.1 % topical ointment 1 applic topical DAILY #15 grams 08/24/23 02/07/24 02/05/24 carbidopa 25 mg-levodopa 100 mg 1 tab PO QAM 02/07/24 02/07/24 02/05/24 tablet propylene glycol 0.6 % eye drops 1 drp ophthalmic (eye) BID 02/07/24 02/07/24 02/05/24 (Systane Balance) Active Medications Generic Name Dose Route Start Last Admin Trade Name Freq PRN Reason Stop Dose Admin Atorvastatin Calcium 20 mg 02/08/24 09:00 02/13/24 08:31 Atorvastatin 20 Mg Tab PO 03/09/24 08:59 20 mg QAM FIDELIA Administration Carbidopa/Levodopa 1 tab 02/08/24 09:00 02/13/24 08:31 Carbidopa/Levodopa 25/100mg Tab PO 03/09/24 08:59 1 tab QAM FIDELIA Administration Cefdinir 300 mg 02/10/24 16:00 02/13/24 03:25 Cefdinir 300 Mg Cap PO 02/15/24 15:59 300 mg Q12H FIDELIA Administration Protocol Cetirizine HCl 10 mg 02/08/24 09:00 02/11/24 08:33 Cetirizine Hcl 10 Mg Tablet PO 03/09/24 08:59 10 mg QAM FIDELIA Administration Donepezil HCl 5 mg 02/07/24 21:00 02/12/24 20:07 Donepezil Hcl 5 Mg Tab PO 03/08/24 20:59 5 mg HS FIDELIA Administration Doxazosin Mesylate 2 mg 02/11/24 21:00 02/12/24 20:07 Doxazosin Mesylate Tab 2 Mg Tab PO 03/12/24 20:59 2 mg HS FIDELIA Administration Heparin Sodium (Porcine) 5,000 units 02/07/24 21:00 02/13/24 08:32 Heparin Sod 5,000 Unit/0.5 Ml Vial SQ 03/08/24 20:59 5,000 units Q12 FIDELIA Administration Acetaminophen 650 mg/ EMPTY 65 mls @ 260 mls/hr 02/08/24 04:45 02/10/24 00:13 BAG IV 03/09/24 04:44 Infused Q8H PRN Infusion Pain/Fever Protocol Metoprolol Tartrate 12.5 mg 02/07/24 21:00 02/13/24 08:31 Metoprolol Tartrate 25 Mg Tab PO 03/08/24 20:59 12.5 mg BID FIDELIA Administration Multivitamins 1 tab 02/08/24 09:00 02/13/24 08:32 Multivitamin Tab PO 03/09/24 08:59 1 tab QAM FIDELIA Administration Polyethylene Glycol 17 gm 02/13/24 09:00 02/13/24 08:38 Polyethylene (Miralax) 17 Gm Pack PO 03/14/24 08:59 17 gm DAILY FIDELIA Administration Senna/Docusate Sodium 1 tab 02/12/24 15:00 02/13/24 08:31 Docusate Sodium/Senna 50/8.6mg Tab PO 03/13/24 14:59 1 tab QAM FIDELIA Administration Sertraline HCl 50 mg 02/08/24 09:00 02/13/24 08:32 Sertraline Hcl 50 Mg Tablet PO 03/09/24 08:59 50 mg QAM FIDELIA Administration Vitamin D 25 mcg 02/08/24 09:00 02/13/24 08:31 Cholecalciferol 25 Mcg (1000 Units) Tab PO 03/09/24 08:59 25 mcg QAM FIDELIA Administration
--- NOTE | 2024-02-14 11:29 | Hospitalist Progress Note ---
Date of Service February 14, 2024 Assessment & Plan (1) Hypernatremia: (2) Adult failure to thrive: (3) Acute kidney injury: (4) Demand ischemia: Plan Mr. Kinsey is a 68-year-old male with past medical history of primary progressive aphasia, dementia, parkinsonism, hypertension, hyperlipidemia was brought to the hospital for concern of dehydration. On presentation to the ED, is normotensive, afebrile and saturating well on room air. Leukocytosis resolved for 48 hours. Intermittent fevers with no clear infectious source--skin clear, urine looks clear and repeat UA without growth, CTABD with stool burden (potentially contributing to urinary retention, delirium). Patient doing well without ch and doxazosin. Bowel movements soft, not diarrheal in nature. Patient will likely discharge home on 02/14 [address] [facility] home services. goal for weekend is to aid in movement and optimize bowel regimen, as well as ensure proper/full voiding. PT/OT consult placed: will work with patient this afternoon. Spoke to at bedside: plan for home tomorrow, requested transport time ~5pm. Will discuss with case management. Discussed with monitoring stool output, measuring fluid intake and aiming for roughly 50oz water based upon weight as a goal. Will ensure regimen is documented in discharge planning. #Normocytic anemia Reviewed anemia labs from 07/2023, B12 885, Folate >20, Ferritin 287, Fe 80, TIBC 334, Trans. Sat 24%, retic count normal 1/64% Hemoglobin as been downtrending over course of last year Hgb 13 on admission iso dehydration and received ~ 5L fluid multiple--last level ~8.9-9 s/p rehydration, infection treatment No signs of bleed, bowels normal Will order anemia labs to assess for any room for optimization prior to dispo #Hypernatremia-due to dehydration/decreased fluid intake-sodium improving on D5W. 154->148->42. Hypernatremia resolved -d/c continue fluids Stoke pathway not pursued as hypernatremia and uti likely contributing to symptoms CTM, eating well, encourage PO intake #GUERRERO-prerenal due to dehydration. resolved Creatinine improving from 1.9 on admission to 1.02 Avoid nephrotoxics. 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 Followed historically by [facility] On On Aricept 5mg. Neuro eval 11/25/22 exam was suggestive of parkinsonism. Prescribed Sinemet 25/100 TID. Continue above Palliative following: plan for trial of home health prior to discussing hospice PT/OT to eval for home PT/OT services Aspiration and reflux precautions Will document fluid/nutrition recommendations per request in discharge instructions Pureed diet, po as tolerated #HypertensionBP stable off of home losartan. Continue metoprolol PO #Hyperlipidemiacontinue Lipitor DVT prophylaxis- sc heparin Disposition- TBD. Urine culture: E coli, pansensitive. Palliative following for GOC discussion. Plan to discharge home with [facility] home health on 02/14 Time spent-approximately 60 minutes Admission and Anticipated Discharge Date Admission Date: February 07, 2024 Subjective NAEO Patient's at bedside, reports eating well, voiding well. afebrile Was able to tolerate bedside chair for some time yesterday Physical Exam 2 Constitutional: frail gentleman, nonverbal, eyes open and tracking more this morning Respiratory: normal respiratory effort, lungs clear to auscultation Gastrointestinal (Abdomen): normal bowel sounds, soft, nontender, no hepatosplenomegaly Results & Data Results & Data Vital Signs (Past 12 Hours) Vital Signs Temp Pulse Pulse Resp BP Pulse Ox O2 Del Method 02/14/24 07:38 36.6 C 65 20 159/68 H 97 Room Air 02/14/24 07:23 BiPAP 02/14/24 07:22 49 L 02/14/24 03:50 36.9 C 58 L 16 126/55 L 99 Room Air 02/14/24 00:51 61 Medications Administered Home Medications Medication Instructions Recorded Confirmed Last Taken atorvastatin 20 mg tablet 20 mg PO QAM 03/28/22 02/07/24 02/05/24 cetirizine 10 mg tablet 10 mg PO QAM 03/28/22 02/07/24 02/05/24 cholecalciferol (vitamin D3) 25 25 mcg PO QAM 03/28/22 02/07/24 02/05/24 mcg (1,000 unit) tablet (Vitamin D3) diclofenac sodium 1 % topical gel 2 g topical BID PRN knee pain 03/28/22 02/07/24 02/05/24 donepezil 5 mg tablet 5 mg PO HS 03/28/22 02/07/24 02/05/24 fluticasone propionate 50 2 spray intranasal QAM 03/28/22 02/07/24 02/05/24 mcg/actuation nasal spray,suspension losartan 50 mg tablet 50 mg PO QAM 03/28/22 02/07/24 02/05/24 lutein 20 mg tablet 20 mg PO QAM 03/28/22 02/07/24 02/05/24 metoprolol tartrate 25 mg tablet 12.5 mg PO BID 03/28/22 02/07/24 02/05/24 multivitamin 1 tab PO QAM 03/28/22 02/07/24 02/05/24 omega 9-mgt-ojk-fish oil 120 500 cap PO QAM 03/28/22 02/07/24 02/05/24 mg-180 mg-500 mg capsule (Fish Oil) sertraline 50 mg tablet 50 mg PO QAM 03/28/22 02/07/24 02/05/24 gentamicin 0.1 % topical ointment 1 applic topical DAILY #15 grams 08/24/23 02/07/24 02/05/24 carbidopa 25 mg-levodopa 100 mg 1 tab PO QAM 02/07/24 02/07/24 02/05/24 tablet propylene glycol 0.6 % eye drops 1 drp ophthalmic (eye) BID 02/07/24 02/07/24 02/05/24 (Systane Balance) Active Medications Generic Name Dose Route Start Last Admin Trade Name Freq PRN Reason Stop Dose Admin Atorvastatin Calcium 20 mg 02/08/24 09:00 02/14/24 08:16 Atorvastatin 20 Mg Tab PO 03/09/24 08:59 20 mg QAM FIDELIA Administration Carbidopa/Levodopa 1 tab 02/08/24 09:00 02/14/24 08:17 Carbidopa/Levodopa 25/100mg Tab PO 03/09/24 08:59 1 tab QAM FIDELIA Administration Cefdinir 300 mg 02/10/24 16:00 02/14/24 04:14 Cefdinir 300 Mg Cap PO 02/15/24 15:59 300 mg Q12H FIDELIA Administration Protocol Cetirizine HCl 10 mg 02/08/24 09:00 02/11/24 08:33 Cetirizine Hcl 10 Mg Tablet PO 03/09/24 08:59 10 mg QAM FIDELIA Administration Donepezil HCl 5 mg 02/07/24 21:00 02/13/24 20:05 Donepezil Hcl 5 Mg Tab PO 03/08/24 20:59 5 mg HS FIDELIA Administration Doxazosin Mesylate 2 mg 02/11/24 21:00 02/13/24 20:05 Doxazosin Mesylate Tab 2 Mg Tab PO 03/12/24 20:59 2 mg HS FIDELIA Administration Heparin Sodium (Porcine) 5,000 units 02/07/24 21:00 02/14/24 08:17 Heparin Sod 5,000 Unit/0.5 Ml Vial SQ 03/08/24 20:59 5,000 units Q12 FIDELIA Administration Acetaminophen 650 mg/ EMPTY 65 mls @ 260 mls/hr 02/08/24 04:45 02/10/24 00:13 BAG IV 03/09/24 04:44 Infused Q8H PRN Infusion Pain/Fever Protocol Metoprolol Tartrate 12.5 mg 02/07/24 21:00 02/14/24 08:17 Metoprolol Tartrate 25 Mg Tab PO 03/08/24 20:59 12.5 mg BID FIDELIA Administration Multivitamins 1 tab 02/08/24 09:00 02/14/24 08:17 Multivitamin Tab PO 03/09/24 08:59 1 tab QAM FIDELIA Administration Polyethylene Glycol 17 gm 02/13/24 09:00 02/14/24 08:17 Polyethylene (Miralax) 17 Gm Pack PO 03/14/24 08:59 17 gm DAILY FIDELIA Administration Senna/Docusate Sodium 1 tab 02/12/24 15:00 02/14/24 08:17 Docusate Sodium/Senna 50/8.6mg Tab PO 03/13/24 14:59 1 tab QAM FIDELIA Administration Sertraline HCl 50 mg 02/08/24 09:00 02/14/24 08:16 Sertraline Hcl 50 Mg Tablet PO 03/09/24 08:59 50 mg QAM FIDELIA Administration Vitamin D 25 mcg 02/08/24 09:00 02/14/24 08:17 Cholecalciferol 25 Mcg (1000 Units) Tab PO 03/09/24 08:59 25 mcg QAM FIDELIA Administration
[2024-02-14 12:00] LABS: Hematocrit (blood only) 28.3 % (42.0-52.0); Hemoglobin 8.9 g/dl (14.0-18.0); Immature Retic Fraction 29.8 % (2.3-15.9); Reticulated Hemoglobin 32.6 pg (28.2-36.6); Reticulocyte % 1.86 % (0.50-2.00); Reticulocytes # 0.06 10^6/uL (0.020-0.100)
[2024-02-14 12:28] LABS: Ferritin 258.3 ng/ml (8-388)
[2024-02-14 12:36] LABS: Folate (Folic Acid),Ser orPlas > 22.30 ng/ml (>5.38)
[2024-02-14 12:37] LABS: Vitamin B12 767 pg/ml (180-914)
--- NOTE | 2024-02-15 13:50 | Hospitalist Progress Note ---
Date of Service February 15, 2024 Assessment & Plan (1) Hypernatremia: (2) Adult failure to thrive: (3) Acute kidney injury: (4) Demand ischemia: Plan Mr. Kinsey is a 68-year-old male with past medical history of primary progressive aphasia, dementia, parkinsonism, hypertension, hyperlipidemia was brought to the hospital for concern of dehydration. On presentation to the ED, is normotensive, afebrile and saturating well on room air. Leukocytosis resolved for 48 hours. Intermittent fevers with no clear infectious source--skin clear, urine looks clear and repeat UA without growth, CTABD with stool burden (potentially contributing to urinary retention, delirium). Patient doing well without ch and doxazosin. Bowel movements soft, not diarrheal in nature. Hypernatremia Due to dehydration Sodium levels normalized Monitor GUERRERO-prerenal due to dehydration Resolved with IV fluids Renal function back to baseline Avoid nephrotoxic agents as able Urinary retention Ch catheter discontinued Started on doxazosin As per prior provider Normocytic anemia Reviewed anemia labs from 07/2023, B12 885, Folate >20, Ferritin 287, Fe 80, TIBC 334, Trans. Sat 24%, retic count normal 1/64% Hemoglobin as been downtrending over course of last year Hgb 13 on admission iso dehydration and received ~ 5L fluid multiple--last level ~8.9-9 s/p rehydration, infection treatment No signs of bleed, bowels normal Advised to follow-up with hematology as outpatient for further recommendations Constipation Continue bowel regimen UTI Urine culture grew E. coli Urinary retention Blood cultures negative to date Cefepime transition to Omnicef Will complete antibiotic course today Ch catheter discontinued Voiding with no issues currently As per prior provider: Primary progressive aphasia Parkinsonism Functional quadriplegia due to Advanced dementia Dysphagia Severe protein calorie malnutrition Diagnosed in 2011 after 2 year history of language problems. Followed historically by [facility] On On Aricept 5mg. Neuro eval 11/25/22 exam was suggestive of parkinsonism. Prescribed Sinemet 25/100 TID. Continue home meds Appreciate palliative care input PT/OT to eval for home PT/OT services Aspiration and reflux precautions Will document fluid/nutrition recommendations per request in discharge instructions Pureed diet, po as tolerated Hypertension Continue metoprolol Resume losartan Hyperlipidemia continue Lipitor DVT Px: Heparin SQ CODE STATUS DNI DNR Disposition Home with home health Admission and Anticipated Discharge Date Admission Date: February 07, 2024 Subjective Patient is seen and examined at bedside Patient nonverbal at baseline Discussed with patient's family at bedside No new complaints as per family Voiding with no issues Plan to be discharged home today Review of Systems Review of Systems: Other Physical Exam Physical Exam: Physical Exam: Vitals signs as noted above General Appearance:Thin, frail, chronic ill appearing, non verbal, no apparent distress Head: normocephalic, Atraumatic Eyes: normal inspection, EOMI Neck: supple, Trachea midline Respiratory/Chest: Normal breath sounds, CTA, No accessory muscle use Cardiovascular: S1, S2, No murmur Abdomen/GI:Soft, Non tender, Bowel sounds present Extremities/Musculoskeletal:normal inspection, no edema Neurologic/Psych:Alert awake, quadriparesis Skin: normal color, warm Results & Data Results & Data Vital Signs (Past 12 Hours) Vital Signs Temp Pulse Pulse Resp BP Pulse Ox O2 Del Method 02/15/24 08:09 36.6 C 52 L 16 146/69 H 97 Room Air 02/15/24 07:46 Room Air 02/15/24 07:09 64 02/15/24 02:48 36.4 C L 53 L 15 118/60 99 Room Air, CPAP
--- NOTE | 2024-02-15 14:14 | Discharge Summary ---
Date of Service February 15, 2024 Admission HPI Per Admitting Provider History obtained from chart review and interview with the patient's son at the bedside Patient has a history of primary progressive aphasia, dementia, parkinsonism, hypertension, hyperlipidemia was brought to the hospital for concern of dehydration. He was noted to be tachycardic overnight by his family. Patient has not been eating well for last few weeks; recently his appetite has significantly decreased in past 2 to 3 days. Patient has history of dementia; is nonverbal at baseline, requires assistance for all ADLs, mostly bedbound. He also has history of dysphagia which has progressively gotten worsen in the last few weeks. He was recently seen primary care doctor 2 weeks back; was brought due to increasing weakness, decreased appetite and mild shortness of breath. Was prescribed clindamycin for possible pneumonia; did not take as chest x-ray at that time did not show any infiltrates. No reported history of fever, chills, shortness of breath or any discomfort noted. Patient lives with his family (with his and younger son). He has caregivers as needed. Family history; GI disorder in father and mother Social history; past smoker; quit over 30 years ago. Last endoscopy in March 2022; abnormal esophageal motility was seen. On presentation to the ED, is normotensive, afebrile and saturating well on room air. CBC reviewed; no leukocytosis. BMP reveals sodium of 154, BUN/creatinine of 64/1.9(baseline of 1.0 in July 2022). High sensitive troponin 57 pg/ml. EKG on admission showed normal sinus rhythm, no significant ST or T wave changes. Chest x-rayno pneumonia Admission Exam Per Admitting Provider Constitutional: Awake, nonverbal. Does not appear to be in any distress Respiratory: Bilateral vesicular breath sound Cardiovascular: RRR, no murmur, no edema Vessels: no JVD or carotid bruit Chest: normal inspection of chest Abdomen: Soft, nontender Musculoskeletal: no cyanosis or clubbing, extremities motor strength 5/5 Skin: no rashes, warm and dry normal turgor Neurologic: PERRL, EOMI, accommodation nl, no face palsy. He does not follow commands. Tremors noted on left hand Principal Diagnosis Dehydration Urinary Tract Infection Hyponatremia Urinary retention Acute kidney injury Discharge Data Allergies Allergy/AdvReac Type Severity Reaction Status Date / Time Penicillins Allergy Intermediate RASH Verified 02/07/24 08:32 shellfish derived Allergy Intermediate HIVES Verified 02/07/24 08:32 Consultations 02/07/24 09:35 ED Decision to Admit Stat 02/07/24 13:12 Consult Palliative Care Routine Procedures Performed Laboratory Results WBC 6.94 K/ul (4.8-10.8) 02/12/24 07:57 RBC 2.99 M/uL (4.70-6.10) L 02/12/24 07:57 Hgb 8.9 g/dl (14.0-18.0) L 02/14/24 11:32 Hct 28.3 % (42.0-52.0) L 02/14/24 11:32 MCV 91.0 fL (80.0-100.0) 02/12/24 07:57 MCH 29.8 pg (25.0-34.0) 02/12/24 07:57 MCHC 32.7 g/dL (32.0-36.0) 02/12/24 07:57 RDW Std Deviation 40.9 fL (36.4-46.3) 02/12/24 07:57 RDW Coeff of Gisselle 12.3 % (11.5-14.5) 02/12/24 07:57 Plt Count 162 K/uL (130-400) 02/12/24 07:57 MPV 10.4 fL (9.4-12.4) 02/12/24 07:57 Immature Gran % (Auto) 0.5 % 02/10/24 06:50 Neut % (Auto) 78.3 % 02/10/24 06:50 Lymph % (Auto) 11.8 % 02/10/24 06:50 Hendry % (Auto) 7.3 % 02/10/24 06:50 Eos % (Auto) 1.8 % 02/10/24 06:50 Baso % (Auto) 0.3 % 02/10/24 06:50 Reticulocyte % (Auto) 1.86 % (0.50-2.00) 02/14/24 11:32 Neut # (Auto) 10.26 K/uL (1.40-6.50) H 02/10/24 06:50 Lymph # (Auto) 1.55 K/uL (1.20-3.40) 02/10/24 06:50 Hendry # (Auto) 0.96 K/uL (0.11-0.59) H 02/10/24 06:50 Eos # (Auto) 0.23 K/uL (0.00-0.50) 02/10/24 06:50 Baso # (Auto) 0.04 K/uL (0.00-0.20) 02/10/24 06:50 Reticulocyte # 0.060 10^6/uL (0.020-0.100) 02/14/24 11:32 Immature Gran # (Auto) 0.07 K/uL (0.01-0.20) 02/10/24 06:50 Immature Retic Fraction 29.8 % (2.3-15.9) H 02/14/24 11:32 Retic Hgb Content 32.6 pg (28.2-36.6) 02/14/24 11:32 Sodium 139 mmol/L (136-145) 02/12/24 07:57 Potassium 3.8 mmol/L (3.5-5.1) 02/12/24 07:57 Chloride 109 mmol/L (98-107) H 02/12/24 07:57 Carbon Dioxide 25 mmol/L (21-32) 02/12/24 07:57 Anion Gap 5 (3-11) 02/12/24 07:57 BUN 17 mg/dl (6-23) 02/12/24 07:57 Creatinine 0.86 mg/dl (0.6-1.4) 02/12/24 07:57 Est Cr Clr Drug Dosing 52.5 ml/min 02/12/24 07:57 Est GFR ( Amer) 101.8 ml/min 02/12/24 07:57 Est GFR (Non-Af Amer) 87.9 ml/min 02/12/24 07:57 BUN/Creatinine Ratio 19.8 (10-20) 02/12/24 07:57 Glucose 99 mg/dl (70-99(Fasting)) 02/12/24 07:57 Lactate 1.6 mmol/L (0.4-2.0) 02/07/24 08:18 Calcium 8.0 mg/dl (8.6-10.3) L 02/12/24 07:57 Phosphorus 2.8 mg/dl (2.5-4.9) 02/09/24 05:21 Magnesium 2.2 mg/dl (1.7-2.4) 02/08/24 05:25 Iron 67 mcg/dl (35-175) 02/14/24 11:32 TIBC 232 mcg/dl (250-450) L 02/14/24 11:32 Unsaturated IBC 165 mcg/dl (155-355) 02/14/24 11:32 Transferrin % Sat 29 % (20-50) 02/14/24 11:32 Ferritin 258.3 ng/ml (8-388) 02/14/24 11:32 Total Bilirubin 0.3 mg/dl (0.2-1.0) 02/12/24 07:57 Direct Bilirubin 0.1 mg/dl (0-0.2) 02/07/24 08:18 AST 29 U/L (13-39) 02/12/24 07:57 ALT 16 U/L (7-52) 02/12/24 07:57 Alkaline Phosphatase 43 U/L (34-104) 02/12/24 07:57 Troponin I High Sens 47.3 pg/ml (0-20) H 02/07/24 10:19 Total Protein 6.3 gm/dl (6.0-8.3) 02/12/24 07:57 Albumin 2.9 gm/dl (3.4-5.0) L 02/12/24 07:57 Globulin 3.4 gm/dl (2.5-4.0) 02/12/24 07:57 Albumin/Globulin Ratio 0.9 (0.9-2) 02/12/24 07:57 Vitamin B12 767 pg/ml (180-914) 02/14/24 11:32 Folate > 22.30 ng/ml (>5.38) 02/14/24 11:32 Procalcitonin 0.08 ng/ml (0-0.5) 02/07/24 08:18 Urine Color Yellow 02/09/24 21:34 Urine Appearance Cloudy (Clear) A 02/09/24 21:34 Urine pH 5.5 (4.5-7.5) 02/09/24 21:34 Ur Specific Warren 1.029 (1.000-1.030) 02/09/24 21:34 Urine Protein 1+ (Negative) H 02/09/24 21:34 Urine Glucose (UA) Negative (Negative) 02/09/24 21:34 Urine Ketones Trace (Negative) H 02/09/24 21:34 Urine Blood 1+ (Negative) H 02/09/24 21:34 Urine Nitrite Negative (Negative) 02/09/24 21:34 Urine Bilirubin Negative (Negative) 02/09/24 21:34 Urine Urobilinogen Negative (Negative) 02/09/24 21:34 Ur Leukocyte Esterase 2+ (Negative) H 02/09/24 21:34 Urine WBC (Auto) >50 /hpf (0-5) H 02/09/24 21:34 Urine RBC (Auto) 3-5 /hpf (0-2) H 02/09/24 21:34 U Hyaline Cast (Auto) 3-5 /lpf (0-2) H 02/09/24 21:34 U Epithel Cells (Auto) 0-2 /hpf (0-2) 02/09/24 21:34 Urine Bacteria (Auto) None Seen (None Seen) 02/09/24 21:34 Adenovirus (PCR) Not Detected (NotDetected) 02/07/24 08:18 B. pertussis DNA (PCR) Not Detected (NotDetected) 02/07/24 08:18 B.parapertussis DNA PCR Not Detected (NotDetected) 02/07/24 08:18 C. pneumoniae DNA (PCR) Not Detected (NotDetected) 02/07/24 08:18 Coronavirus OC43 (PCR) Not Detected (NotDetected) 02/07/24 08:18 Coronavirus HKU1 (PCR) Not Detected (NotDetected) 02/07/24 08:18 Coronavirus 229E (PCR) Not Detected (NotDetected) 02/07/24 08:18 SARS-CoV-2 (PCR) Not Detected (NotDetected) 02/07/24 08:18 Coronavirus NL63 (PCR) Not Detected (NotDetected) 02/07/24 08:18 Human Metapneumovir PCR Not Detected (NotDetected) 02/07/24 08:18 Influenza Type A (PCR) Not Detected (NotDetected) 02/07/24 08:18 Influenza Type B (PCR) Not Detected (NotDetected) 02/07/24 08:18 M. pneumoniae (PCR) Not Detected (NotDetected) 02/07/24 08:18 Parainfluenza 1 (PCR) Not Detected (NotDetected) 02/07/24 08:18 Parainfluenza 2 (PCR) Not Detected (NotDetected) 02/07/24 08:18 Parainfluenza 3 (PCR) Not Detected (NotDetected) 02/07/24 08:18 Parainfluenza 4 (PCR) Not Detected (NotDetected) 02/07/24 08:18 RSV (PCR) Not Detected (NotDetected) 02/07/24 08:18 Entero/Rhino (PCR) Not Detected (NotDetected) 02/07/24 08:18 Impressions Chest X-Ray 02/07/24 07:57 XR chest 1V portable CLINICAL HISTORY: Sepsis COMPARISON STUDY: Chest CT February 02, 2015. Chest radiograph October 28, 2016. FINDINGS: Lung volumes are normal. Lungs are clear. There is no pneumothorax or pleural effusion. Cardiac size is normal. Mediastinal contours are normal. There is no evidence for pulmonary edema. IMPRESSION: No acute cardiopulmonary findings. ACT 112: Negative or not required by law. Electronically signed by: Jax Olmedo M.D. 02/07/2024 8:26 AM Renal Ultrasound 02/07/24 10:35 RENAL ULTRASOUND CLINICAL HISTORY: Acute kidney injury. COMPARISON STUDY: None. TECHNIQUE: Sonography of the kidneys and the urinary bladder was performed. FINDINGS: The right kidney measures 8.7 cm in maximal dimension and the left measures 9.9 cm. Kidneys are mildly echogenic. There is no hydronephrosis. Both ureteral jets were identified. There is bladder wall thickening. No renal calculi or masses are identified. Renal cortical thickness and size are normal. IMPRESSION: 1. No hydronephrosis. 2. Mild nonspecific bladder wall thickening. 3. Mild increased renal echogenicity. ACT 112: Negative or not required by law. Electronically signed by: Jax Olmedo M.D. 02/07/2024 11:38 AM Abdomen/Pelvis CT 02/12/24 10:49 CT OF THE ABDOMEN AND PELVIS WITHOUT CONTRAST CLINICAL HISTORY: unclear ? infection COMPARISON STUDY: Renal ultrasound February 07, 2024. TECHNIQUE: Axial images of the abdomen and pelvis were obtained without IV contrast. Images were reviewed in the axial, sagittal, and coronal planes. Automated exposure control was utilized for the study. A dose lowering technique was utilized adhering to the principles of ALARA. FINDINGS: Lung bases are unremarkable. No renal, ureteral or bladder calculi are present. A Ch balloon and gas within the bladder present. There is moderate bladder wall thickening. There is adjacent stranding and a small amount of fluid within the pelvis. No significant perinephric stranding is present. Evaluation of the remainder of the abdomen and pelvis is suboptimal on this unenhanced exam. Liver, spleen, adrenal glands and pancreas are unremarkable. There is no evidence for a bowel obstruction. There is a moderate amount of stool within the rectum. There is mild adjacent stranding and mild rectal wall thickening. There is no evidence for acute appendicitis. No fluid collections are present. There is no lymphadenopathy. Right acetabulum is shallow with chronic deformity right femoral head and severe right hip osteoarthritis. The findings are chronic. No acute fractures are identified. IMPRESSION: 1. No urinary calculi or hydronephrosis. 2. Moderate bladder wall thickening with adjacent stranding. This suggests cystitis. Ch balloon and gas within the bladder. 3. Moderate amount of stool within the colon. Mild rectal wall thickening. Adjacent stranding may be due to volume overload or cystitis. Stercoral colitis is considered less likely but could appear similar. 4. No bowel obstruction. 5. Small amount of fluid within the pelvis. ACT 112: Negative or not required by law. Electronically signed by: Jax Olmedo M.D. 02/12/2024 1:[address] 02/12/24 10:51 CT OF THE HEAD WITHOUT CONTRAST CLINICAL HISTORY: Altered mental status. COMPARISON STUDY: Head CT October 28, 2016. TECHNIQUE: Helical axial images of the head were obtained without IV contrast. Automated exposure control was utilized for the study. A dose lowering technique was utilized adhering to the principles of ALARA. FINDINGS: No acute intracranial hemorrhage, midline shift or mass effect is present. Severe bilateral frontotemporal volume loss has progressed since CT of October 28, 2016. Associated marked dilatation of the frontal and temporal horns of the lateral ventricles has also progressed. Basal cisterns are patent. There are no intra-axial collections. White matter hypodensities are chronic. There are no findings to suggest acute dural sinus thrombosis or acute territorial infarct. There are no calvarial fractures. Sphenoid sinuses are largely opacified. Posterior ethmoid sinuses are also opacified. IMPRESSION: 1. No acute intracranial findings. 2. Progression of severe bilateral frontotemporal volume loss/encephalomalacia with associated marked dilatation of the frontal and temporal horns since CT of October 28, 2016. The CT appearance favors frontotemporal dementia. 3. Sphenoid and posterior ethmoid sinusitis, possibly acute. ACT 112: Negative or not required by law. Electronically signed by: Jax Olmedo M.D. 02/12/2024 1:03 PM Ordered Studies 02/07/24 10:35 US Renal Bladder [US renal/blad retro comp] Routine 02/12/24 10:49 CT Abdomen and Pelvis [CT abd pelvis wo con] Urgent 02/12/24 10:51 CT head/brain wo con Urgent Hospital Course (1) Hypernatremia: (2) Adult failure to thrive: (3) Acute kidney injury: (4) Demand ischemia: Plan Mr. Kinsey is a 68-year-old male with past medical history of primary progressive aphasia, dementia, parkinsonism, hypertension, hyperlipidemia was brought to the hospital for concern of dehydration. On presentation to the ED, is normotensive, afebrile and saturating well on room air. Leukocytosis resolved for 48 hours. Intermittent fevers with no clear infectious source--skin clear, urine looks clear and repeat UA without growth, CTABD with stool burden (potentially contributing to urinary retention, delirium). Patient doing well without ch and doxazosin. Bowel movements soft, not diarrheal in nature. Hypernatremia Due to dehydration Sodium levels normalized Monitor GUERRERO-prerenal due to dehydration Resolved with IV fluids Renal function back to baseline Avoid nephrotoxic agents as able Urinary retention Ch catheter discontinued Started on doxazosin As per prior provider Normocytic anemia Reviewed anemia labs from 07/2023, B12 885, Folate >20, Ferritin 287, Fe 80, TIBC 334, Trans. Sat 24%, retic count normal 1/64% Hemoglobin as been downtrending over course of last year Hgb 13 on admission iso dehydration and received ~ 5L fluid multiple--last level ~8.9-9 s/p rehydration, infection treatment No signs of bleed, bowels normal Advised to follow-up with hematology as outpatient for further recommendations Constipation Continue bowel regimen UTI Urine culture grew E. coli Urinary retention Blood cultures negative to date Cefepime transition to Omnicef Will complete antibiotic course today Ch catheter discontinued Voiding with no issues currently As per prior provider: Primary progressive aphasia Parkinsonism Functional quadriplegia due to Advanced dementia Dysphagia Severe protein calorie malnutrition Diagnosed in 2011 after 2 year history of language problems. Followed historically by [facility] On On Aricept 5mg. Neuro eval 11/25/22 exam was suggestive of parkinsonism. Prescribed Sinemet 25/100 TID. Continue home meds Appreciate palliative care input PT/OT to eval for home PT/OT services Aspiration and reflux precautions Will document fluid/nutrition recommendations per request in discharge instructions Pureed diet, po as tolerated Hypertension Continue metoprolol Resume losartan Hyperlipidemia continue Lipitor DVT Px: Heparin SQ CODE STATUS DNI DNR Disposition Home with home health Total Time Total Time Spent Total Time Spent (In Minutes): 59 minutes Discharge Plan Discharge Items Patient Disposition: Home - Home Health Services Reason For Visit: NO IV CONTRAST dehydration Discharge Diagnosis: Dehydration, Urinary Tract Infection Hyponatremia Urinary retention Acute kidney injury Activity: As commented below Activity Comment: as tolerated Exercise/Sports: Gradually increase as tolerated Non-emergency contact: Primary Care Provider and Specialist Call non-emergency contact if: you have any medication questions and your symptoms worsen Follow-up/Referrals: Gregory Arreola DO [Primary Care Provider] - (Date & Time 02/23/2024 9:00 AM Provider Gregory Arreola DO Department Family Practice [facility] ) Diet: Regular Diet Texture: Pureed (blended smooth) Diet Comment: Mildly thick liquid Addtl Attending Provider Instructions: You were admitted for dehydration and urinary tract infection. You were noted to improve with IV fluids and antibiotics. You were transitioned to oral antibiotics which are nearly complete, you have one last dose of the following: -Cefdinir 300mg tablet, please take this evening upon returning home. Your hospital stay was complicated by urinary retention. This is like multifactorial given infection, prostate enlargement, and constipation. Please continue a bowel regimen at home to aim for a bowel movement every 1-2 days, with goal consistency of formed, but soft. The following medication was started to help with urinary retention: - Doxazosin 2mg at bedtime Please aim for 6-8 cups ( each cup is 1 ox) of fluid a day to prevent dehydration. Please continue to prioritize mouth care and oral hygiene. Please continue a diet of pureed foods, you can vary taste, temperature, and seasoning (alternating sweet and savory or bland foods of your choice). Please prioritize a protein based diet and consider supplementing meals with a Boost shake to add additional calories/protein/nutrients. Your Losartan was discontinued as your blood pressure have remained acceptable without this agent. Monitor your blood pressure regularly as advised. Discuss with your physician for further adjustment of medications as needed. Your Cetirizine was held as these medications can contribute to urinary retention. Addtl [place] Provider Instructions: Follow-up with your primary care physician Dr. Gregory Arreola on 02/23/2024 9:00 AM Follow-up with your editor sound as advised for further evaluation of anemia Seek immediate medical attention if your symptoms reoccur or worsen Please take all medications as instructed on discharge list below. Please call if you have any questions or problems. You can reach a [facility] hospitalist on duty at [facility] 24 hours a day by calling [phone] Pending Studies at Discharge: No Stand-Alone Forms: My [facility], Smoking Cessation Medications and DC Order Prescriptions: New cefdinir 300 mg Capsule 300 mg PO ONCE Qty: 1 0RF doxazosin 2 mg Tablet 2 mg PO HS Qty: 30 0RF Continued gentamicin 0.1 % ointment 1 applic topical DAILY Qty: 15 1RF atorvastatin 20 mg Tablet 20 mg PO QAM donepezil 5 mg Tablet 5 mg PO HS fluticasone propionate 50 mcg/actuation [place],Suspension 2 spray INTRANASAL QAM sertraline 50 mg Tablet 50 mg PO QAM metoprolol tartrate 25 mg Tablet 12.5 mg PO BID diclofenac sodium 1 % Gel 2 g TOPICAL BID PRN (Reason: knee pain) multivitamin Tablet 1 tab PO QAM cholecalciferol (vitamin D3) [Vitamin D3] 25 mcg (1,000 unit) Tablet 25 mcg PO QAM Fish Oil 120-180-500 mg Capsule 500 cap PO QAM lutein 20 mg Tablet 20 mg PO QAM carbidopa-levodopa 25-100 mg tablet 1 tab PO QAM Systane Balance 0.6 % Drops 1 drp OPHTHALMIC (EYE) BID Discontinued losartan 50 mg Tablet 50 mg PO QAM cetirizine 10 mg Tablet 10 mg PO QAM Discharge Orders: Discharge Order (Routine); Ordered 04/29/24 Ordered By: Josh Mujica Admission Data Admit Date/Time: 02/07/24 10:29 Attending Provider: Josh Mujica Admit Provider: Kamaljit Del Valle Primary Care Provider: Gregory Arreola Other Providers: Kamaljit Del Valle; Candace Denis; [facility]; [facility]
== END 2024-02-15 16:16 | disposition home health service (06) | DRG 682 ==
LOC: ED 07:27 → SUATTDRO 10:29 → EDINP 10:29 → 2N 13:12